=== PATIENT | female | born 1935 | race Caucasian/White ===

== ENCOUNTER 2020-09-03 17:27 | Inpatient (IN) | payer MEDICARE, OTHER, SELFPAY ==
--- NOTE | ~2020-09-03 | XR_ITS ---
EXAMINATION: XR chest 2V DATE: 09/10/2020 17:10 INDICATION: Shortness of breath, CHF exacerbation TECHNIQUE: AP and lateral views of the chest are obtained. COMPARISON: 09/08/2020 FINDINGS: There is stable cardiomegaly. Bibasilar airspace opacities persist with slight improvement on the right. Small pleural effusions are unchanged. There is no pneumothorax. Moderate osteoarthriti s is noted in the shoulders. There is a chronic T12 burst fracture. IMPRESSION: 1. Stable cardiomegaly. 2. Small pleural effusions. 3. Bibasilar airspace opacities with slight improvement on the right, consistent with atelectasis and /or pneumonia and/or pulmonary edema. Reviewed, dictated and finalized at location A. TRONIC GAMING DEVICE SUPERVISOR IMPRESSION: 1. Stable cardiomegaly. 2. Small pleural effusions. 3. Bibasilar airspace opacities with slight improvement on the right, consisten t with atelectasis and/or pneumonia and/or pulmonary edema.
--- NOTE | ~2020-09-03 | US_ITS ---
EXAMINATION: US venous doppler [facility] DATE: 09/08/2020 10:33 INDICATION: Lower limb edema. TECHNIQUE: Grayscale ultrasound images without and with compression and Doppler ultrasound images of the bilateral lower extremity veins were obtained. COMPARISON: None. FINDINGS: The visualized portions of right common femoral vein, profunda (deep) femoral vein, femoral vein, pop liteal vein, posterior tibial veins, and greater saphenous vein outflow are patent. The visualized portions of left common femoral vein, profunda femoral vein, femoral vein, popliteal v ein, posterior tibial veins, and greater saphenous vein outflow are patent. IMPRESSION: 1. No deep venous thrombosis. Reviewed, dictated and finalized at location B. ITY CONTROL SUPERVISOR
--- NOTE | ~2020-09-03 | CT_ITS ---
EXAMINATION: CT brain wo con DATE: 09/08/2020 14:40 INDICATION: Altered mental status. TECHNIQUE: Computed tomography (CT) of the head was performed without intravenous contrast. The mA wa s adjusted according to patient size. Iterative reconstruction technique was employed. The dose-lengt h product was 681.00 mGy-cm. COMPARISON: None FINDINGS: There are scattered areas of low attenuation in the cerebral white matter. There is no intr acranial hemorrhage, acute infarction, or abnormal intracranial mass lesion. The ventricles are zane l in size. There are likely changes of ocular lens replacement surgeries. There is mild mucosal thick ening in right maxillary sinus. The mastoid air cells are normal. IMPRESSION: 1. Extensive nonspecific cerebral white matter disease, which likely represents chronic small vessel ischemic disease. Reviewed, dictated and finalized at location B. NG COACH
--- NOTE | ~2020-09-03 | XR_ITS ---
EXAMINATION: XR chest 1V portable DATE: 09/08/2020 12:41 INDICATION: Shortness of breath TECHNIQUE: frontal view of the chest was obtained. COMPARISON: Chest radiograph dated 09/03/20 FINDINGS: Opacities at the bilateral lower lung zones. Blunting at the costophrenic angles consistent with smal l bilateral pleural effusions. No pneumothorax. Cardiomegaly. IMPRESSION: 1. Opacities in the bilateral lower lung zones consistent with small bilateral pleural effusions and associated basilar atelectasis, pneumonia, pulmonary edema or some combination thereof. 2. Cardiomegaly. Reviewed, dictated and finalized at location A. OPEDIC PHYSICAL THERAPIST IMPRESSION: 1. Opacities in the bilateral lower lung zones consistent with small bilateral pleural effusions and associated basilar atelectasis, pneumonia, pulmonary cherie a or some combination thereof. 2. Cardiomegaly.
--- NOTE | ~2020-09-03 | XR_ITS ---
EXAMINATION: XR chest 1V portable DATE: 09/03/2020 18:04 INDICATION: Diabetes, hypertension and atrial fibrillation presenting with weakness. TECHNIQUE: frontal view of the chest was obtained. COMPARISON: Chest radiograph dated 03/28/2018 FINDINGS: Bilateral lung volumes are decreased. There are opacities in the bilateral lower lung zones consisten t with small bilateral pleural effusions and associated basilar atelectasis and/or pneumonia. There a re perihilar groundglass opacities and increased interstitial pattern consistent with pulmonary edema . No pneumothorax. Cardiomegaly. Moderate scattered degenerative skeletal changes. IMPRESSION: 1. Bilateral lung disease with appearance favoring and congestive heart failure with hilar pulmonary edema, small bilateral pleural effusions and bibasilar atelectasis although differential would includ e pneumonia. 2. Cardiomegaly. Reviewed, dictated and finalized at location A. CARRIER IMPRESSION: 1. Bilateral lung disease with appearance favoring and congestive heart failure with hilar pulmonary edema, small bilateral pleural effusions and bibasilar at electasis although differential would include pneumonia. 2. Cardiomegaly.
[2020-09-03 17:31] VITALS: BP 150/97; PULSE 108; RESP 20; O2SAT 98
--- NOTE | 2020-09-03 17:52 | ECG_ITS ---
Measurements Intervals [place] Rate: 92 P: [place]: 0 QRS: -43 QRSD: 128 T: -27 QT: 363 QTc: 451 Interpretive Statements ATRIAL FIBRILLATION FREQUENT VENTRICULAR PREMATURE COMPLEXES LEFT AXIS DEVIATION LEFT BUNDLE BRANCH BLOCK ABNORMAL ECG Electronically Signed On 09-03-2020 19:56:27 CLAM [employer]OWER by Juan Carvalho D.O.
--- NOTE | 2020-09-03 18:07 | ED.GENADULT ---
HPI - General Adult General Chief complaint: Weakness Stated complaint: Weakness Time Seen by Provider: 09/03/20 17:33 Source: patient History of Present Illness HPI narrative: Patient is a 84 y/o female complaining of severe generalized weakness for several month, but it's worse during last few days. There is no known alleviating or exacerbating factor. She also has chronic bilateral leg swelling for years. She also has some abdominal swelling. Related Data Home Medications Medication Instructions Recorded Confirmed aspirin 81 mg tablet,delayed 81 mg PO DAILY 09/10/19 09/03/20 release alprazolam 1 mg PO DAILY PRN 09/03/20 09/03/20 ondansetron 8 mg PO Q8H PRN 09/03/20 09/03/20 Allergies Allergy/AdvReac Type Severity Reaction Status Date / Time duloxetine Allergy Severe ENTIRE Verified 09/03/20 19:51 BODY BECAME RED AND HOT W/ WEAKNESS, N/V meperidine AdvReac Unknown Confusion Verified 09/03/20 19:51 Review of Systems Constitutional: Constitutional: Denies chills, Denies fever(s), Denies headache(s) and Reports weakness Eyes: Eyes: Denies blurry vision ENT: Denies headache(s) and Denies neck pain Cardiovascular: Cardiovascular: Denies chest pain, Reports leg edema and Denies dyspnea Respiratory: Respiratory: Denies cough and Reports dyspnea Gastrointestinal: Gastrointestinal: Denies abdominal pain, Denies diarrhea, Denies nausea and Denies vomiting Genitourinary: Genitourinary: Denies hematuria and Denies dysuria Musculoskeletal: Musculoskeletal: Denies back pain and Denies neck pain Neurologic: Denies headache(s) and Reports weakness [facility] [place] Past Medical History Medical History (Updated 09/03/20 @ 22:03 by Archana Hernandez MD) Anxiety disorder, unspecified Bilateral primary osteoarthritis of knee Essential (primary) hypertension Iron deficiency anemia due to chronic blood loss Paroxysmal atrial fibrillation Type 2 diabetes mellitus without complications Family History Family History Mother Family history of lung cancer Hypertension Sibling Family history of diabetes mellitus in first degree relative Family history of malignant neoplasm of breast in first degree relative Grandparent Diabetes mellitus Acute myocardial infarction Other Carcinoma of colon Family history of malignant neoplasm of breast Social History Social History Smoking status: Never smoker Second hand tobacco smoke exposure: No Alcohol intake: never Substance use: never Gender identity (if verbalized by the patient): Female Spiritual care concerns: No Exam Const: General: no acute distress and well developed Orientation/consciousness: oriented to person, oriented to place, oriented to time and patient oriented x3 HENMT: Head: normocephalic Ears: external ears normal General nose exam: Normal external nose present Eyes: General: appearance normal, both eyes and all related structures Conjunctivae: conjunctivae normal Neck: Neck: normal visual inspection and full ROM Chest: Chest palpation & inspection: normal inspection of the chest and no tenderness Resp: Effort & Inspection: normal respiratory effort Auscultation: clear to auscultation bilaterally Cardio: Rate: regular rate Rhythm: abnormal rhythm irregularly irregular GI: GI Palp: No abdominal tenderness and Yes Soft to palpation Skin: General skin exam: normal color and turgor normal Neuro: General: oriented to person, oriented to place, oriented to time and patient oriented x3 Cognition (Neuro): normal cognition Extrem: General: normal to inspection, full ROM and pedal edema bilaterally Psych: Appearance: grossly normal Mental Status: mental status grossly normal Affect: normal affect Course Consultations Consultation #1: Discussed with Dr. Goff, who agrees to admit. Date: 09/03/20 Time: 20:04
[2020-09-03 18:59] LABS: Basophils Percent Auto 0.4 % (0.2-1.2); Eosinophils Absolute Auto 0.2 K/mm3 (0-0.3); Eosinophils Percent Auto 1.9 % (0-4.4); Hematocrit 35.8 % (37.0-47.0); Hemoglobin 11.4 g/dL (12.0-15.0); Immature Granulocyte Absolute 0.03 K/mm3 (0.00-0.031); Immature Granulocyte Percent A 0.3 % (0-0.5); Lymphocytes Absolute Auto 1.03 K/mm3 (0.9-3.2); Lymphocytes Percent Auto 10.9 % (18.3-44.2); Mean Corpuscular HGB Conc 31.8 g/dl (32-36); Mean Corpuscular Hemoglobin 26.3 pg (26-34); Mean Corpuscular Volume 82.5 fl (80-100); Mean Platelet Volume 12.3 fl (7.4-10.4); Monocytes Absolute Auto 0.7 K/mm3 (0.1-0.6); Monocytes Percent Auto 6.9 % (2.6-8.5); Neutrophils Absolute Auto 7.5 K/mm3 (1.3-6.7); Neutrophils Percent Auto 79.6 % (45.5-73.1); Platelet Count Result 219 k/mm3 (150-375); Red Blood Count 4.34 M/mm3 (4.2-5.4); Red Cell Distribution Width 19.3 % (11.5-14.5); White Blood Count 9.5 K/mm3 (4.5-10.0)
[2020-09-03 19:12] LABS: Alanine Aminotransferase 11 U/L (4-35); Albumin Level 3.7 g/dL (3.5-5.1); Alkaline Phosphatase 91 U/L (38-126); Anion Gap 7 mmol/L (8-16); Aspartate Amino Transferase 23 U/L (14-36); Bilirubin,Total 1.1 mg/dL (0.2-1.3); Blood Urea Nitrogen 21 mg/dL (7-17); Calcium 9.3 mg/dL (8.4-10.2); Carbon Dioxide 34 mmol/L (22-30); Chloride 97 mmol/L (98-107); Estimated CRCL calculation 41 ml/min; Estimated Glomerular Filt Rate 60; Glucose 144 mg/dL (65-105); Potassium 3.7 mmol/L (3.4-5.0); Sodium 138 mmol/L (137-145)
[2020-09-03 19:24] LABS: NT Pro B Type Natriuretic Pept 8690 PG/ML (5-100); Troponin I 0.016 ng/mL (0.000-0.034)
[2020-09-03 19:45] LABS: INR 1.3; Prothrombin Time 17.1 Seconds (11.1-14.7)
[2020-09-03] MEDS: FUROSEMIDE INJ 40 MG/4 ML VIAL IV PUSH (20:09)
[2020-09-03 21:00] VITALS: O2SAT 98
[2020-09-03 21:21] VITALS: BP 148/91; PULSE 86; RESP 18; TEMP 36.6; O2SAT 96
--- NOTE | 2020-09-03 21:26 | ADMGEN ---
This patient, Nelda Roman, was admitted to Medical Room 343-01. Patient/family oriented to hospital policies and general routines including ID bracelet, bed and alarms, visiting hours, pain management, procedures, bathroom and other care routines, personal items, smoking policy, room service/diet, and visiting hours. Information on how to activate the Rapid Response Team has been discussed. Patient/Family are encouraged to report perceived risks to care and to ask questions if they do not understand what they are told or what they should do.
[2020-09-03 21:30] VITALS: PULSE 92
[2020-09-03 21:48] VITALS: BP 142/98; PULSE 68; RESP 18; TEMP 36.2; O2SAT 98
[2020-09-03 21:57] LABS: Glucose Point of Care 127 (65-105)
[2020-09-03 22:03] LABS: Troponin I 0.015 ng/mL (0.000-0.034)
[2020-09-03 23:17] VITALS: BMI 30.2
[2020-09-04] VITALS (13 sets, daily range): BP systolic 100–154; BP diastolic 51–67; PULSE 68–95; RESP 16–18; TEMP 35.8–36.2; O2SAT 90–99
--- NOTE | 2020-09-04 | ECHO_ITS ---
Patient Info Name: Nelda Roman Age: 84 years : 1935 Gender: Female Ht: 63 in Wt: 170 lbs BSA: 1.88 m2 HR: 86 bpm BP: 154 / 67 mmHg Heart Rhythm: Atrial Fibrillation Technical Quality: Good Exam Date: 09/04/2020 8:23 AM Exam Location: [facility] Exam Room: 341 Patient Status: Inpatient Admit Date: 09/03/2020 Staff Ordering Physician: Awais Sanchez PA-C Irrigation Service Technician: Heaven Santamaria RDCS Attending Provider: Awais Sanchez PA-C Referring Physician: Daniel RICHMOND; Exam Type: CA echo doppler color flow Study Info Complete two-dimensional, color flow and Doppler transthoracic echocardiogram is performed. Summary 1. Left ventricular chamber dimension is mildly enlarged. 2. Left ventricular systolic function is moderately reduced, estimated at 35%. 3. Left atrial chamber dimension is moderately enlarged. 4. Right atrial chamber dimension is severely enlarged. 5. There is no aortic valve stenosis. 6. There is mild to moderate mitral valve regurgitation. 7. There is mild tricuspid valve regurgitation. 8. Severe pulmonary hypertension, estimated pulmonary arterial systolic pressure is 68 mmHg. 9. There is small pericardial effusion without tamponade physiology. Left pleural effusion noted. Left Ventricle Left ventricular chamber dimension is mildly enlarged. Left ventricular systolic function is moderately reduced, estimated at 35%. There is mildly increased left ventricular wall thickness. Left ventricular septal wall motion is abnormal with septal motion related to bundle branch block. The left ventricular diastolic function is indeterminate. Right Ventricle Right ventricular chamber dimension is normal. Right ventricular systolic function is reduced. Left Atria Left atrial chamber dimension is moderately enlarged. Right Atria Right atrial chamber dimension is severely enlarged. Aortic Valve The aortic valve is trileaflet. There is mild aortic valve sclerosis. There is no aortic valve stenosis. There is mild aortic valve regurgitation. Pulmonic Valve The pulmonic valve is normal. There is mild pulmonic regurgitation. Mitral Valve The mitral valve has thickened leaflets. There is mild to moderate mitral valve regurgitation. The mitral valve annulus is mildly calcified. Tricuspid Valve The tricuspid valve leaflets are normal. There is mild tricuspid valve regurgitation. Severe pulmonary hypertension, estimated pulmonary arterial systolic pressure is 68 mmHg. Pericardium/Pleural The pericardium appears normal. There is small pericardial effusion without tamponade physiology. Left pleural effusion noted. Inferior Vena Cava Normal inferior vena cava with no collapse upon inspiration consistent with elevated right atrial pressure, 10 mmHg. Aorta The aortic root size at the sinus of Valsalva is normal. There is mild aortic atherosclerosis. Left Ventricular Outflow Tract Name Value Normal LVOT 2D LVOT Diameter 2.0 cm LVOT Doppler LVOT Peak Gradient 3 mmHg LVOT Mean Gradient 1 mmHg LVOT VTI
[2020-09-04 01:30] LABS: Troponin I < 0.012 ng/mL (0.000-0.034)
[2020-09-04 08:54] LABS: Anion Gap 7 mmol/L (8-16); Blood Urea Nitrogen 21 mg/dL (7-17); Calcium 8.8 mg/dL (8.4-10.2); Carbon Dioxide 34 mmol/L (22-30); Chloride 97 mmol/L (98-107); Estimated CRCL calculation 46 ml/min; Estimated Glomerular Filt Rate > 60; Glucose 104 mg/dL (65-105); Magnesium 1.8 mg/dL (1.6-2.3); Potassium 3.2 mmol/L (3.4-5.0); Sodium 138 mmol/L (137-145)
[2020-09-04] MEDS: traMADol HCL (*CRX) 50 MG TABLET PO ×2 (09:42→20:40)
[2020-09-04] MEDS: PANTOPRAZOLE 40 MG TABLET PO ×2 (09:44→20:40)
[2020-09-04] MEDS: carvediloL 3.125 MG TABLET PO ×2 (09:44→20:40)
[2020-09-04] MEDS: LOSARTAN POTASSIUM 100 MG TABLET PO (09:44)
[2020-09-04] MEDS: ASPIRIN 81 MG ENTERIC TABLET PO (09:44)
[2020-09-04] MEDS: ESCITALOPRAM OXALATE 10 MG TABLET 20 MG PO (09:44)
[2020-09-04] MEDS: FUROSEMIDE INJ 40 MG/4 ML VIAL IV PUSH (09:44)
--- NOTE | 2020-09-04 10:03 | PM.IMHP ---
H&P: HPI History of Present Illness Date/Time: 09/04/20 10:03 Chief complaint: weakness Narrative: Nelda Roman is a 84 year old female with history of CAD, cardiomyopathy (EF of 35%-40% on cardiac cath on 05/2011 per EMR), HTN, GERD, depression/anxiety, past GI bleed (03/2019), and a. fib (not on a/c, rate controlled) who presented to the ED on progressive weakness over the past several weeks. Patient states her weakness has been slowly worsening to a point where she contacted her daughter as she was unable to perform her daily activities and felt miserable on 09/03 prompting her to come into the hospital for further evaluation. It is hard to discern actual timeframe of events as she very talkative and difficult to keep to the topics at hand. Given that, she states she also has had increasing shortness of breath on lesser and lesser exertion and has been noting progressively worsening swelling in her LE the past couple of weeks. She notes she used to see Dr. Scott but no longer sees her nor any other shake packer. She states she also has been nauseous the past several days stating her prescribed anti-emetic medications help very little the past several days, but is somewhat certain she takes her home losartan/HCTZ as prescribed. She does note that she drinks a lot of water at home. She also reports orthopnea, stating she sleeps in a recliner as she cannot lie flat without getting SOB or having back pain. She has no other complaints at this moment. Denies any sick contacts at home. No recent respiratory illness. Denies f/c/s, headaches, dizziness, lightheadedness, cp/palpitations, cough, vomiting, abd pain, changes in BMs, dysuria, hematuria, cloudy urine, calf pain Review of Systems Review of Systems: All systems reviewed & are unremarkable except as noted in HPI and below PMFSH Past Medical History Medical History Anxiety disorder, unspecified Bilateral primary osteoarthritis of knee Cardiomyopathy Cholelithiasis s/p cholecystectomy Essential (primary) hypertension History of GI bleed 03/2019 Iron deficiency anemia due to chronic blood loss Paroxysmal atrial fibrillation Type 2 diabetes mellitus without complications Surgical History Surgical History History of appendectomy History of back surgery History of cholecystectomy History of hysterectomy History of knee surgery Family History Family History Mother Family history of lung cancer Hypertension Sibling Family history of diabetes mellitus in first degree relative Family history of malignant neoplasm of breast in first degree relative Grandparent Diabetes mellitus Acute myocardial infarction Other Carcinoma of colon Family history of malignant neoplasm of breast Social History Social History (Updated 09/04/20 @ 10:23 by Awais Sanchez PA-C) Social History: Patient lives at home alone with daughter occasionally checking in. Wishes her Daughter to be surrogate MDM. She wishes to be DNR. Her PCP is Dr. Galeas Smoking status: Never smoker Second hand tobacco smoke exposure: No Alcohol intake: never Substance use: never Gender identity (if verbalized by the patient): Female Spiritual care concerns: No Meds Home Medications and Allergies Home Medications Medication Instructions Recorded Confirmed Type aspirin 81 mg tablet,delayed 81 mg PO DAILY 09/10/19 09/03/20 History release promethazine 25 mg tablet 25 mg PO TID PRN #40 tablet 12/31/19 09/03/20 Rx carvedilol 3.125 mg tablet 3.125 mg PO Q12H #180 tablet 03/05/20 09/03/20 Rx escitalopram oxalate 20 mg tablet 20 mg PO DAILY #90 tablet 03/05/20 09/03/20 Rx losartan 100 1 tablet PO DAILY #90 tablet 03/05/20 09/03/20 Rx mg-hydrochlorothiazide 25 mg tablet pantoprazole 40 mg tablet,delayed 40 mg PO QAM #90 tablet
[2020-09-04 12:05] LABS: Glucose Point of Care 156 (65-105)
[2020-09-04 17:03] LABS: Glucose Point of Care 113 (65-105)
[2020-09-04] MEDS: POTASSIUM CHLORIDE 20 MEQ PACKET (FOR LIQUID) 60 MEQ PO (17:06)
[2020-09-04 20:48] LABS: Glucose Point of Care 147 (65-105)
[2020-09-05] VITALS (10 sets, daily range): BP systolic 132–155; BP diastolic 61–90; PULSE 70–88; RESP 14–18; TEMP 36.1–37.1; O2SAT 92–99
[2020-09-05 06:11] LABS: Hemoglobin A1C 5.5 % (<5.7)
[2020-09-05 07:10] LABS: Blood Urea Nitrogen 22 mg/dL (7-17); Calcium 8.9 mg/dL (8.4-10.2); Carbon Dioxide > 40 mmol/L (22-30); Chloride 94 mmol/L (98-107); Estimated CRCL calculation 41 ml/min; Estimated Glomerular Filt Rate 60; Glucose 93 mg/dL (65-105); Magnesium 1.7 mg/dL (1.6-2.3); Potassium 3.4 mmol/L (3.4-5.0); Sodium 138 mmol/L (137-145)
[2020-09-05] MEDS: ASPIRIN 81 MG ENTERIC TABLET PO (08:01)
[2020-09-05] MEDS: ESCITALOPRAM OXALATE 10 MG TABLET 20 MG PO (08:01)
[2020-09-05] MEDS: LOSARTAN POTASSIUM 100 MG TABLET PO (08:01)
[2020-09-05] MEDS: carvediloL 3.125 MG TABLET PO ×2 (08:02→21:43)
[2020-09-05] MEDS: FUROSEMIDE INJ 40 MG/4 ML VIAL IV PUSH (08:02)
[2020-09-05] MEDS: PANTOPRAZOLE 40 MG TABLET PO ×2 (08:22→21:42)
[2020-09-05 08:42] LABS: Hematocrit 31.3 % (37.0-47.0); Hemoglobin 10.1 g/dL (12.0-15.0); Mean Corpuscular HGB Conc 32.3 g/dl (32-36); Mean Corpuscular Hemoglobin 26.6 pg (26-34); Mean Corpuscular Volume 82.6 fl (80-100); Mean Platelet Volume 12.9 fl (7.4-10.4); Platelet Count Result 190 k/mm3 (150-375); Red Blood Count 3.79 M/mm3 (4.2-5.4); Red Cell Distribution Width 19.2 % (11.5-14.5); White Blood Count 10.3 K/mm3 (4.5-10.0)
[2020-09-05 09:11] LABS: Glucose Point of Care 102 (65-105)
--- NOTE | 2020-09-05 10:13 | PM.IMPN ---
Progress Note: A&P Assessment and Plan (1) Acute on chronic systolic (congestive) heart failure: Code(s): I50.23 - Acute on chronic systolic (congestive) heart failure Status: Acute Assessment and Plan: With acute respiratory failure with hypoxia after admitted to the floor; was placed on 2L O2 on 09/04; now weaned to 1L O2. B/l LE edema somewhat improving. CXR 09/03 showing evidence of CHF exacerbation. Echo 09/04 shows EF of 35%, severe pulm hypertension, small pericardial effusion noted without evidence of tamponade. Similar EF cath findings in 2010. Followed Dr. Scott but stopped going to see her and does not wish to see her again. Will continue IV 40 mg lasix daily for now Wean supplemental O2 as tolerated Monitor I/Os, daily weights 2g Na diet, fluid restriction Monitor (2) Weakness: Code(s): R53.1 - Weakness Status: Acute Assessment and Plan: Progressive weakness over the past several weeks. Possibly due to worsening CHF, but also deconditioning. Pt/OT Patient appears to not be agreeable to SNF/rehab at this moment Monitor (3) Anxiety disorder, unspecified: Qualifiers: Anxiety disorder type: generalized anxiety disorder Qualified Code(s): F41.1 - Generalized anxiety disorder Code(s): F41.9 - Anxiety disorder, unspecified Status: Acute Assessment and Plan: No acute issues at this time Continue home medications (4) Essential (primary) hypertension: Code(s): I10 - Essential (primary) hypertension Status: Acute Assessment and Plan: BP 130s sys this morning Continue coreg, losartan Will do IV diuresis with Lasix and hold HCTZ for now Monitor with diuresis (5) Paroxysmal atrial fibrillation: Code(s): I48.0 - Paroxysmal atrial fibrillation Status: Acute Assessment and Plan: Rate controlled. Not on any a/c partly due to past lower GI bleed and mainly because she refuses any a/c Continue coreg at this time Monitor Tele for now (6) Type 2 diabetes mellitus without complications: Code(s): E11.9 - Type 2 diabetes mellitus without complications Status: Acute Assessment and Plan: Does not appear to be on any medications at home. A1c 5.5 Accuchecks ACHS, hypoglycemia protocol, correctional insulin, 2g Na diet for now (7) Nausea: Code(s): R11.0 - Nausea Status: Acute Assessment and Plan: Appears to be chronic in nature as she is on multiple antiemetics but notes that they do not help some of the time. This appears to have improved since yesterday. Will continue Zofran for now and will make adjustments as needed Suspect her GERD is playing a role given her vague abdominal discomfort associated with her Nausea; will continue increased PPI frequency at Q12 Will hold NSAIDS for now Consider GI consult if no improvement; she may need a EGD in the future to rule out possible gastritis/ulcers given her NSAID usage (8) Low back pain: Qualifiers: Chronicity: chronic Back pain laterality: bilateral Sciatica presence: without sciatica Qualified Code(s): M54.5 - Low back pain; G89.29 - Other chronic pain Code(s): M54.5 - Low back pain Status: Acute Assessment and Plan: No complaints for me today Will continue her home tramadol Monitor (9) Iron deficiency anemia due to chronic blood loss: Code(s): D50.0 - Iron deficiency anemia secondary to blood loss (chronic) Status: Acute Assessment and Plan: H&H appears stable compared to previous year. No evidence of acute blood loss Monitor F/u with PCP Daily H&H
[2020-09-05 11:23] LABS: Glucose Point of Care 96 (65-105)
[2020-09-06 05:28] VITALS: BP 132/88; PULSE 75; RESP 20; TEMP 36.3; O2SAT 96
[2020-09-06 05:38] LABS: Hemoglobin 10.2 g/dL (12.0-15.0); Mean Corpuscular HGB Conc 31.9 g/dl (32-36); Mean Corpuscular Hemoglobin 25.9 pg (26-34); Mean Corpuscular Volume 81.2 fl (80-100); Mean Platelet Volume 12.3 fl (7.4-10.4); Platelet Count Result 208 k/mm3 (150-375); Red Blood Count 3.94 M/mm3 (4.2-5.4); Red Cell Distribution Width 19.1 % (11.5-14.5); White Blood Count 9.1 K/mm3 (4.5-10.0)
[2020-09-06 06:28] LABS: Blood Urea Nitrogen 24 mg/dL (7-17); Calcium 9.1 mg/dL (8.4-10.2); Carbon Dioxide > 40 mmol/L (22-30); Chloride 94 mmol/L (98-107); Estimated CRCL calculation 41 ml/min; Estimated Glomerular Filt Rate 60; Glucose 86 mg/dL (65-105); Magnesium 1.6 mg/dL (1.6-2.3); Potassium 2.9 mmol/L (3.4-5.0); Sodium 139 mmol/L (137-145)
[2020-09-06 09:00] VITALS: O2SAT 91
[2020-09-06] MEDS: ASPIRIN 81 MG ENTERIC TABLET PO (09:06)
[2020-09-06] MEDS: PANTOPRAZOLE 40 MG TABLET PO ×2 (09:06→20:03)
[2020-09-06] MEDS: LOSARTAN POTASSIUM 100 MG TABLET PO (09:06)
[2020-09-06] MEDS: ESCITALOPRAM OXALATE 10 MG TABLET 20 MG PO (09:06)
[2020-09-06 09:07] VITALS: PULSE 74
[2020-09-06] MEDS: FUROSEMIDE INJ 40 MG/4 ML VIAL IV PUSH (09:07)
[2020-09-06] MEDS: carvediloL 3.125 MG TABLET PO ×2 (09:07→20:03)
[2020-09-06] MEDS: POTASSIUM CHLORIDE 20 MEQ TABLET 40 MEQ PO (09:30)
[2020-09-06] MEDS: ONDANSETRON HCL ODT 4 MG TABLET PO (12:29)
--- NOTE | 2020-09-06 12:38 | PM.IMPN ---
Progress Note: A&P Assessment and Plan (1) Acute on chronic systolic (congestive) heart failure: Code(s): I50.23 - Acute on chronic systolic (congestive) heart failure Status: Acute Assessment and Plan: With acute respiratory failure with hypoxia after admitted to the floor; was placed on 2L O2 on 09/04; now weaned to 1L O2. B/l LE edema somewhat improving. CXR 09/03 showing evidence of CHF exacerbation. Echo 09/04 shows EF of 35%, severe pulm hypertension, small pericardial effusion noted without evidence of tamponade. Similar EF cath findings in 2010. Followed Dr. Scott but stopped going to see her and does not wish to see her again. Lung exam appears to have improved since yesterday Will continue IV 40 mg lasix daily for now Wean supplemental O2 as tolerated Monitor I/Os, daily weights 2g Na diet, fluid restriction Monitor (2) Weakness: Code(s): R53.1 - Weakness Status: Acute Assessment and Plan: Progressive weakness over the past several weeks. Possibly due to worsening CHF, but also deconditioning. Pt/OT Patient not agreeable to SNF/rehab at this moment; wishes to go home Monitor (3) Anxiety disorder, unspecified: Qualifiers: Anxiety disorder type: generalized anxiety disorder Qualified Code(s): F41.1 - Generalized anxiety disorder Code(s): F41.9 - Anxiety disorder, unspecified Status: Acute Assessment and Plan: No acute issues at this time Continue home medications (4) Essential (primary) hypertension: Code(s): I10 - Essential (primary) hypertension Status: Acute Assessment and Plan: BP 130s sys this morning Continue coreg, losartan Will do IV diuresis with Lasix and hold HCTZ for now Monitor with diuresis (5) Paroxysmal atrial fibrillation: Code(s): I48.0 - Paroxysmal atrial fibrillation Status: Acute Assessment and Plan: Rate controlled. Not on any a/c partly due to past lower GI bleed and mainly because she refuses any a/c Continue coreg at this time Monitor (6) Type 2 diabetes mellitus without complications: Code(s): E11.9 - Type 2 diabetes mellitus without complications Status: Acute Assessment and Plan: Does not appear to be on any medications at home. A1c 5.5 2g Na diet for now Monitor daily serum glucose (7) Nausea: Code(s): R11.0 - Nausea Status: Acute Assessment and Plan: Appears to be chronic in nature as she is on multiple antiemetics but notes that they do not help some of the time. Slight nausea this afternoon after she had her morning meds, but has not asked for her antiemetic. Will continue Zofran for now and will make adjustments as needed Suspect her GERD is playing a role given her vague abdominal discomfort associated with her Nausea; will continue increased PPI frequency at Q12 Will hold NSAIDS for now Consider GI consult if no improvement; she may need a EGD in the future to rule out possible gastritis/ulcers given her NSAID usage (8) Low back pain: Qualifiers: Chronicity: chronic Back pain laterality: bilateral Sciatica presence: without sciatica Qualified Code(s): M54.5 - Low back pain; G89.29 - Other chronic pain Code(s): M54.5 - Low back pain Status: Acute Assessment and Plan: No complaints for me today Will continue her home tramadol Monitor (9) Iron deficiency anemia due to chronic blood loss: Code(s): D50.0 - Iron deficiency anemia secondary to blood loss (chronic) Status: Acute Assessment and Plan: H&H appears stable compared to previous year. No evidence of acute blood loss
[2020-09-06 15:37] VITALS: BP 124/68; PULSE 80; RESP 18; TEMP 36.4; O2SAT 95
[2020-09-06 15:50] LABS: Anion Gap 5 mmol/L (8-16); Blood Urea Nitrogen 23 mg/dL (7-17); Calcium 9.4 mg/dL (8.4-10.2); Carbon Dioxide 39 mmol/L (22-30); Chloride 95 mmol/L (98-107); Estimated CRCL calculation 37 ml/min; Estimated Glomerular Filt Rate 53; Glucose 122 mg/dL (65-105); Potassium 3.9 mmol/L (3.4-5.0); Sodium 139 mmol/L (137-145)
[2020-09-06 20:03] VITALS: PULSE 74
[2020-09-06 20:12] VITALS: BP 152/82; PULSE 127; RESP 18; TEMP 37.3; O2SAT 94
[2020-09-07] VITALS (10 sets, daily range): BP systolic 133–161; BP diastolic 90–108; PULSE 90–146; RESP 20; TEMP 36.3–36.6; O2SAT 96–97
[2020-09-07 06:52] LABS: Blood Urea Nitrogen 24 mg/dL (7-17); Calcium 9.6 mg/dL (8.4-10.2); Carbon Dioxide > 40 mmol/L (22-30); Chloride 94 mmol/L (98-107); Estimated CRCL calculation 46 ml/min; Estimated Glomerular Filt Rate > 60; Glucose 120 mg/dL (65-105); Magnesium 1.6 mg/dL (1.6-2.3); Potassium 3.4 mmol/L (3.4-5.0); Sodium 141 mmol/L (137-145)
[2020-09-07] MEDS: carvediloL 3.125 MG TABLET PO ×2 (07:46→22:58)
[2020-09-07] MEDS: ASPIRIN 81 MG ENTERIC TABLET PO (07:47)
[2020-09-07] MEDS: ESCITALOPRAM OXALATE 10 MG TABLET 20 MG PO (07:47)
[2020-09-07] MEDS: PANTOPRAZOLE 40 MG TABLET PO ×2 (07:47→22:57)
[2020-09-07] MEDS: FUROSEMIDE INJ 40 MG/4 ML VIAL IV PUSH ×2 (07:47→17:31)
[2020-09-07] MEDS: LOSARTAN POTASSIUM 100 MG TABLET PO (07:47)
--- NOTE | 2020-09-07 09:05 | PM.IMPN ---
Progress Note: A&P Assessment and Plan (1) Acute on chronic systolic (congestive) heart failure: Code(s): I50.23 - Acute on chronic systolic (congestive) heart failure Status: Acute Assessment and Plan: With acute respiratory failure with hypoxia after admitted to the floor; was placed on 2L O2 on 09/04; now weaned to 1L O2. B/l LE edema somewhat improving. CXR 09/03 showing evidence of CHF exacerbation. Echo 09/04 shows EF of 35%, severe pulm hypertension, small pericardial effusion noted without evidence of tamponade. Similar EF cath findings in 2010. Followed Dr. Scott but stopped going to see her and does not wish to see her again. Lung exam appears to be stable since yesterday Will continue IV 40 mg lasix daily for now. Will do another IV 40 mg lasix once this afternoon, as well Wean supplemental O2 as tolerated Monitor I/Os, daily weights 2g Na diet, fluid restriction Monitor (2) Weakness: Code(s): R53.1 - Weakness Status: Acute Assessment and Plan: Progressive weakness over the past several weeks. Possibly due to worsening CHF, but also deconditioning. Pt/OT Patient not agreeable to SNF/rehab at this moment; wishes to go home Monitor (3) Anxiety disorder, unspecified: Qualifiers: Anxiety disorder type: generalized anxiety disorder Qualified Code(s): F41.1 - Generalized anxiety disorder Code(s): F41.9 - Anxiety disorder, unspecified Status: Acute Assessment and Plan: No acute issues at this time Continue home medications (4) Essential (primary) hypertension: Code(s): I10 - Essential (primary) hypertension Status: Acute Assessment and Plan: BP 140s sys this morning Continue coreg, losartan Will do IV diuresis with Lasix and hold HCTZ for now Monitor with diuresis (5) Paroxysmal atrial fibrillation: Code(s): I48.0 - Paroxysmal atrial fibrillation Status: Acute Assessment and Plan: Tachycardic overnight and this morning with 120s-130s. Gave orders to give coreg early and place on telemetry; appears rate has improved since then and now in 80s at time of visit. Not on any a/c partly due to past lower GI bleed and mainly because she adamantly refuses any a/c. Continue coreg at this time; will consider increasing dose if continued tachycardia She will likely need op referral to sales and events coordinator for further management given that she is refusing to see HCG Monitor (6) Type 2 diabetes mellitus without complications: Code(s): E11.9 - Type 2 diabetes mellitus without complications Status: Acute Assessment and Plan: Does not appear to be on any medications at home. A1c 5.5 2g Na diet for now Monitor daily serum glucose (7) Nausea: Code(s): R11.0 - Nausea Status: Acute Assessment and Plan: Appears to be chronic in nature as she is on multiple antiemetics but notes that they do not help some of the time. Improved nausea overnight; no complaints today Will continue Zofran for now and will make adjustments as needed Suspect her GERD is playing a role given her vague abdominal discomfort associated with her Nausea; will continue increased PPI frequency at Q12 Will hold NSAIDS for now Consider GI consult if no improvement; she may need a EGD in the future to rule out possible gastritis/ulcers given her NSAID usage (8) Low back pain: Qualifiers: Chronicity: chronic Back pain laterality: bilateral Sciatica presence: without sciatica Qualified Code(s): M54.5 - Low back pain; G89.29 - Other chronic pain Code(s): M54.5 - Low back pain Status: Acute Assessment and Plan: No complaints for me today
[2020-09-07] MEDS: POTASSIUM CHLORIDE 20 MEQ TABLET 40 MEQ PO (10:36)
[2020-09-07] MEDS: MAGNESIUM SULF 1 GM/D5W 100 ML 1 GM/100 ML BAG IVPB (10:37)
--- NOTE | 2020-09-07 11:01 | PCOTNOTE ---
Attempted to see patient this am, however patient refused. Pt stated, I don't feel like it right now. Pt kept eyes closed with head turned away. Encouraged patient to participate, however patient still declined.
[2020-09-07] MEDS: traMADol HCL (*CRX) 50 MG TABLET PO (22:58)
[2020-09-08] VITALS (10 sets, daily range): BP systolic 126–138; BP diastolic 75–96; PULSE 74–126; O2SAT 97
[2020-09-08 06:14] LABS: Blood Urea Nitrogen 21 mg/dL (7-17); Carbon Dioxide > 40 mmol/L (22-30); Chloride 95 mmol/L (98-107); Estimated CRCL calculation 52 ml/min; Estimated Glomerular Filt Rate > 60; Glucose 86 mg/dL (65-105); Magnesium 1.7 mg/dL (1.6-2.3); Potassium 3.1 mmol/L (3.4-5.0); Sodium 139 mmol/L (137-145)
[2020-09-08] MEDS: POTASSIUM CHLORIDE 20 MEQ TABLET 40 MEQ PO (09:21)
[2020-09-08] MEDS: PANTOPRAZOLE 40 MG TABLET PO ×2 (09:22→20:19)
[2020-09-08] MEDS: ESCITALOPRAM OXALATE 10 MG TABLET 20 MG PO (09:22)
[2020-09-08] MEDS: carvediloL 3.125 MG TABLET PO (09:22)
[2020-09-08] MEDS: ASPIRIN 81 MG ENTERIC TABLET PO (09:22)
[2020-09-08] MEDS: LOSARTAN POTASSIUM 100 MG TABLET PO (09:22)
[2020-09-08] MEDS: FUROSEMIDE INJ 40 MG/4 ML VIAL IV PUSH (09:41)
[2020-09-08] MEDS: LORazepam INJ (*CRX) 2 MG/ML VIAL 0.5 MG IM (11:52)
--- NOTE | 2020-09-08 11:56 | PC.NURSE ---
Pt being verbally and physically aggressive towards staff. Awais esteban.
[2020-09-08 12:12] LABS: Basophils Absolute Auto 0.1 K/mm3 (0.0-0.1); Basophils Percent Auto 0.7 % (0.2-1.2); Eosinophils Absolute Auto 0.2 K/mm3 (0-0.3); Eosinophils Percent Auto 1.2 % (0-4.4); Hematocrit 37.5 % (37.0-47.0); Hemoglobin 11.9 g/dL (12.0-15.0); Immature Granulocyte Absolute 0.05 K/mm3 (0.00-0.031); Immature Granulocyte Percent A 0.4 % (0-0.5); Lymphocytes Absolute Auto 1.71 K/mm3 (0.9-3.2); Lymphocytes Percent Auto 13.3 % (18.3-44.2); Mean Corpuscular HGB Conc 31.7 g/dl (32-36); Mean Corpuscular Hemoglobin 26.4 pg (26-34); Mean Corpuscular Volume 83.3 fl (80-100); Mean Platelet Volume 11.9 fl (7.4-10.4); Monocytes Absolute Auto 1.2 K/mm3 (0.1-0.6); Monocytes Percent Auto 8.9 % (2.6-8.5); Neutrophils Absolute Auto 9.7 K/mm3 (1.3-6.7); Neutrophils Percent Auto 75.5 % (45.5-73.1); Platelet Count Result 287 k/mm3 (150-375); Red Cell Distribution Width 20.1 % (11.5-14.5); White Blood Count 12.9 K/mm3 (4.5-10.0)
--- NOTE | 2020-09-08 13:16 | PCOTNOTE ---
Attempted therapy session with patient, but nursing reported patient was combative today and to hold off on therapy for the day as she had just been given meds to calm her down.
--- NOTE | 2020-09-08 14:24 | PM.IMPN ---
Progress Note: A&P Assessment and Plan (1) Acute on chronic systolic (congestive) heart failure: Code(s): I50.23 - Acute on chronic systolic (congestive) heart failure Status: Acute Assessment and Plan: With acute respiratory failure with hypoxia after admitted to the floor; was placed on 2L O2 on 09/04; now weaned to RA. B/l LE edema somewhat improving yesterday, unable to assess today as patient refused. CXR 09/03 showing evidence of CHF exacerbation; repeat CXR 09/08 shows similar, if not improved findings. Pneumonia on differential, although felt to be less likely as she is afebrile and is now on RA. Echo 09/04 shows EF of 35%, severe pulm hypertension, small pericardial effusion noted without evidence of tamponade. Similar EF cath findings in 2010. Followed Dr. Scott but stopped going to see her and does not wish to see her again. Will stop IV lasix and switch to home HCTZ tomorrow Monitor I/Os, daily weights Home O2 eval prior to discharge 2g Na diet, fluid restriction Monitor (2) Acute encephalopathy: Code(s): G93.40 - Encephalopathy, unspecified Status: Acute Assessment and Plan: Patient has had intermittent confusion during her hospital stay, however, today was more combative with nursing staff. She is now calmer, resting at time of my visit. Per CC who spoke with daughter, Carmela, patient is occasionally confused at home as well, although patient lives by herself so it is hard to tell how often she gets confused. Head CT was unremarkable for acute intracranial findings. CXR questionable for pneumonia, although at this time I feel respiratory issues are more related to CHF exacerbation. UA has been ordered. Patient could very well have mild dementia that has been exacerbated by hospitalization cause acute delirium. Await UA to be drawn Monitor closely (3) Weakness: Code(s): R53.1 - Weakness Status: Acute Assessment and Plan: Progressive weakness over the past several weeks. Possibly due to worsening CHF, but also deconditioning. Pt/OT Patient not agreeable to SNF/rehab at this moment; wishes to go home. CC following Monitor (4) Anxiety disorder, unspecified: Qualifiers: Anxiety disorder type: generalized anxiety disorder Qualified Code(s): F41.1 - Generalized anxiety disorder Code(s): F41.9 - Anxiety disorder, unspecified Status: Acute Assessment and Plan: No acute issues at this time Continue home medications (5) Essential (primary) hypertension: Code(s): I10 - Essential (primary) hypertension Status: Acute Assessment and Plan: BP 120s sys this morning Continue coreg; increasing to 6.25 mg Q12 given occasional tachycardia. Continue losartan Stop IV diuresis and switch to home PO HCTZ Monitor with diuresis (6) Paroxysmal atrial fibrillation: Code(s): I48.0 - Paroxysmal atrial fibrillation Status: Acute Assessment and Plan: Sporadically tachycardic particularly when patient is active. Not on any a/c partly due to past lower GI bleed and mainly because she adamantly refuses any a/c. Continue coreg at this time; will increase to 6.25 mg tonight given occasional tachycardia She will likely need op referral to accounting officer for further management given that she is refusing to see HCG Monitor (7) Type 2 diabetes mellitus without complications: Code(s): E11.9 - Type 2 diabetes mellitus without complications Status: Acute Assessment and Plan: Does not appear to be on any medications at home. A1c 5.5 2g Na diet for now Monitor daily serum glucose (8) Nausea: Code(s): R11.0 - Nausea Status: Acute
[2020-09-08] MEDS: POTASSIUM CITRATE 5 MEQ TAB CR 10 MEQ PO (14:59)
[2020-09-08] MEDS: hydroCHLOROthiazide 25 MG TABLET PO (14:59)
--- NOTE | 2020-09-08 15:16 | PCRCNOTE ---
ATTEMPTED HOME O2 EVAL, PT REFUSED AND COMBATIVE. RN WAS UNABLE TO GET PT TO COOPERATE. PT ON ROOM AIR, REFUSING TO WEAR O2 AND REFUSING PULSE OX SPOT CHECK. RN TO NOTIFY PHYSICIAN.
[2020-09-08] MEDS: carvediloL 6.25 MG TABLET PO (20:19)
[2020-09-09] VITALS (9 sets, daily range): BP systolic 133; BP diastolic 79; PULSE 70–135; RESP 16; TEMP 36.6; O2SAT 97
[2020-09-09 07:14] LABS: Basophils Absolute Auto 0.1 K/mm3 (0.0-0.1); Basophils Percent Auto 0.9 % (0.2-1.2); Eosinophils Absolute Auto 0.1 K/mm3 (0-0.3); Hematocrit 35.6 % (37.0-47.0); Hemoglobin 11.4 g/dL (12.0-15.0); Immature Granulocyte Absolute 0.04 K/mm3 (0.00-0.031); Immature Granulocyte Percent A 0.4 % (0-0.5); Immature Platelet Fraction Pct 7.6 % (0.9-11.2); Lymphocytes Absolute Auto 1.83 K/mm3 (0.9-3.2); Mean Corpuscular Hemoglobin 25.9 pg (26-34); Mean Corpuscular Volume 80.7 fl (80-100); Mean Platelet Volume 12.5 fl (7.4-10.4); Neutrophils Absolute Auto 7.1 K/mm3 (1.3-6.7); Neutrophils Percent Auto 69.7 % (45.5-73.1); Platelet Count Result 200 k/mm3 (150-375); Red Blood Count 4.41 M/mm3 (4.2-5.4); Red Cell Distribution Width 20.1 % (11.5-14.5); White Blood Count 10.2 K/mm3 (4.5-10.0)
[2020-09-09 07:25] LABS: Anion Gap 7 mmol/L (8-16); Blood Urea Nitrogen 24 mg/dL (7-17); Calcium 9.5 mg/dL (8.4-10.2); Carbon Dioxide 38 mmol/L (22-30); Chloride 96 mmol/L (98-107); Estimated CRCL calculation 52 ml/min; Estimated Glomerular Filt Rate > 60; Glucose 106 mg/dL (65-105); Magnesium 1.8 mg/dL (1.6-2.3); Potassium 3.4 mmol/L (3.4-5.0); Sodium 141 mmol/L (137-145)
--- NOTE | 2020-09-09 09:04 | PCOTNOTE ---
Patient irritable and refusing to participate in any ADLs or UB exercises with encouragement. Will attempt again if appropriate to see for OT.
--- NOTE | 2020-09-09 10:29 | PCPTNOTE ---
The PT treatment was unable to be completed today due to patient refusal. Will continue per Plan of Care frequency and duration.
[2020-09-09] MEDS: carvediloL 6.25 MG TABLET PO ×2 (10:32→20:03)
[2020-09-09] MEDS: ALPRAZolam (*CRX) 0.5 MG TABLET 1 MG PO (10:32)
[2020-09-09] MEDS: ESCITALOPRAM OXALATE 10 MG TABLET 20 MG PO (10:32)
[2020-09-09] MEDS: hydroCHLOROthiazide 25 MG TABLET PO (10:32)
[2020-09-09] MEDS: PANTOPRAZOLE 40 MG TABLET PO ×2 (10:33→20:03)
[2020-09-09] MEDS: LOSARTAN POTASSIUM 100 MG TABLET PO (10:33)
[2020-09-09] MEDS: ASPIRIN 81 MG ENTERIC TABLET PO (10:33)
[2020-09-09] MEDS: POTASSIUM CITRATE 5 MEQ TAB CR 10 MEQ PO (10:33)
--- NOTE | 2020-09-09 14:08 | PC.NURSE ---
Encouraging patient to use incentive spirometer today, patient is refusing. Education for need given.
--- NOTE | 2020-09-09 15:45 | PCRCNOTE ---
HOME O2 EVAL NOT COMPLETED. PT RESTING COMFORTABLY ON ROOM AIR AT THIS TIME. CURRENTLY RN SUGGESTED I DO NOT WAKE FOR EVAL, DUE TO SIGNIFICANT AGITATION.
--- NOTE | 2020-09-09 16:16 | PM.IMPN ---
Progress Note: A&P Assessment and Plan (1) Acute on chronic systolic (congestive) heart failure: Code(s): I50.23 - Acute on chronic systolic (congestive) heart failure Status: Acute Assessment and Plan: With acute respiratory failure with hypoxia after admitted to the floor; was placed on 2L O2 on 09/04; now weaned to RA. BLE edema remains 1-2+. Regino pan ordered. CXR 09/03 showing evidence of CHF exacerbation; repeat CXR 09/08 shows similar, if not improved findings. Pneumonia on differential, although felt to be less likely as she is afebrile and is now on RA. Echo 09/04 shows EF of 35%, severe pulm hypertension, small pericardial effusion noted without evidence of tamponade. Similar EF cath findings in 2010. Followed Dr. Scott but stopped going to see her and does not wish to see her again. stop IV lasix yesterday, tried home HCTZ yesterday and today but it did not provide enough diruesis, changing to oral lasix tomorrow morning. Monitor I/Os, daily weights Home O2 eval prior to discharge 2g Na diet, fluid restriction Monitor (2) Acute encephalopathy: Code(s): G93.40 - Encephalopathy, unspecified Status: Acute Assessment and Plan: Patient has had intermittent confusion during her hospital stay at beginning, then was more combative with nursing staff. She is now calmer, resting at time of my visit. Per CC who spoke with daughter, Carmela, patient is occasionally confused at home as well, although patient lives by herself so it is hard to tell how often she gets confused. Head CT was unremarkable for acute intracranial findings. CXR questionable for pneumonia, although likely respiratory issues are more related to CHF exacerbation. UA has been ordered. may improve as CHF improves and possible UTI treated. UA to be collected, urine culture ordered, then IV Rocephin to treat until CX results. Monitor closely (3) Weakness: Code(s): R53.1 - Weakness Status: Acute Assessment and Plan: Progressive weakness over the past several weeks. Possibly due to worsening CHF, but also deconditioning. Pt/OT Patient not agreeable to SNF/rehab at this moment; wishes to go home. Care Coordination following may improve as CHF improves and possible UTI treated. Monitor (4) Anxiety disorder, unspecified: Qualifiers: Anxiety disorder type: generalized anxiety disorder Qualified Code(s): F41.1 - Generalized anxiety disorder Code(s): F41.9 - Anxiety disorder, unspecified Status: Acute Assessment and Plan: No acute issues at this time Continue home medications (5) Essential (primary) hypertension: Code(s): I10 - Essential (primary) hypertension Status: Acute Assessment and Plan: BP 130s sys today. Continue coreg; increased to 6.25 mg Q12 given occasional tachycardia. Continue losartan Stop IV diuresis and switch to home PO HCTZ Monitor with further diuresis tomorrow. (6) Paroxysmal atrial fibrillation: Code(s): I48.0 - Paroxysmal atrial fibrillation Status: Acute Assessment and Plan: Sporadically tachycardic particularly when patient is active. Not on any anticoagulation partly due to past lower GI bleed, her significant fall risk due to confusion/dementia/encepholopathy/erratic behavior (per family report), and mainly because she adamantly refuses any anticoagulation. She is having intermittent episodes of Afib with HR 130s, then quickly and spontaneously resolves to NSR HR 70 - 80s. Continue coreg at this time; increased to 6.25 mg yesterday given occasional tachycardia She will likely need Outpatient referral to elevator service mechanic for further management. had continuous cardiac telemetry monitoring at admission. Monitor __
[2020-09-09 18:52] LABS: SARS-CoV-2 RNA PCR Negative
[2020-09-10] VITALS (10 sets, daily range): BP systolic 143–148; BP diastolic 80–93; PULSE 72–150; RESP 18; TEMP 36.6; O2SAT 94–95
[2020-09-10 05:55] LABS: Ammonia < 9 umol/L (9-30)
[2020-09-10 05:56] LABS: Hematocrit 37.2 % (37.0-47.0); Hemoglobin 11.9 g/dL (12.0-15.0); Immature Platelet Fraction Pct 8.8 % (0.9-11.2); Mean Corpuscular Hemoglobin 26.3 pg (26-34); Mean Corpuscular Volume 82.1 fl (80-100); Mean Platelet Volume 12.6 fl (7.4-10.4); Platelet Count Result 238 k/mm3 (150-375); Red Blood Count 4.53 M/mm3 (4.2-5.4); Red Cell Distribution Width 20.1 % (11.5-14.5); White Blood Count 9.4 K/mm3 (4.5-10.0)
[2020-09-10 06:05] LABS: NT Pro B Type Natriuretic Pept 7030 PG/ML (5-100)
[2020-09-10 06:29] LABS: Alanine Aminotransferase 16 U/L (4-35); Albumin Level 3.4 g/dL (3.5-5.1); Alkaline Phosphatase 78 U/L (38-126); Anion Gap 5 mmol/L (8-16); Aspartate Amino Transferase 30 U/L (14-36); Bilirubin,Total 1.3 mg/dL (0.2-1.3); Blood Urea Nitrogen 22 mg/dL (7-17); Calcium 9.4 mg/dL (8.4-10.2); Carbon Dioxide 38 mmol/L (22-30); Chloride 97 mmol/L (98-107); Estimated CRCL calculation 46 ml/min; Estimated Glomerular Filt Rate > 60; Glucose 102 mg/dL (65-105); Potassium 3.3 mmol/L (3.4-5.0); Sodium 140 mmol/L (137-145)
[2020-09-10] MEDS: POTASSIUM CHLORIDE 20 MEQ TABLET.ER PO ×3 (07:53→16:00)
[2020-09-10] MEDS: ASPIRIN 81 MG ENTERIC TABLET PO (07:53)
[2020-09-10] MEDS: carvediloL 6.25 MG TABLET PO ×2 (07:54→20:03)
[2020-09-10] MEDS: POTASSIUM CITRATE 5 MEQ TAB CR 10 MEQ PO (07:56)
[2020-09-10] MEDS: ESCITALOPRAM OXALATE 10 MG TABLET 20 MG PO (07:56)
[2020-09-10] MEDS: LOSARTAN POTASSIUM 100 MG TABLET PO (07:56)
[2020-09-10] MEDS: FUROSEMIDE 40 MG TABLET PO (07:56)
[2020-09-10] MEDS: PANTOPRAZOLE 40 MG TABLET PO ×2 (07:56→20:03)
[2020-09-10 10:15] LABS: Add Urine Microscopic? YES; Appearance Urine Clear (Clear); Bilirubin Urine Negative (Negative); Blood Urine Negative (Negative); Color Urine Yellow (Yellow); Glucose Urine UA Negative (Negative); Ketones Urine Negative (Negative); Leukocyte Esterase Ur 1+ LEU/UL (Negative); Mucus Urine Rare /lpf; Nitrate Urine Negative (Negative); Protein Urine Negative (Negative); RBC Urine 0-2 /hpf (0-2); Specific Grav Ur 1.011 (1.001-1.035); Squamous Epithelial Cell Urine Rare /hpf (Few)
--- NOTE | 2020-09-10 10:18 | WPDCDIQUERY2 ---
CDI Query Clarification Request -Acute encephalopathy has been documented Please further specify type of encephalopathy: Metabolic Toxic Hypoxic Hepatic Hypertension Other Unable to determine <Ling Howard RN - Last Filed: 09/10/20 10:20> Clarified Diagnosis (1) Acute on chronic systolic (congestive) heart failure: Code(s): I50.23 - Acute on chronic systolic (congestive) heart failure <Ling Howard RN - Last Filed: 09/10/20 10:20> Status: Acute <Ling Howard RN - Last Filed: 09/10/20 10:20> (2) Acute encephalopathy: Code(s): G93.40 - Encephalopathy, unspecified <Ling Howard RN - Last Filed: 09/10/20 10:20> Status: Acute <Ling Howard RN - Last Filed: 09/10/20 10:20> Assessment and Plan: Unable to Determine Type of Encephalopathy, as her Acute encephalopathy is most likely Multi-Factorial in nature/cause. Possible causes include: Metabolic = Dementia Toxic = possible UTI, Metabolic = CHF exacerbation (leg/abd edema at ED admission & BNP 8690), Thrombosis related to chronic non-anticoagulated Atrial Fibrillation history (03/25/1980 & 05/03/2011 EKG showed Afib.history but patient refusing anticoagulation beyond 81mg ASA). recent EEG - shows evidence of Metabolic Encephalopathy <Amaris Pinto NP - Last Filed: 09/10/20 18:54> (3) Weakness: Code(s): R53.1 - Weakness <Ling Howard RN - Last Filed: 09/10/20 10:20> Status: Acute <Ling Howard RN - Last Filed: 09/10/20 10:20> (4) Anxiety disorder, unspecified: Qualifiers: Anxiety disorder type: generalized anxiety disorder Qualified Code(s): F41.1 - Generalized anxiety disorder <Ling Howard RN - Last Filed: 09/10/20 10:20> Code(s): F41.9 - Anxiety disorder, unspecified <Ling Howard RN - Last Filed: 09/10/20 10:20> Status: Acute <Ling Howard RN - Last Filed: 09/10/20 10:20> (5) Essential (primary) hypertension: Code(s): I10 - Essential (primary) hypertension <GingerRissa Howard RN - Last Filed: 09/10/20 10:20> Status: Acute <GingerRissa Howard RN - Last Filed: 09/10/20 10:20> (6) Paroxysmal atrial fibrillation: Code(s): I48.0 - Paroxysmal atrial fibrillation <GingerRissa Howard RN - Last Filed: 09/10/20 10:20> Status: Acute <GingerRissa Howard RN - Last Filed: 09/10/20 10:20> (7) Type 2 diabetes mellitus without complications: Code(s): E11.9 - Type 2 diabetes mellitus without complications <GingerRissa Howard RN - Last Filed: 09/10/20 10:20> Status: Acute <Ling Howard RN - Last Filed: 09/10/20 10:20> (8) Nausea: Code(s): R11.0 - Nausea <GingerRissa Howard RN - Last Filed: 09/10/20 10:20> Status: Acute <GingerRissa Howard RN - Last Filed: 09/10/20 10:20> (9) Low back pain: Qualifiers: Back pain laterality: bilateral Chronicity: chronic Sciatica presence: without sciatica Qualified Code(s): M54.5 - Low back pain; G89.29 - Other chronic pain <Ling Howard RN - Last Filed: 09/10/20 10:20> Code(s): M54.5 - Low back pain <GingerRissa Howard RN - Last Filed: 09/10/20 10:20> Status: Acute <Ling Howard RN - Last Filed: 09/10/20 10:20> (10) Iron deficiency anemia due to chronic blood loss: Code(s): D50.0 - Iron deficiency anemia secondary to blood loss (chronic) <Ling Howard RN - Last Filed: 09/10/20 10:20> Status: Acute <Ling Howard RN - Last Filed: 09/10/20 10:20> (11) UTI (urinary tract infection): Code(s): N39.0 - Urinary tract infection, site not specified <Ling Howard RN - Last Filed: 09/10/20 10:20> Status: Acute <Ling Howard RN - Last Filed: 09/10/20 10:20>
--- NOTE | 2020-09-10 10:35 | PCOTNOTE ---
Attempted OT session with patient, but patient refused all exercises ADLs and transfers, stating she just wanted to go home.
--- NOTE | 2020-09-10 13:41 | PM.IMPN ---
Progress Note: A&P Assessment and Plan (1) Acute on chronic systolic (congestive) heart failure: Code(s): I50.23 - Acute on chronic systolic (congestive) heart failure Status: Acute Assessment and Plan: With acute respiratory failure with hypoxia after admitted to the floor; was placed on 2L O2 on 09/04; now weaned to RA. BLE edema remains 1-2+. encouraged IS Regino hose to be applied. CXR 09/03 showing evidence of CHF exacerbation; repeat CXR 09/08 shows similar, if not improved findings. Pneumonia on differential, although felt to be less likely as she is afebrile and is now on RA. Echo 09/04 shows EF of 35%, severe pulm hypertension, small pericardial effusion noted without evidence of tamponade. Similar EF cath findings in 2010. Followed Dr[address] Scott but stopped going to see her and does not wish to see her again. stop IV lasix yesterday, tried home HCTZ yesterday and today but it did not provide enough diruesis, changing to oral lasix tomorrow morning. Gave extra lasix dose today Monitor I/Os, daily weights Home O2 eval prior to discharge 2g Na diet, fluid restriction Monitor (2) Acute encephalopathy: Code(s): G93.40 - Encephalopathy, unspecified Status: Acute Assessment and Plan: Patient has had intermittent confusion during her hospital stay at beginning, then was more combative with nursing staff. She is now calmer, resting at time of my visit. Per CC who spoke with daughter, Carmela, patient is occasionally confused at home as well, although patient lives by herself so it is hard to tell how often she gets confused. Head CT was unremarkable for acute intracranial findings. CXR questionable for pneumonia, although likely respiratory issues are more related to CHF exacerbation. UA has been ordered. may improve as CHF improves and possible UTI treated. UA to be collected, urine culture ordered, then IV Rocephin to treat until CX results. Monitor closely (3) Weakness: Code(s): R53.1 - Weakness Status: Acute Assessment and Plan: Progressive weakness over the past several weeks. Possibly due to worsening CHF, but also deconditioning. Pt/OT Patient not agreeable to SNF/rehab at this moment; wishes to go home. Care Coordination following may improve as CHF improves and possible UTI treated. Monitor (4) Anxiety disorder, unspecified: Qualifiers: Anxiety disorder type: generalized anxiety disorder Qualified Code(s): F41.1 - Generalized anxiety disorder Code(s): F41.9 - Anxiety disorder, unspecified Status: Acute Assessment and Plan: No acute issues at this time Continue home medications (5) Essential (primary) hypertension: Code(s): I10 - Essential (primary) hypertension Status: Acute Assessment and Plan: BP 130s sys today. Continue coreg; increased to 6.25 mg Q12 given occasional tachycardia. Continue losartan Stop IV diuresis and switch to home PO HCTZ Monitor with further diuresis tomorrow. (6) Paroxysmal atrial fibrillation: Code(s): I48.0 - Paroxysmal atrial fibrillation Status: Acute Assessment and Plan: Sporadically tachycardic particularly when patient is active. Not on any anticoagulation partly due to past lower GI bleed, her significant fall risk due to confusion/dementia/encepholopathy/erratic behavior (per family report), and mainly because she adamantly refuses any anticoagulation. She is having intermittent episodes of Afib with HR 130s, then quickly and spontaneously resolves to NSR HR 70 - 80s. Continue coreg at this time; increased to 6.25 mg yesterday given occasional tachycardia She will likely need Outpatient referral to felt hat inspector and packer for further management. had continuous cardia
[2020-09-10] MEDS: FUROSEMIDE 20 MG TABLET PO (16:00)
[2020-09-10] MEDS: ALPRAZolam (*CRX) 0.5 MG TABLET PO (20:23)
[2020-09-11] VITALS: PULSE 81
[2020-09-11 04:00] VITALS: PULSE 81
[2020-09-11 06:22] LABS: Anion Gap 5 mmol/L (8-16); Blood Urea Nitrogen 19 mg/dL (7-17); Calcium 8.9 mg/dL (8.4-10.2); Carbon Dioxide 35 mmol/L (22-30); Chloride 99 mmol/L (98-107); Estimated CRCL calculation 46 ml/min; Estimated Glomerular Filt Rate > 60; Glucose 107 mg/dL (65-105); Sodium 139 mmol/L (137-145)
[2020-09-11 06:28] LABS: NT Pro B Type Natriuretic Pept 6580 PG/ML (5-100)
[2020-09-11 08:00] VITALS: BP 115/54; PULSE 105; PULSE 73; RESP 18; O2SAT 95
--- NOTE | 2020-09-11 08:27 | PM.DS ---
DS: Admitting Diagnosis Admitting Diagnosis Admitting Diagnosis: weakness DS: Discharge Diagnosis Discharge Diagnosis (1) Acute on chronic systolic (congestive) heart failure: Code(s): I50.23 - Acute on chronic systolic (congestive) heart failure Status: Acute Assessment and Plan: With acute respiratory failure with hypoxia after admitted to the floor; was placed on 2L O2 on 09/04; now weaned to RA. BLE edema resolved. encouraged IS Regino hose applied. CXR 09/03 showing evidence of CHF exacerbation; CXR 09/10 showed Bibasilar airspace opacities with slight improvement on the right. continues to be afebrile and on RA. Echo 09/04 shows EF of 35%, severe pulm hypertension, small pericardial effusion noted without evidence of tamponade. Similar EF cath findings in 2010. Followed Dr[address] Scott but stopped going to see her and does not wish to see her again. stop IV lasix yesterday, tried home HCTZ yesterday and today but it did not provide enough diruesis, changing to oral lasix tomorrow morning. discharged on lasix Monitor I/Os, daily weights patient resistant any changes in her lifestyle Monitor (2) Acute encephalopathy: Code(s): G93.40 - Encephalopathy, unspecified Status: Acute Assessment and Plan: Unable to Determine Type of Encephalopathy, as her Acute encephalopathy is most likely Multi-Factorial in nature/cause. Possible causes include: Metabolic = Dementia Toxic = possible UTI, Metabolic = CHF exacerbation (leg/abd edema at ED admission & BNP 8690), Thrombosis related to chronic non-anticoagulated Atrial Fibrillation history (03/25/1980 & 05/03/2011 EKG showed Afib.history but patient refusing anticoagulation beyond 81mg ASA). Patient has had intermittent confusion during her hospital stay at beginning, then was more combative with nursing staff. She is now calmer, resting at time of my visit. Per CC who spoke with daughter, Carmela, patient is occasionally confused at home as well, although patient lives by herself so it is hard to tell how often she gets confused. Head CT was unremarkable for acute intracranial findings. CXR questionable for pneumonia, although likely respiratory issues are more related to CHF exacerbation. improved as CHF improved and possible UTI treated. UA to be collected, urine culture pending, then IV Rocephin to treat until CX results, received at least 2 doses. Monitor closely (3) Weakness: Code(s): R53.1 - Weakness Status: Acute Assessment and Plan: most likely due to her poor EF, advancing age, dementia, and immobility with muscle loss/strength loss. Progressive weakness over the past several weeks. Possibly due to worsening CHF, but also deconditioning. Pt/OT Patient not agreeable to SNF/rehab at this moment; wishes to go home. Care Coordination following improved (4) Anxiety disorder, unspecified: Qualifiers: Anxiety disorder type: generalized anxiety disorder Qualified Code(s): F41.1 - Generalized anxiety disorder Code(s): F41.9 - Anxiety disorder, unspecified Status: Acute Assessment and Plan: No acute issues at this time continued home meds (5) Essential (primary) hypertension: Code(s): I10 - Essential (primary) hypertension Status: Acute Assessment and Plan: BP 130s sys today. Continue coreg; increased to 6.25 mg Q12 given occasional tachycardia. Continue losartan Stop IV diuresis, tried HCTZ diuresis, but urine output dropped significantly, went back to oral lasix diuresis, patient did well. Monitor with further diuresis tomorrow. (6) Paroxysmal atrial fibrillation: Code(s): I48.0 - Paroxysmal atrial fibrillation Status: Acute Assessment and Plan: Sporadically tachycardic particularly when patient is active. Not on any anticoagulation partly due to past lower GI bleed, her significant fall risk due to confusion/dementia/encepholopathy/erratic behavior (per family re
[2020-09-11] MEDS: ASPIRIN 81 MG ENTERIC TABLET PO (08:32)
[2020-09-11] MEDS: ESCITALOPRAM OXALATE 10 MG TABLET 20 MG PO (08:32)
[2020-09-11] MEDS: LOSARTAN POTASSIUM 100 MG TABLET PO (08:32)
[2020-09-11] MEDS: PANTOPRAZOLE 40 MG TABLET PO (08:32)
[2020-09-11] MEDS: POTASSIUM CHLORIDE 10 MEQ TABLET 40 MEQ PO (08:33)
[2020-09-11 08:36] VITALS: PULSE 73
[2020-09-11] MEDS: carvediloL 6.25 MG TABLET PO (08:36)
[2020-09-11] MEDS: FUROSEMIDE 20 MG TABLET PO (08:36)
--- NOTE | 2020-09-11 09:23 | PC.NURSE ---
Discharge instructions thoroughly explained to daughter Carmela. Verbalizes understanding. A second discharge packet was printed for her to have for reference.
--- NOTE | 2020-09-16 14:58 | PC.NURSE ---
Blood cx is negative.
== END 2020-09-11 10:10 | disposition home or self-care (01) | DRG 291 ==
LOC: ANHED 18:16 → ANH3MED 20:37
PROVIDERS: Family Medicine; Physician Assistant; Admitting Provider Internal Medicine; Emergency Provider Emergency Medicine; Visit Provider Nurse Practitioner
DX: I11.0 Hypertensive heart disease with heart failure (principal); J96.01 Acute respiratory failure with hypoxia; G93.41 Metabolic encephalopathy; N39.0 Urinary tract infection, site not specified; I50.23 Acute on chronic systolic (congestive) heart failure; Z20.828 Contact with and (suspected) exposure to other viral communicable diseases; E11.9 Type 2 diabetes mellitus without complications; I48.0 Paroxysmal atrial fibrillation; K21.9 Gastro-esophageal reflux disease without esophagitis; M54.5 Low back pain; D50.0 Iron deficiency anemia secondary to blood loss (chronic); G89.29 Other chronic pain; M17.0 Bilateral primary osteoarthritis of knee; I25.10 Atherosclerotic heart disease of native coronary artery without angina pectoris; F41.8 Other specified anxiety disorders; I42.9 Cardiomyopathy, unspecified; Z90.49 Acquired absence of other specified parts of digestive tract; Z90.710 Acquired absence of both cervix and uterus; Z66 Do not resuscitate
CPT/HCPCS: 36415; 70450; 71045; 71046; 80048; 80053; 81001; 82140; 83036; 83735; 83880; 84443; 84484; 85025; 85027; 85055; 85610; 85730; 87040; 87086; 87088; 87635; 93005; 93306; 93970; 96374; 96376; 97110; 97116; 97161; 97165; 97530; 97535; 99285; A9270; C9803; G0378; J0696; J1940; J2060; J3475; J3480; U0003

== ENCOUNTER 2020-09-12 11:13 | Outpatient (CLI) | payer MEDICARE, OTHER, SELFPAY ==
[2020-09-12 11:50] LABS: Basophils Absolute Auto 0.1 K/mm3 (0.0-0.1); Basophils Percent Auto 0.6 % (0.2-1.2); Eosinophils Absolute Auto 0.2 K/mm3 (0-0.3); Eosinophils Percent Auto 1.4 % (0-4.4); Hematocrit 37.8 % (37.0-47.0); Hemoglobin 12.1 g/dL (12.0-15.0); Immature Granulocyte Absolute 0.05 K/mm3 (0.00-0.031); Immature Granulocyte Percent A 0.4 % (0-0.5); Immature Platelet Fraction Pct 10.3 % (0.9-11.2); Lymphocytes Absolute Auto 1.74 K/mm3 (0.9-3.2); Lymphocytes Percent Auto 14.7 % (18.3-44.2); Mean Corpuscular Hemoglobin 26.4 pg (26-34); Mean Corpuscular Volume 82.4 fl (80-100); Mean Platelet Volume 13.2 fl (7.4-10.4); Monocytes Absolute Auto 0.9 K/mm3 (0.1-0.6); Monocytes Percent Auto 7.9 % (2.6-8.5); Neutrophils Absolute Auto 8.9 K/mm3 (1.3-6.7); Platelet Count Result 263 k/mm3 (150-375); Red Blood Count 4.59 M/mm3 (4.2-5.4); Red Cell Distribution Width 20.8 % (11.5-14.5); White Blood Count 11.8 K/mm3 (4.5-10.0)
[2020-09-12 11:58] LABS: Alanine Aminotransferase 15 U/L (4-35); Albumin Level 3.7 g/dL (3.5-5.1); Alkaline Phosphatase 83 U/L (38-126); Anion Gap 11 mmol/L (8-16); Aspartate Amino Transferase 25 U/L (14-36); Bilirubin,Total 1.4 mg/dL (0.2-1.3); Blood Urea Nitrogen 14 mg/dL (7-17); Calcium 9.4 mg/dL (8.4-10.2); Carbon Dioxide 29 mmol/L (22-30); Chloride 99 mmol/L (98-107); Estimated Glomerular Filt Rate > 60; Glucose 121 mg/dL (65-105); Potassium 3.5 mmol/L (3.4-5.0); Sodium 139 mmol/L (137-145)
[2020-09-12 12:07] LABS: NT Pro B Type Natriuretic Pept 7150 PG/ML (5-100)
== END 2020-09-12 11:14 | disposition home or self-care (01) ==
LOC: ANHLAB 11:17
PROVIDERS: Visit Provider Nurse Practitioner
DX: G93.40 Encephalopathy, unspecified (principal); I50.23 Acute on chronic systolic (congestive) heart failure; N39.0 Urinary tract infection, site not specified; R53.1 Weakness; R60.0 Localized edema
CPT/HCPCS: 36415; 80053; 83880; 85025; 85055

== ENCOUNTER → 2020-10-06 11:41 | Outpatient (CLI) | payer MEDICARE, OTHER, SELFPAY ==
--- NOTE | ~2020-10-06 | CT_ITS ---
EXAMINATION: CT abdomen pelvis wo con DATE: 10/06/2020 12:02 INDICATION: Chronic epigastric pain and nausea. Right flank pain. TECHNIQUE: Computed tomography (CT) of the abdomen and pelvis was performed without intravenous contr ast. The dose-length product was 382.12 mGy-cm. Automated exposure control and iterative reconstructi on technique were employed. COMPARISON: CT dated 03/02/2019 FINDINGS: There are bilateral pleural effusions, right greater than left. There is a small pericardia l effusion. There is rounded atelectasis in the left lower lobe. The left pleural effusion appears lo culated with pleural thickening. There is lingular consolidation. Cardiomegaly. There is atherosclero sis. There is atherosclerosis. There are cholecystectomy clips. The liver, spleen, pancreas, adrenal glands and kidneys are unremark able. There is a mildly enlarged 12 mm retrocrural lymph node. There is a broad-based ventral hernia containing nonobstructed bowel. Colonic diverticulosis without evidence for diverticulitis. No renal stones or hydronephrosis. There is a chronic T12 burst fracture. There is mild superior endplate comp ression deformity of L2. There is moderate lumbar spondylosis with scoliosis. IMPRESSION: 1. Bilateral pleural effusions, right greater than left. Left pleural effusion appears loculated with adjacent pleural thickening. 2: Rounded atelectasis left lower lobe. Lingular consolidation may represent pneumonia or atelectasis . 3: Small pericardial effusion. 4: Cardiomegaly. Reviewed, dictated and finalized at location A. [facility] SPECIALIST IMPRESSION: 1. Bilateral pleural effusions, right greater than left. Left pleural effusion appears loculated with adjacent pleural thickening. 2: Rounded atelectasis left lower lobe. Lingular consolidation may represent pn eumonia or atelectasis. 3: Small pericardial effusion. 4: Cardiomegaly.
== END ==
DX: R10.13 Epigastric pain (principal); G89.29 Other chronic pain; J90 Pleural effusion, not elsewhere classified; I51.7 Cardiomegaly; R91.8 Other nonspecific abnormal finding of lung field; I31.3 Pericardial effusion (noninflammatory)
CPT/HCPCS: 74176

== ENCOUNTER 2021-03-25 15:32 | Inpatient (IN) | payer MEDICARE, OTHER, SELFPAY ==
[2021-03-25] VITALS (26 sets, daily range): BP systolic 140–168; BP diastolic 65–106; PULSE 71–119; RESP 14–28; TEMP 36.5–36.8; O2SAT 95–100; BMI 26.2
--- NOTE | ~2021-03-25 | CT_ITS ---
EXAMINATION: CT brain wo con INDICATION: Head injury COMPARISON: 09/08/2020 TECHNIQUE: Standard unenhanced head CT. The dose-length product (DLP) was 605.33 mGy-cm. The mA was a djusted according to patient size. Iterative reconstruction technique was employed. FINDINGS: Motion artifacts slightly limits the examination. There is no acute intraparenchymal hemorr carley. No evidence of mass lesion. No evidence of acute infarction. There is moderate periventricular and subcortical hypodensity probably related to small vessel ischemic disease. There is moderate prom inence of the sulci and ventricles related to cerebral atrophy. Intracranial calcified cerebral ather osclerosis is noted. There are no extra-axial collections. There is no mass effect or midline shift. Changes in the globes are likely from ocular lens surgery. There is mild mucosal thickening of the pa ranasal sinuses. IMPRESSION: 1. No acute intracranial abnormality. 2. Age related findings. Reviewed, dictated and finalized at location A.
--- NOTE | ~2021-03-25 | XR_ITS ---
XR chest 2V 03/25/2021 16:21 Indication: Status post fall. Weakness. Procedure: 2 view chest Comparison: Comparison to multiple prior studies sequentially, with oldest reviewed study dated 03/28. Findings: Cardiomegaly. Bibasilar airspace disease. Small pleural effusions. No pneumothorax. There i s osteoarthritis of the shoulders. Impression: 1: Bibasilar airspace disease which may represent pneumonia, edema and/or atelectasis. 2: Small pleural effusions. Reviewed, dictated and finalized at location B. Impression: 1: Bibasilar airspace disease which may represent pneumonia, edema and/or atele ctasis. 2: Small pleural effusions.
--- NOTE | ~2021-03-25 | CT_ITS ---
EXAMINATION: CT cervical spine wo con DATE: 03/25/2021 16:14 INDICATION: Head injury TECHNIQUE: Computed tomography (CT) of the cervical spine was performed without intravenous contrast. The dose-length product (DLP) was 132.97 mGy-cm. Automated exposure control and iterative reconstruc tion technique were employed. COMPARISON: None FINDINGS: There are 2 mm of anterolisthesis of C3 on C4 and C4 on C5. No fracture is identified. The vertebral body heights are maintained. There is mild loss of intervertebral disc space height at C4-5 and C5-6. The odontoid is intact. There is severe multilevel facet and mild to moderate multilevel u ncovertebral joint osteoarthritis. There is levocurvature of the cervical spine. A partially imaged r ight pleural effusion is noted. IMPRESSION: 1. Mild to moderate cervical spondylosis. 2. Right pleural effusion. Reviewed, dictated and finalized at location A.
--- NOTE | 2021-03-25 15:39 | ECG_ITS ---
Measurements Intervals [place] Rate: 111 P: [place]: 0 QRS: 13 QRSD: 110 T: 238 QT: 356 QTc: 484 Interpretive Statements ATRIAL FIBRILLATION WITH RAPID VENTRICULAR RESPONSE VENTRICULAR PREMATURE COMPLEXES LOW QRS VOLTAGE IN PRECORDIAL LEADS CANNOT RULE OUT SEPTAL INFARCT, AGE INDETERMINATE BORDERLINE T WAVE ABNORMALITY- DIFFUSE LEADS BASELINE ARTIFACT- I, II, III, AVR, AVL, AVF, V1-V2 ABNORMAL ECG Electronically Signed On 03-25-2021 16:10:18 CDT by Juan Carvalho D.O.
[2021-03-25 16:09] LABS: Basophils Absolute Auto 0.1 K/mm3 (0.0-0.1); Basophils Percent Auto 0.5 % (0.2-1.2); Eosinophils Absolute Auto 0.2 K/mm3 (0-0.3); Eosinophils Percent Auto 1.7 % (0-4.4); Hematocrit 25.3 % (37.0-47.0); Hemoglobin 7.3 g/dL (12.0-15.0); Immature Granulocyte Absolute 0.05 K/mm3 (0.00-0.031); Immature Granulocyte Percent A 0.5 % (0-0.5); Lymphocytes Absolute Auto 0.81 K/mm3 (0.9-3.2); Lymphocytes Percent Auto 7.3 % (18.3-44.2); Mean Corpuscular HGB Conc 28.9 g/dl (32-36); Mean Corpuscular Hemoglobin 22.2 pg (26-34); Mean Corpuscular Volume 76.9 fl (80-100); Monocytes Absolute Auto 1.1 K/mm3 (0.1-0.6); Monocytes Percent Auto 9.6 % (2.6-8.5); Neutrophils Absolute Auto 8.9 K/mm3 (1.3-6.7); Neutrophils Percent Auto 80.4 % (45.5-73.1); Nucleated Red Blood Cells Perc 0.3 % (0.0-0.2); Platelet Count Result 226 k/mm3 (150-375); Red Blood Count 3.29 M/mm3 (4.2-5.4); Red Cell Distribution Width 19.2 % (11.5-14.5); White Blood Count 11.1 K/mm3 (4.5-10.0)
[2021-03-25] MEDS: SODIUM CHLORIDE 0.9% IV 1,000 ML 150 ML IV CONT (16:20)
[2021-03-25 16:23] LABS: Hypochromasia 1+ (NORMAL); Ovalocytes 1+ (NORMAL); Platelet Estimate Adequate (Adequate)
[2021-03-25 16:26] LABS: Add Urine Microscopic? YES; Appearance Urine Clear (Clear); Bacteria Urine Trace /hpf; Bilirubin Urine Negative (Negative); Blood Urine Negative (Negative); Color Urine Yellow (Yellow); Glucose Urine UA Negative (Negative); Hyaline Casts Urine 30-49 /lpf; Ketones Urine Negative (Negative); Leukocyte Esterase Ur Negative LEU/UL (Negative); Mucus Urine Rare /lpf; Nitrate Urine Negative (Negative); Protein Urine Negative (Negative); RBC Urine 0-2 /hpf (0-2); Specific Grav Ur 1.013 (1.001-1.035); Squamous Epithelial Cell Urine Rare /hpf (Few); WBC Urine 0-3 /hpf
[2021-03-25 16:30] LABS: Alanine Aminotransferase 41 U/L (4-35); Albumin Level 3.7 g/dL (3.5-5.1); Alkaline Phosphatase 70 U/L (38-126); Anion Gap 11 mmol/L (8-16); Aspartate Amino Transferase 73 U/L (14-36); Bilirubin,Total 1.5 mg/dL (0.2-1.3); Blood Urea Nitrogen 33 mg/dL (7-17); Calcium 9.5 mg/dL (8.4-10.2); Carbon Dioxide 28 mmol/L (22-30); Chloride 104 mmol/L (98-107); Estimated CRCL calculation 22 ml/min; Estimated Glomerular Filt Rate 36; Glucose 108 mg/dL (65-105); Sodium 143 mmol/L (137-145)
[2021-03-25 16:31] LABS: Creatine Kinase 104 U/L (30-135)
--- NOTE | 2021-03-25 17:00 | PC.NURSE ---
Assumed care of pt. at this time. Report from JOSE Person
--- NOTE | 2021-03-25 17:08 | ED.FALL ---
HPI - Fall General Chief Complaint: Fall Stated Complaint: FALL Time Seen by Provider: 03/25/21 16:03 Source: patient and EMS Mode of arrival: EMS Limitations: no limitations History of Present Illness HPI Narrative: 85-year-old with a history of atrial fibrillation, anxiety disorder was brought in from home with complaints of fall. Patient was found on the floor at her home. Patient states that she tripped on her bed and fell was extremely weak to get up. She denied any headache, neck pain. Denies any shortness of breath or chest pain. She states that she lives by herself and the family does not care for her. No history of any abdominal pain, blood in the stool or black-colored stool. complaint: fall Onset (ago): day(s) (1) Fall from: standing Fall witnessed: no Place fall occurred: home Loss of consciousness: none Prolonged down time: no Symptoms prior to fall: none Context: tripped/slipped Location of injury: head Severity: moderate Associated symptoms (after fall): denies Related Data Home Medications Medication Instructions Recorded Confirmed aspirin 81 mg tablet,delayed 81 mg PO DAILY 09/10/19 09/03/20 release Allergies Allergy/AdvReac Type Severity Reaction Status Date / Time duloxetine Allergy Severe ENTIRE Verified 09/03/20 19:51 BODY BECAME RED AND HOT W/ WEAKNESS, N/V meperidine AdvReac Unknown Confusion Verified 09/03/20 19:51 Review of Systems Review of Systems: All systems reviewed & are unremarkable except as noted in HPI and below Constitutional: Constitutional: Reports no additional constitutional complaints Eyes: Eyes: Reports no additional eye complaints ENT: Reports system reviewed and no additional complaints, except as documented Cardiovascular: Cardiovascular: Reports no additional cardiovascular complaints Respiratory: Respiratory: Reports no additional respiratory complaints Gastrointestinal: Gastrointestinal: Reports no additional gastrointestinal complaints Musculoskeletal: Musculoskeletal: Reports no additional musculoskeletal complaints Integumentary/Breasts: Skin/Breast: Reports system reviewed and no additional complaints, except as docu PMFSH Past Medical History Medical History Anxiety disorder, unspecified Bilateral primary osteoarthritis of knee Cardiomyopathy Cholelithiasis s/p cholecystectomy Essential (primary) hypertension History of GI bleed 03/2019 Iron deficiency anemia due to chronic blood loss Paroxysmal atrial fibrillation Type 2 diabetes mellitus without complications Surgical History Surgical History History of appendectomy History of back surgery History of cholecystectomy History of hysterectomy History of knee surgery Family History Family History Mother Family history of lung cancer Hypertension Sibling Family history of diabetes mellitus in first degree relative Family history of malignant neoplasm of breast in first degree relative Grandparent Diabetes mellitus Acute myocardial infarction Other Carcinoma of colon Family history of malignant neoplasm of breast Social History Social History (Updated 09/04/20 @ 10:23 by Awais Sanchez PA-C) Social History: Patient lives at home alone with daughter occasionally checking in. Wishes her Daughter to be surrogate MDM. She wishes to be DNR. Her PCP is Dr. Galeas Smoking status: Never smoker Second hand tobacco smoke exposure: No Alcohol intake: never Substance use: never Gender identity (if verbalized by the patient): Female Spiritual care concerns: No Exam Narrative: Exam Narrative: GENERAL: Well-appearing, well-nourished, and in no acute distress. HEAD: Normocephalic, atraumatic. EYES: PERRLA and EOMI.. NECK: Supple. CHEST: Clear to auscultation. No respirator
--- NOTE | 2021-03-25 18:50 | ADMGEN ---
This patient, Nelda Roman, was admitted to 2 Medical Room 259-01. Patient/family oriented to hospital policies and general routines including ID bracelet, bed and alarms, visiting hours, pain management, procedures, bathroom and other care routines, personal items, smoking policy, room service/diet, and visiting hours. Information on how to activate the Rapid Response Team has been discussed. Patient/Family are encouraged to report perceived risks to care and to ask questions if they do not understand what they are told or what they should do.
[2021-03-25] MEDS: SODIUM CHLORIDE 0.9% IV 1,000 ML 125 ML IV CONT (20:19)
--- NOTE | 2021-03-25 21:27 | PC.NURSE ---
This patient, Nelda Roman, was admitted to 2 Medical Room 259-01. Patient/family oriented to hospital policies and general routines including ID bracelet, bed and alarms, visiting hours, pain management, procedures, bathroom and other care routines, personal items, smoking policy, room service/diet, and visiting hours. Information on how to activate the Rapid Response Team has been discussed. Patient/Family are encouraged to report perceived risks to care and to ask questions if they do not understand what they are told or what they should do. Have attempted to call daughter and call has not been returned, pt is poor historian.
--- NOTE | 2021-03-25 22:04 | PM.IMHP ---
H&P: HPI History of Present Illness Date/Time: 03/25/21 22:04 this is a 85-year-old female patient who has a history of atrial fibrillation, congestive heart failure, anxiety disorder, and anemia. The patient lives home alone. She was brought to the emergency room because she tripped over her bed and fell due to extreme weakness. She was unable to get up. She denied any headache. She denied any shortness of breath. She states that she lives home alone and does not get any help. The patient is just grunting and moaning when I ask her question she is not answering my questions at this time. Patient's head CT was read as no acute intracranial abnormality. Age-related findings. Cervical spine was read as mild to moderate cervical spondylosis. Right pleural effusion. May represent pneumonia, edema and/or atelectasis. Small pleural effusion. The patient was given a aspirin in the emergency room. Her H&H is 7.3 And 25.3 compared to her levels 6 months ago. H&H was 12.1 and 37.8. Creatinine is 1.4. Glucose 108. Creatinine kinase is 104. The patient was found have multiple bruises on her arms and legs. The patient is being admitted to inpatient services on the date of service of 03/25/2021. Chief Complaint: Multiple falls Review of Systems Review of Systems: All systems reviewed & are unremarkable except as noted in HPI and below Constitutional: Constitutional: Reports as per HPI and Reports no additional constitutional complaints Eyes: Eyes: Reports as per HPI and Reports no additional eye complaints ENT: Reports system reviewed and no additional complaints, except as documented and Reports Normal hearing present Cardiovascular: Cardiovascular: Reports no additional cardiovascular complaints Respiratory: Respiratory: Reports no additional respiratory complaints and Reports no additional respiratory complaints Gastrointestinal: Gastrointestinal: Reports as per HPI and Reports no additional gastrointestinal complaints Musculoskeletal: Musculoskeletal: Reports no additional musculoskeletal complaints Integumentary/Breasts: Skin/Breast: Reports system reviewed and no additional complaints, except as docu and Reports as per HPI Neurologic: Reports system reviewed and no additional complaints, except as documented, Reports as per HPI and Reports Normal hearing present Psychiatric: Psychiatric: Reports no additional psychiatric complaints and Reports as per HPI Endocrine: Endocrine: Reports no additional endocrine complaints Hematologic/Lymphatic: Hematologic/Lymphatic: Reports no additional hematologic/lymphatic complaints Allergic/Immunologic: Allergic/Immunologic: Reports no additional allergic/immunologic complaints [facility] Past Medical History Medical History (Updated 03/25/21 @ 22:23 by Lora Humphrey NP) Anxiety disorder, unspecified Bilateral primary osteoarthritis of knee Cardiomyopathy Cholelithiasis s/p cholecystectomy Congestive heart failure Essential (primary) hypertension History of GI bleed 03/2019 Iron deficiency anemia due to chronic blood loss Paroxysmal atrial fibrillation Type 2 diabetes mellitus without complications Surgical History Surgical History History of appendectomy History of back surgery History of cholecystectomy History of hysterectomy History of knee surgery Family History Family History Mother Family history of lung cancer Hypertension Sibling Family history of diabetes mellitus in first degree relative Family history of malignant neoplasm of breast in first degree relative Grandparent Diabetes mellitus Acute myocardial infarction Other Carcinoma of colon Family history of malignant neoplasm of breast Social History Social History (Updated 03/25/21 @ 22:14 by Lora Humphrey NP) Social History: Patient lives at home alone with daughter occasionally check
[2021-03-25 22:21] LABS: Hemoglobin A1C 5.7 % (<5.7)
[2021-03-26] VITALS (13 sets, daily range): BP systolic 137–154; BP diastolic 55–82; PULSE 67–95; RESP 16–20; TEMP 36.2–36.7; O2SAT 94–100; BMI 26.2
[2021-03-26] MEDS: SODIUM CHLORIDE 0.9% IV 1,000 ML 100 ML IV CONT ×2 (05:29→15:08)
[2021-03-26 05:45] LABS: Basophils Absolute Auto 0.1 K/mm3 (0.0-0.1); Basophils Percent Auto 0.6 % (0.2-1.2); Eosinophils Absolute Auto 0.3 K/mm3 (0-0.3); Eosinophils Percent Auto 3.2 % (0-4.4); Hematocrit 25.2 % (37.0-47.0); Hemoglobin 7.4 g/dL (12.0-15.0); Immature Granulocyte Absolute 0.06 K/mm3 (0.00-0.031); Immature Granulocyte Percent A 0.6 % (0-0.5); Immature Platelet Fraction Pct 13.9 % (0.9-11.2); Lymphocytes Absolute Auto 1.28 K/mm3 (0.9-3.2); Mean Corpuscular HGB Conc 29.4 g/dl (32-36); Mean Corpuscular Hemoglobin 22.4 pg (26-34); Mean Corpuscular Volume 76.4 fl (80-100); Monocytes Absolute Auto 0.9 K/mm3 (0.1-0.6); Monocytes Percent Auto 9.3 % (2.6-8.5); Neutrophils Absolute Auto 7.2 K/mm3 (1.3-6.7); Neutrophils Percent Auto 73.3 % (45.5-73.1); Nucleated Red Blood Cells Perc 0.2 % (0.0-0.2); Platelet Count Result 184 k/mm3 (150-375); Red Cell Distribution Width 19.4 % (11.5-14.5); White Blood Count 9.9 K/mm3 (4.5-10.0)
[2021-03-26 05:55] LABS: Anion Gap 9 mmol/L (8-16); Blood Urea Nitrogen 27 mg/dL (7-17); Carbon Dioxide 25 mmol/L (22-30); Chloride 110 mmol/L (98-107); Creatine Kinase 50 U/L (30-135); Estimated CRCL calculation 26 ml/min; Estimated Glomerular Filt Rate 43; Glucose 84 mg/dL (65-105); Potassium 3.9 mmol/L (3.4-5.0); Sodium 144 mmol/L (137-145)
[2021-03-26] MEDS: MICONAZOLE NITRATE 2% CREAM 30 GM TUBE 1 APPLIC TOPICAL ×2 (07:50→20:14)
[2021-03-26] MEDS: PANTOPRAZOLE SODIUM IV 40 MG VIAL IV PUSH ×2 (07:50→20:14)
[2021-03-26] MEDS: FUROSEMIDE INJ 40 MG/4 ML VIAL 20 MG IV PUSH (07:50)
[2021-03-26 08:13] LABS: Alanine Aminotransferase 37 U/L (4-35); Albumin Level 3.2 g/dL (3.5-5.1); Alkaline Phosphatase 65 U/L (38-126); Aspartate Amino Transferase 50 U/L (14-36); Bilirubin,Total 0.9 mg/dL (0.2-1.3)
[2021-03-26 08:26] LABS: NT Pro B Type Natriuretic Pept 13300 pg/mL (5-100)
[2021-03-26 08:52] LABS: Glucose Point of Care 110 mg/dl (65-105)
[2021-03-26 12:08] LABS: Glucose Point of Care 109 mg/dl (65-105)
[2021-03-26] MEDS: TOLNAFTATE 1% POWDER 45 GM BTL 1 APPLIC TOPICAL ×2 (12:08→20:14)
--- NOTE | 2021-03-26 14:25 | WPDGICN ---
Assessment and Plan Assessment and plan (1) Anemia: Qualifiers: Anemia type: iron deficiency Iron deficiency anemia type: unspecified iron deficiency Qualified Code(s): D50.9 - Iron deficiency anemia, unspecified Code(s): D64.9 - Anemia, unspecified Status: Acute Assessment and Plan: this is a microcytic anemia and therefore probably due to chronic blood loss. I would check iron levels. She will be scheduled for EGD and colonoscopy to be done tomorrow I discussed the procedures and prepped with her including the possibilities of bleeding or perforation do the procedures well as the possibility of cardiopulmonary complications (2) Paroxysmal atrial fibrillation: Code(s): I48.0 - Paroxysmal atrial fibrillation Status: Acute Assessment and Plan: she is on aspirin which I will hold (3) Multiple falls: Code(s): R29.6 - Repeated falls Status: Acute Assessment and Plan: these falls may be due at least in part to the fact that she is so anemic GI Consult Note Consult date/time: 03/26/21 14:25 HPI: Nelda Roman is a 85 year old female Who was admitted primarily because she had fallen. She has history of atrial fibrillation for which she is on aspirin. In the emergency room she was found to be anemic, with a hemoglobin of 7.4. She states that she had a colonoscopy a few years ago that was unremarkable. She denies seeing blood in her stools or having black tarry stools. She denies nausea vomiting severe heartburn dysphagia loss of appetite or weight loss. There is no history of liver disease or jaundice. There is a family history of colon cancer Review of Systems Review of Systems: All systems reviewed & are unremarkable except as noted in HPI and below PMFSH Past Medical History Medical History Anxiety disorder, unspecified Bilateral primary osteoarthritis of knee Cardiomyopathy Cholelithiasis s/p cholecystectomy Congestive heart failure Essential (primary) hypertension History of GI bleed 03/2019 Iron deficiency anemia due to chronic blood loss Paroxysmal atrial fibrillation Type 2 diabetes mellitus without complications Surgical History Surgical History History of appendectomy History of back surgery History of cholecystectomy History of hysterectomy History of knee surgery Family History Family History Mother Family history of lung cancer Hypertension Sibling Family history of diabetes mellitus in first degree relative Family history of malignant neoplasm of breast in first degree relative Grandparent Diabetes mellitus Acute myocardial infarction Other Carcinoma of colon Family history of malignant neoplasm of breast Social History Social History Social History: Patient lives at home alone with daughter occasionally checking in. Wishes her Daughter to be surrogate MDM. She wishes to be DNR. Smoking status: Never smoker Second hand tobacco smoke exposure: No Alcohol intake: never Substance use: never Gender identity (if verbalized by the patient): Female Spiritual care concerns: No Meds Home Medications and Allergies Home Medications Medication Instructions Recorded Confirmed Type pantoprazole 40 mg tablet,delayed 40 mg PO QAM #90 tablet 03/05/20 03/25/21 Rx release carvedilol [Coreg] 6.25 mg PO Q12HR 90 Days #180 09/11/20 03/25/21 Rx tablet furosemide 20 mg PO DAILY 30 Days #30 tablet 09/11/20 03/25/21 Rx losartan 100 mg PO DAILY 30 Days #30 tablet 09/11/20 03/25/21 Rx magnesium oxide 400 mg PO BID #60 tablet 09/11/20 03/25/21 Rx escitalopram oxalate 20 mg tablet 20 mg PO DAILY #90 tablet 09/15/20 03/25/21 Rx alprazolam 1 mg PO QPM PRN 03/25/21 03/25/21 History potassium
[2021-03-26] MEDS: BISACODYL 5 MG TABLET EC 10 MG PO (14:34)
[2021-03-26] MEDS: polyethylene glycoL 3350 238 GM BOTTLE PO (14:34)
--- NOTE | 2021-03-26 16:20 | P.PNIM_ITS ---
Progress Note: A&P Assessment and Plan (1) Multiple falls: Code(s): R29.6 - Repeated falls Status: Acute Assessment and Plan: * The patient has bruises on her arms and legs. * I did a post acute care nurse practitioner consult for possible placement. * The patient had fallen in laid on the floor. * Will continue with IV fluids * creatinine today is 1.20 * Gently hydrate. * PT and OT for weakness. * Gatorade for hydration (2) JOANN (acute kidney injury): Code(s): N17.9 - Acute kidney failure, unspecified Status: Acute Assessment and Plan: * Continue to hydrate. * But gently hydrate if she has an EF of 35% (3) Anemia: Qualifiers: Anemia type: iron deficiency Iron deficiency anemia type: unspecified iron deficiency Qualified Code(s): D50.9 - Iron deficiency anemia, unspecified Code(s): D64.9 - Anemia, unspecified Status: Acute Assessment and Plan: * To check H&H every 6 hours. * The patient looks like she has been on naproxen and aspirin so will hold those. * Current H/H is 7.4/25.2 * GI consulted thank you for recommendations * EGD and Colonoscopy tomorrow (4) Acute encephalopathy: Code(s): G93.40 - Encephalopathy, unspecified Status: Acute Assessment and Plan: * May be related to dehydration, medication, or anemia. * CT of the brain was negative. * This problem is resolved patinet seems to be A&O x 3 she does know some places . (5) Weakness: Code(s): R53.1 - Weakness Status: Acute Assessment and Plan: * PT and OT evaluation. * Patient is negative for UTI this time. * Patient most likely needs to be placed in a long-term facility. * drainage design coordinator has been consulted. (6) Anxiety disorder, unspecified: Qualifiers: Anxiety disorder type: generalized anxiety disorder Qualified Code(s): F41.1 - Generalized anxiety disorder Code(s): F41.9 - Anxiety disorder, unspecified Status: Acute Assessment and Plan: * Continue with home medications. (7) Congestive heart failure: Code(s): I50.9 - Heart failure, unspecified Status: Chronic Assessment and Plan: * Last echo 09/04/2020 1. Left ventricular chamber dimension is mildly enlarged. 2. Left ventricular systolic function is moderately reduced, estimated at 35%. 3. Left atrial chamber dimension is moderately enlarged. 4. Right atrial chamber dimension is severely enlarged. 5. There is no aortic valve stenosis. 6. There is mild to moderate mitral valve regurgitation. 7. There is mild tricuspid valve regurgitation. 8. Severe pulmonary hypertension, estimated pulmonary arterial systolic pressure is 68 mmHg. 9. There is small pericardial effusion without tamponade physiology. Left pleural effusion noted. Resume medications when able. Hold Lasix and losartan at this time. May continue Coreg. I am still waiting for her medications to be reconciled. Subjective Date/time seen: 03/26/21 15:50 Interval history: this is a 85-year-old female patient who has a history of atrial fibrillation, congestive heart failure, anxiety disorder, and anemia. The patient lives home alone. She was brought to the emergency room because she tripped over her bed and fell due to extreme weakness. When I went into assess her she is really full of jokes. She told me that she was ok till I walked in then laughed. She den
--- NOTE | 2021-03-26 16:20 | PM.IMPN ---
Progress Note: A&P Assessment and Plan (1) Multiple falls: Code(s): R29.6 - Repeated falls Status: Acute Assessment and Plan: The patient has bruises on her arms and legs. I did a in home caregiver consult for possible placement. The patient had fallen in laid on the floor. Will continue with IV fluids creatinine today is 1.20 Gently hydrate. PT and OT for weakness. Gatorade for hydration (2) JOANN (acute kidney injury): Code(s): N17.9 - Acute kidney failure, unspecified Status: Acute Assessment and Plan: Continue to hydrate. But gently hydrate if she has an EF of 35% (3) Anemia: Qualifiers: Anemia type: iron deficiency Iron deficiency anemia type: unspecified iron deficiency Qualified Code(s): D50.9 - Iron deficiency anemia, unspecified Code(s): D64.9 - Anemia, unspecified Status: Acute Assessment and Plan: To check H&H every 6 hours. The patient looks like she has been on naproxen and aspirin so will hold those. Current H/H is 7.4/25.2 GI consulted thank you for recommendations EGD and Colonoscopy tomorrow (4) Acute encephalopathy: Code(s): G93.40 - Encephalopathy, unspecified Status: Acute Assessment and Plan: May be related to dehydration, medication, or anemia. CT of the brain was negative. This problem is resolved patinet seems to be A&O x 3 she does know some places . (5) Weakness: Code(s): R53.1 - Weakness Status: Acute Assessment and Plan: PT and OT evaluation. Patient is negative for UTI this time. Patient most likely needs to be placed in a long-term facility. planning coordinator has been consulted. (6) Anxiety disorder, unspecified: Qualifiers: Anxiety disorder type: generalized anxiety disorder Qualified Code(s): F41.1 - Generalized anxiety disorder Code(s): F41.9 - Anxiety disorder, unspecified Status: Acute Assessment and Plan: Continue with home medications. (7) Congestive heart failure: Code(s): I50.9 - Heart failure, unspecified Status: Chronic Assessment and Plan: Last echo 09/04/2020 1. Left ventricular chamber dimension is mildly enlarged. 2. Left ventricular systolic function is moderately reduced, estimated at 35%. 3. Left atrial chamber dimension is moderately enlarged. 4. Right atrial chamber dimension is severely enlarged. 5. There is no aortic valve stenosis. 6. There is mild to moderate mitral valve regurgitation. 7. There is mild tricuspid valve regurgitation. 8. Severe pulmonary hypertension, estimated pulmonary arterial systolic pressure is 68 mmHg. 9. There is small pericardial effusion without tamponade physiology. Left pleural effusion noted. Resume medications when able. Hold Lasix and losartan at this time. May continue Coreg. I am still waiting for her medications to be reconciled. Subjective Date/time seen: 03/26/21 15:50 Interval history: this is a 85-year-old female patient who has a history of atrial fibrillation, congestive heart failure, anxiety disorder, and anemia. The patient lives home alone. She was brought to the emergency room because she tripped over her bed and fell due to extreme weakness. When I went into assess her she is really full of jokes. She told me that she was ok till I walked in then laughed. She denies having any problems at current time. She is going to have a colonoscopy and EGD tomorrow to find out if she is bleeding. She is also a hospice patient, and is able to have these procedures while being a hospice patient. Her labs were ok today will repeat tomorrow. Exam Const: General: cooperative, comfortable, no acute distress, well developed, alert, awake, Physically active, ill appearing and tired appearing Nutritional Appearance: thin Orientation/consciousness: oriented to per
[2021-03-26 17:25] LABS: Glucose Point of Care 153 mg/dl (65-105)
--- NOTE | 2021-03-26 19:58 | PC.NURSE ---
Pt started the cnc machinist 2nd shift by saying she would not drink anymore bowel prep. I explained the reason behind the bowel prep and the scopes that would be occurring in the morning and the limitations of the procedure if the pt was not fully clear. I explained the iv meds prescribed and the use of prn zofran to help with heartburn and nausea. I also explained that if the pt is not in compliance with the prep than the doctor would have to be notified. Pt stated she would try to drink more bowel prep. I will continue to monitor and encourage the pt.
[2021-03-26 20:13] LABS: Immunochemical Fecal Occult Bl Positive (N)
[2021-03-26 20:14] LABS: IFOB Positive Control Positive
[2021-03-27] VITALS (18 sets, daily range): BP systolic 115–143; BP diastolic 49–82; PULSE 66–93; RESP 14–27; TEMP 36.1–36.9; O2SAT 92–100
[2021-03-27] MEDS: ONDANSETRON INJ 4 MG/2 ML VIAL IV PUSH (00:25)
[2021-03-27 00:37] LABS: Glucose Point of Care 140 mg/dl (65-105)
[2021-03-27] MEDS: SODIUM CHLORIDE 0.9% IV 1,000 ML 100 ML IV CONT ×2 (01:45→20:11)
--- NOTE | 2021-03-27 05:18 | PC.NURSE ---
Pt getting more confused throughout hourly shift. Pt forgot how she got to the hospital and confused as to how long she has been here. Pt started calling unknown people around 0430 and stating the phone didn't work because there was no answer. She has been upset about the bowel prep and refused the last bottle of gatorade/miralax combo. Pt BMs look clear. Pt has not sleep all hourly shift.
[2021-03-27 06:00] LABS: Basophils Percent Auto 0.5 % (0.2-1.2); Eosinophils Absolute Auto 0.4 K/mm3 (0-0.3); Eosinophils Percent Auto 5.4 % (0-4.4); Hematocrit 24.6 % (37.0-47.0); Immature Granulocyte Absolute 0.09 K/mm3 (0.00-0.031); Immature Granulocyte Percent A 1.1 % (0-0.5); Immature Platelet Fraction Pct 12.1 % (0.9-11.2); Lymphocytes Absolute Auto 1.14 K/mm3 (0.9-3.2); Lymphocytes Percent Auto 14.1 % (18.3-44.2); Mean Corpuscular HGB Conc 28.5 g/dl (32-36); Mean Corpuscular Hemoglobin 22.1 pg (26-34); Mean Corpuscular Volume 77.6 fl (80-100); Monocytes Absolute Auto 0.9 K/mm3 (0.1-0.6); Neutrophils Absolute Auto 5.5 K/mm3 (1.3-6.7); Neutrophils Percent Auto 67.9 % (45.5-73.1); Nucleated Red Blood Cells Perc 0.4 % (0.0-0.2); Platelet Count Result 160 k/mm3 (150-375); Red Blood Count 3.17 M/mm3 (4.2-5.4); Red Cell Distribution Width 19.6 % (11.5-14.5); White Blood Count 8.1 K/mm3 (4.5-10.0)
[2021-03-27 07:04] LABS: Alanine Aminotransferase 32 U/L (4-35); Alkaline Phosphatase 66 U/L (38-126); Anion Gap 8 mmol/L (8-16); Aspartate Amino Transferase 31 U/L (14-36); Bilirubin,Total 0.6 mg/dL (0.2-1.3); Blood Urea Nitrogen 20 mg/dL (7-17); Calcium 8.6 mg/dL (8.4-10.2); Carbon Dioxide 25 mmol/L (22-30); Chloride 109 mmol/L (98-107); Estimated CRCL calculation 34 ml/min; Estimated Glomerular Filt Rate 60; Glucose 104 mg/dL (65-105); Sodium 142 mmol/L (137-145)
[2021-03-27 07:14] LABS: Platelet Estimate Adequate (Adequate)
[2021-03-27 07:15] LABS: Anisocytosis 2+ (NORMAL); Hypochromasia 3+ (NORMAL)
[2021-03-27 07:16] LABS: Ovalocytes 1+ (NORMAL)
--- NOTE | 2021-03-27 08:23 | P.PNIM_ITS ---
Progress Note: A&P Assessment and Plan (1) Anemia: Qualifiers: Anemia type: iron deficiency Iron deficiency anemia type: unspecified iron deficiency Qualified Code(s): D50.9 - Iron deficiency anemia, unspecified Code(s): D64.9 - Anemia, unspecified Status: Acute Assessment and Plan: * To check H&H every 6 hours. * The patient looks like she has been on naproxen and aspirin so will hold those. * Current H/H is 04/25.6 * GI consulted thank you for recommendations * EGD and Colonoscopy today * One unit of PRBC transfused today (03/27/21) * Recheck H/H after transfusion * Getting anemia labs * Trend labs * Labs in the am * Consider adding iron or B12 if low. * Occult blood was positive (2) Multiple falls: Code(s): R29.6 - Repeated falls Status: Acute Assessment and Plan: * The patient has bruises on her arms and legs. * I did a home health aide caregiver consult for possible placement. * The patient had fallen in laid on the floor. * Will continue with IV fluids * creatinine today is 0.9 * Gently hydrate. * PT and OT for weakness. * Gatorade for hydration (3) JOANN (acute kidney injury): Code(s): N17.9 - Acute kidney failure, unspecified Status: Acute Assessment and Plan: * Continue to hydrate. * But gently hydrate if she has an EF of 35% * Creatinine is down to baseline at 0.90. * Trend labs * labs in the am (4) Acute encephalopathy: Code(s): G93.40 - Encephalopathy, unspecified Status: Acute Assessment and Plan: * May be related to dehydration, medication, or anemia. * CT of the brain was negative. * This problem is resolved patient seems to be A&O x 3 she does know some places . (5) Weakness: Code(s): R53.1 - Weakness Status: Acute Assessment and Plan: * PT and OT evaluation. * Patient is negative for UTI this time. * Patient most likely needs to be placed in a long-term facility. * substance addiction coordinator has been consulted. (6) Anxiety disorder, unspecified: Qualifiers: Anxiety disorder type: generalized anxiety disorder Qualified Code(s): F41.1 - Generalized anxiety disorder Code(s): F41.9 - Anxiety disorder, unspecified Status: Acute Assessment and Plan: * Continue home medications alrazolam 1mg PO bedtime PRN, escitalopram 20mg PO daaily (7) Congestive heart failure: Qualifiers: Heart failure chronicity: chronic Heart failure type: combined systolic and diastolic Qualified Code(s): I50.42 - Chronic combined systolic (congestive) and diastolic (congestive) heart failure Code(s): I50.9 - Heart failure, unspecified Status: Chronic Assessment and Plan: * Last echo 09/04/2020 * EF moderately reduced at 35%, atrium enlarged * 2+ pitting edema BLE * Lasix resumed 20mg IV daily * Hold coreg 6.25mg PO Q12, losartan 100mg PO daily (8) Hypokalemia: Code(s): E87.6 - Hypokalemia Status: Acute Assessment and Plan: * Potassium today 3.0 * Replaced with 40mg IV, recheck one hour after infusion * Trend potassium * Labs in the am (9) Chronic respiratory failure with hypoxia: Code(s): J96.11 - Chronic respiratory failure with hypoxia Status: Acute Assessment and Plan: * Patient on home O2
--- NOTE | 2021-03-27 08:23 | PM.IMPN ---
Progress Note: A&P Assessment and Plan (1) Anemia: Qualifiers: Anemia type: iron deficiency Iron deficiency anemia type: unspecified iron deficiency Qualified Code(s): D50.9 - Iron deficiency anemia, unspecified Code(s): D64.9 - Anemia, unspecified Status: Acute Assessment and Plan: To check H&H every 6 hours. The patient looks like she has been on naproxen and aspirin so will hold those. Current H/H is 04/25.6 GI consulted thank you for recommendations EGD and Colonoscopy today One unit of PRBC transfused today (03/27/21) Recheck H/H after transfusion Getting anemia labs Trend labs Labs in the am Consider adding iron or B12 if low. Occult blood was positive (2) Multiple falls: Code(s): R29.6 - Repeated falls Status: Acute Assessment and Plan: The patient has bruises on her arms and legs. I did a patient care specialist consult for possible placement. The patient had fallen in laid on the floor. Will continue with IV fluids creatinine today is 0.9 Gently hydrate. PT and OT for weakness. Gatorade for hydration (3) JOANN (acute kidney injury): Code(s): N17.9 - Acute kidney failure, unspecified Status: Acute Assessment and Plan: Continue to hydrate. But gently hydrate if she has an EF of 35% Creatinine is down to baseline at 0.90. Trend labs labs in the am (4) Acute encephalopathy: Code(s): G93.40 - Encephalopathy, unspecified Status: Acute Assessment and Plan: May be related to dehydration, medication, or anemia. CT of the brain was negative. This problem is resolved patient seems to be A&O x 3 she does know some places . (5) Weakness: Code(s): R53.1 - Weakness Status: Acute Assessment and Plan: PT and OT evaluation. Patient is negative for UTI this time. Patient most likely needs to be placed in a long-term facility. grievance and appeals coordinator has been consulted. (6) Anxiety disorder, unspecified: Qualifiers: Anxiety disorder type: generalized anxiety disorder Qualified Code(s): F41.1 - Generalized anxiety disorder Code(s): F41.9 - Anxiety disorder, unspecified Status: Acute Assessment and Plan: Continue home medications alrazolam 1mg PO bedtime PRN, escitalopram 20mg PO daaily (7) Congestive heart failure: Qualifiers: Heart failure chronicity: chronic Heart failure type: combined systolic and diastolic Qualified Code(s): I50.42 - Chronic combined systolic (congestive) and diastolic (congestive) heart failure Code(s): I50.9 - Heart failure, unspecified Status: Chronic Assessment and Plan: Last echo 09/04/2020 EF moderately reduced at 35%, atrium enlarged 2+ pitting edema BLE Lasix resumed 20mg IV daily Hold coreg 6.25mg PO Q12, losartan 100mg PO daily (8) Hypokalemia: Code(s): E87.6 - Hypokalemia Status: Acute Assessment and Plan: Potassium today 3.0 Replaced with 40mg IV, recheck one hour after infusion Trend potassium Labs in the am (9) Chronic respiratory failure with hypoxia: Code(s): J96.11 - Chronic respiratory failure with hypoxia Status: Acute Assessment and Plan: Patient on home O2 at 2L Saturation 92-100% at this time on 2LNC Trend saturations Wean O2 to keep SPO2 >92% Time Spent With Patient Time with patient: Greater than 35 minutes Subjective Date/time seen: 03/27/21 08:00 Interval history: this is a 85-year-old female patient who has a history of atrial fibrillation, congestive heart failure, anxiety disorder, and anemia who presented to the ED for evaluation after a fall. The patient lives home alone. Today patietn seems to be more lethargic and stated that she is just really tired. She denies pain, chest pain, shortness of breath, abdominal pain,
--- NOTE | 2021-03-27 08:29 | WPDANESEPPF ---
Anes - Initial Pre Proc Eval Procedure: Operation Date: 03/27/21 11:00 Proposed Procedures p Esophagogastroduodenoscopy & Colonoscopy - Kip Baum MD Date/Time: 03/27/21 08:29 Surgeon: Carla John MD Pre Op Diagnosis: Mutiple falls, JOANN, Anemia Patient Data Age: 85 Gender: F Height: 1.6 m Weight: 67.1 kg Last Vital Signs Temp 36.6 C 03/27/21 06:59 Pulse 78 03/27/21 06:59 Resp 14 03/27/21 06:59 BP 121/58 L 03/27/21 06:59 Pulse Ox 100 03/27/21 06:59 Allergies Allergy/AdvReac Type Severity Reaction Status Date / Time duloxetine Allergy Severe ENTIRE Verified 03/27/21 09:46 BODY BECAME RED AND HOT W/ WEAKNESS, N/V meperidine AdvReac Unknown Confusion Verified 03/27/21 09:46 Home Medications Medication Instructions Recorded Confirmed Type pantoprazole 40 mg tablet,delayed 40 mg PO QAM #90 tablet 03/05/20 03/27/21 Rx release carvedilol [Coreg] 6.25 mg PO Q12HR 90 Days #180 09/11/20 03/27/21 Rx tablet furosemide 20 mg PO DAILY 30 Days #30 tablet 09/11/20 03/27/21 Rx losartan 100 mg PO DAILY 30 Days #30 tablet 09/11/20 03/27/21 Rx magnesium oxide 400 mg PO BID #60 tablet 09/11/20 03/27/21 Rx escitalopram oxalate 20 mg tablet 20 mg PO DAILY #90 tablet 09/15/20 03/27/21 Rx alprazolam 1 mg PO QPM PRN 03/25/21 03/27/21 History potassium chloride [K-Tab] 20 meq PO BID 03/25/21 03/27/21 History Laboratory Tests 03/26/21 03/26/21 03/26/21 08:49 12:01 17:22 WBC RBC Hgb Hct MCV MCH MCHC RDW Plt Count MPV Immature Gran % (Auto) Neut % (Auto) Lymph % (Auto) [place] % (Auto) Eos % (Auto) Baso % (Auto) Lymph # (Auto) [place] # (Auto) Eos # (Auto) Baso # (Auto) Abs Immat Gran (auto) Absolute Neuts (auto) Absolute Nucleated RBC Nucleated RBC % Platelet Estimate % Immature Plt Fraction Hypochromasia Anisocytosis Ovalocytes Sodium Potassium Chloride Carbon Dioxide Anion Gap BUN Creatinine Estim Creat Clear Calc Estimated GFR Glucose POC Capillary Glucose 110 mg/dl H mg/dl 109 mg/dl H mg/dl 153 mg/dl H mg/dl (65-105) (65-105) (65-105) Calcium Total Bilirubin AST ALT Alkaline Phosphatase Total Protein Albumin Stl Occult Blood (IFOB) 03/26/21 03/27/21 03/27/21 17:58 00:23 05:41 WBC 8.1 K/mm3 K/mm3 (4.5-10.0) RBC 3.17 M/mm3 L M/mm3 (4.2-5.4) Hgb 7.0 g/dL L g/dL (12.0-15.0) Hct 24.6 % L % (37.0-47.0) MCV 77.6 fl L fl (80-100) MCH 22.1 pg L pg (26-34) MCHC 28.5 g/dl L g/dl (32-36) RDW 19.6 % H % (11.5-14.5) Plt Count 160 k/mm3 k/mm3 (150-375) MPV TNP Immature Gran % (Auto) 1.1 % H % (0-0.5) Neut % (Auto) 67.9 % % (45.5-73.1) Lymph % (Auto) 14.1 % L % (18.3-44.2) [place] % (Auto) 11.0 % H % (2.6-8.5) Eos % (Auto) 5.4 % H % (0-4.4) Baso % (Auto) 0.5 % % (0.2-1.2) Lymph # (Auto) 1.14 K/mm3 K/mm3 (0.9-3.2) [place] # (Auto) 0.9 K/mm3 H K/mm3 (0.1-0.6) Eos # (Auto) 0.4 K/mm3 H K/mm3 (0-0.3) Baso # (Auto) 0.0 K/mm3 K/mm3 (0.0-0.1) Abs Immat Gran (auto) 0.09 K/mm3 H K/mm3 (0.00-0.031) Absolute Neuts (auto) 5.5 K/mm3 K/mm3 (1.3-6.7) Absolute Nucleated RBC 0.0 K/mm3 K/mm3 (0.0-0.012) Nucleated RBC % 0.4 % H % (0.
[2021-03-27] MEDS: PANTOPRAZOLE SODIUM IV 40 MG VIAL IV PUSH ×2 (08:44→20:13)
[2021-03-27] MEDS: TOLNAFTATE 1% POWDER 45 GM BTL 1 APPLIC TOPICAL ×2 (08:45→20:14)
[2021-03-27] MEDS: MICONAZOLE NITRATE 2% CREAM 30 GM TUBE 1 APPLIC TOPICAL ×2 (08:45→20:14)
[2021-03-27 08:57] LABS: Glucose Point of Care 111 mg/dl (65-105)
[2021-03-27 09:00] LABS: Lactate Dehydrogenase 462 U/L (313-618)
[2021-03-27 09:08] LABS: Transferrin 302 mg/dL (206-381)
--- NOTE | 2021-03-27 09:33 | PC.NURSE ---
Patient taken by stretcher to the GI lab.
[2021-03-27 09:47] LABS: Glucose Point of Care 112 mg/dl (65-105)
[2021-03-27] MEDS: LACTATED RINGERS 1,000 ML 150 ML IV CONT (09:59)
[2021-03-27 10:06] LABS: Folic Acid 7.2 ng/mL (2.76->20)
--- NOTE | 2021-03-27 10:42 | PCOTNOTE ---
Attempted to see Patient at this time. Patient is out of the room. Per RN, Patient is out having a colonoscopy and EGD.
--- NOTE | 2021-03-27 10:42 | PCPTNOTE ---
Attempted to see patient for PT, unable to see patient due to patient out of room for testing.
[2021-03-27 11:15] LABS: Iron 19 ug/dL (37-170)
[2021-03-27 11:25] LABS: Percent Iron Saturation 6 % (20-50)
[2021-03-27 11:44] LABS: Glucose Point of Care 110 mg/dl (65-105)
[2021-03-27] MEDS: SODIUM CHLORIDE 0.9% IV 250 ML 30 ML IV CONT (12:33)
[2021-03-27] MEDS: FUROSEMIDE INJ 40 MG/4 ML VIAL 20 MG IV PUSH (12:33)
--- NOTE | 2021-03-27 12:54 | PCPTNOTE ---
Attempted to see pt for PT session. RN reports pt just returned from colonoscopy/EGD and is getting ready to receive a blood transfusion. RN requests therapy hold on this date. Will return tomorrow to see if pt is appropriate to participate.
[2021-03-27 12:58] LABS: Free T4 Free Thyroxine Reflex 1.64 ng/dL (0.78-2.19)
--- NOTE | 2021-03-27 12:58 | PCOTNOTE ---
Attempted therapy session; Checked with nursing regarding patient completing occupational therapy this afternoon; per nursing no therapy this afternoon following testing and preparing to have blood transfusion. follow up at later date as appropriate for therapy session.
[2021-03-27 14:35] LABS: Total Triiodothyronine (T3) 0.93 NG/ML (0.97-1.69)
[2021-03-27 16:48] LABS: Glucose Point of Care 128 mg/dl (65-105)
[2021-03-27 18:37] LABS: Hematocrit 30.9 % (37.0-47.0)
[2021-03-27 18:46] LABS: Potassium 3.2 mmol/L (3.4-5.0)
[2021-03-27 21:37] LABS: Glucose Point of Care 117 mg/dl (65-105)
[2021-03-28] VITALS (12 sets, daily range): BP systolic 128–149; BP diastolic 54–81; PULSE 73–126; RESP 12–20; TEMP 36.2–36.7; O2SAT 94–97
--- NOTE | 2021-03-28 02:48 | PC.NURSE ---
Went to give pt xanax due to pt complaining all worked up. Says she always takes it at night or she can't sleep. Pt finally decided she wanted me to try and get it ordered. Then when attempted to give to pt. She then refused to take it at this time.
--- NOTE | 2021-03-28 04:35 | PC.NURSE ---
Attempted to call pt daughter. Pt is highly aggravated. Calling 911 saying we were holding her hostage. Left message for daughter to call back. Have not received any call back as of yet. Pt insistent that she wants to go home. Explained that she wasn't discharged and that we could not get her any ride at this time. Pt highly focused thought she was already discharged.
[2021-03-28] MEDS: SODIUM CHLORIDE 0.9% IV 1,000 ML 100 ML IV CONT (05:52)
[2021-03-28 05:58] LABS: Basophils Percent Auto 0.5 % (0.2-1.2); Eosinophils Absolute Auto 0.4 K/mm3 (0-0.3); Eosinophils Percent Auto 4.7 % (0-4.4); Hematocrit 29.1 % (37.0-47.0); Hemoglobin 8.6 g/dL (12.0-15.0); Immature Granulocyte Absolute 0.05 K/mm3 (0.00-0.031); Immature Granulocyte Percent A 0.6 % (0-0.5); Immature Platelet Fraction Pct 11.7 % (0.9-11.2); Lymphocytes Absolute Auto 1.03 K/mm3 (0.9-3.2); Mean Corpuscular HGB Conc 29.6 g/dl (32-36); Mean Corpuscular Hemoglobin 23.9 pg (26-34); Mean Corpuscular Volume 80.8 fl (80-100); Monocytes Absolute Auto 0.9 K/mm3 (0.1-0.6); Neutrophils Absolute Auto 5.5 K/mm3 (1.3-6.7); Neutrophils Percent Auto 70.2 % (45.5-73.1); Platelet Count Result 175 k/mm3 (150-375); Red Cell Distribution Width 20.4 % (11.5-14.5); White Blood Count 7.9 K/mm3 (4.5-10.0)
[2021-03-28 06:10] LABS: Alanine Aminotransferase 28 U/L (4-35); Albumin Level 3.1 g/dL (3.5-5.1); Alkaline Phosphatase 66 U/L (38-126); Anion Gap 4 mmol/L (8-16); Aspartate Amino Transferase 25 U/L (14-36); Bilirubin,Total 0.8 mg/dL (0.2-1.3); Blood Urea Nitrogen 13 mg/dL (7-17); Calcium 8.8 mg/dL (8.4-10.2); Carbon Dioxide 31 mmol/L (22-30); Chloride 107 mmol/L (98-107); Estimated CRCL calculation 38 ml/min; Estimated Glomerular Filt Rate > 60; Glucose 107 mg/dL (65-105); Magnesium 1.7 mg/dL (1.6-2.3); Potassium 3.1 mmol/L (3.4-5.0); Sodium 142 mmol/L (137-145)
[2021-03-28 06:49] LABS: Helmet Cells 1+ (NORMAL); Hypochromasia 3+ (NORMAL); Platelet Estimate Adequate (Adequate); Polychromasia 1+ (NORMAL)
[2021-03-28 06:50] LABS: Acanthocytes 1+ (NORMAL)
--- NOTE | 2021-03-28 07:18 | P.PNIM_ITS ---
Progress Note: A&P Assessment and Plan (1) Anemia: Qualifiers: Anemia type: iron deficiency Iron deficiency anemia type: unspecified iron deficiency Qualified Code(s): D50.9 - Iron deficiency anemia, unspecified Code(s): D64.9 - Anemia, unspecified Status: Acute Assessment and Plan: * The patient looks like she has been on naproxen and aspirin so will hold those. * Current H/H is 8.6/29.1 * GI consulted thank you for recommendations * EGD had no findings of bleed or perforation * Colonoscopy found diverticulosis with no bleeding. * One unit of PRBC transfused today (03/27/21) * Recheck H/H after transfusion * anemia labs: B12 997, Iron 19, Ferritin 13.70, TIBC 327, Transferrin 302, Folate 7.2 * ferrous sulfate 324mg Daily added * Trend labs * Labs in the am * Occult blood was positive (2) Multiple falls: Code(s): R29.6 - Repeated falls Status: Acute Assessment and Plan: * The patient has bruises on her arms and legs. * specialist wound care consult for possible placement * Patient is going home with Hospice. * Carmela her daughter shops for her * [facility] is following * The patient had fallen in laid on the floor. * IV fluids will DC as the patient is able to eat and drink * creatinine today is 0.8 * Encourage PO intake * PT and OT for weakness. * Gatorade for hydration (3) JOANN (acute kidney injury): Code(s): N17.9 - Acute kidney failure, unspecified Status: Acute Assessment and Plan: * Encourage PO intake * EF of 35% * Creatinine is down to baseline at 0.80. * Trend labs * labs in the am (4) Acute encephalopathy: Code(s): G93.40 - Encephalopathy, unspecified Status: Acute Assessment and Plan: * Resolved * May be related to dehydration, medication, or anemia. * CT of the brain was negative. * This problem is resolved patient seems to be A&O x 3 she does know some places . (5) Weakness: Code(s): R53.1 - Weakness Status: Acute Assessment and Plan: * PT and OT evaluation. * Patient is negative for UTI this time. * Patient going home back on hospice * hse coordinator has been consulted. (6) Anxiety disorder, unspecified: Qualifiers: Anxiety disorder type: generalized anxiety disorder Qualified Code(s): F41.1 - Generalized anxiety disorder Code(s): F41.9 - Anxiety disorder, unspecified Status: Acute Assessment and Plan: * Continue home medications alrazolam 1mg PO bedtime PRN, escitalopram 20mg PO daaily (7) Congestive heart failure: Qualifiers: Heart failure chronicity: chronic Heart failure type: combined systolic and diastolic Qualified Code(s): I50.42 - Chronic combined systolic (congestive) and diastolic (congestive) heart failure Code(s): I50.9 - Heart failure, unspecified Status: Chronic Assessment and Plan: * Last echo 09/04/2020 * EF moderately reduced at 35%, atrium enlarged * 2+ pitting edema BLE * Lasix resumed 20mg PO daily * Will give her a one time dose of 20mg IV as well * Restart coreg 6.25mg PO Q12, losartan 100mg PO daily * BNP 25003 (8) Hypokalemia: Code(s): E87.6 - Hypokalemia Status: Acute Assessment and Plan: * Potassium today 3.1 * Replaced with 40mg PO * Trend potassium * Labs in the am
--- NOTE | 2021-03-28 07:18 | PM.IMPN ---
Progress Note: A&P Assessment and Plan (1) Anemia: Qualifiers: Anemia type: iron deficiency Iron deficiency anemia type: unspecified iron deficiency Qualified Code(s): D50.9 - Iron deficiency anemia, unspecified Code(s): D64.9 - Anemia, unspecified Status: Acute Assessment and Plan: The patient looks like she has been on naproxen and aspirin so will hold those. Current H/H is 8.6/29.1 GI consulted thank you for recommendations EGD had no findings of bleed or perforation Colonoscopy found diverticulosis with no bleeding. One unit of PRBC transfused today (03/27/21) Recheck H/H after transfusion anemia labs: B12 997, Iron 19, Ferritin 13.70, TIBC 327, Transferrin 302, Folate 7.2 ferrous sulfate 324mg Daily added Trend labs Labs in the am Occult blood was positive (2) Multiple falls: Code(s): R29.6 - Repeated falls Status: Acute Assessment and Plan: The patient has bruises on her arms and legs. acute care surgeon consult for possible placement Patient is going home with Hospice. Carmela her daughter shops for her [facility] is following The patient had fallen in laid on the floor. IV fluids will DC as the patient is able to eat and drink creatinine today is 0.8 Encourage PO intake PT and OT for weakness. Gatorade for hydration (3) JOANN (acute kidney injury): Code(s): N17.9 - Acute kidney failure, unspecified Status: Acute Assessment and Plan: Encourage PO intake EF of 35% Creatinine is down to baseline at 0.80. Trend labs labs in the am (4) Acute encephalopathy: Code(s): G93.40 - Encephalopathy, unspecified Status: Acute Assessment and Plan: Resolved May be related to dehydration, medication, or anemia. CT of the brain was negative. This problem is resolved patient seems to be A&O x 3 she does know some places . (5) Weakness: Code(s): R53.1 - Weakness Status: Acute Assessment and Plan: PT and OT evaluation. Patient is negative for UTI this time. Patient going home back on hospice merchandising coordinator has been consulted. (6) Anxiety disorder, unspecified: Qualifiers: Anxiety disorder type: generalized anxiety disorder Qualified Code(s): F41.1 - Generalized anxiety disorder Code(s): F41.9 - Anxiety disorder, unspecified Status: Acute Assessment and Plan: Continue home medications alrazolam 1mg PO bedtime PRN, escitalopram 20mg PO daaily (7) Congestive heart failure: Qualifiers: Heart failure chronicity: chronic Heart failure type: combined systolic and diastolic Qualified Code(s): I50.42 - Chronic combined systolic (congestive) and diastolic (congestive) heart failure Code(s): I50.9 - Heart failure, unspecified Status: Chronic Assessment and Plan: Last echo 09/04/2020 EF moderately reduced at 35%, atrium enlarged 2+ pitting edema BLE Lasix resumed 20mg PO daily Will give her a one time dose of 20mg IV as well Restart coreg 6.25mg PO Q12, losartan 100mg PO daily BNP 31722 (8) Hypokalemia: Code(s): E87.6 - Hypokalemia Status: Acute Assessment and Plan: Potassium today 3.1 Replaced with 40mg PO Trend potassium Labs in the am (9) Chronic respiratory failure with hypoxia: Code(s): J96.11 - Chronic respiratory failure with hypoxia Status: Acute Assessment and Plan: Patient on home O2 at 2L Saturation 92-100% at this time on 2LNC Trend saturations Wean O2 to keep SPO2 >92% (10) Tachycardia: Code(s): R00.0 - Tachycardia, unspecified Status: Acute Assessment and Plan: Heart rate got up to 140-150s today Carvedilol 6.25 PO Q12hr start today Probably from no Beta Fantasma for a few days due to NPO Status Was able to bring it down with vagal maneuve
[2021-03-28 08:13] LABS: Glucose Point of Care 102 mg/dl (65-105)
[2021-03-28] MEDS: POTASSIUM CHLORIDE 20 MEQ TABLET.ER 40 MEQ PO (08:38)
[2021-03-28] MEDS: carvediloL 6.25 MG TABLET PO ×2 (08:38→19:50)
[2021-03-28] MEDS: FUROSEMIDE 20 MG TABLET PO (08:38)
[2021-03-28] MEDS: LOSARTAN POTASSIUM 100 MG TABLET PO (08:38)
[2021-03-28] MEDS: FERROUS SULFATE 324 MG TABLET PO (08:38)
[2021-03-28] MEDS: MICONAZOLE NITRATE 2% CREAM 30 GM TUBE 1 APPLIC TOPICAL ×2 (08:39→19:51)
[2021-03-28] MEDS: TOLNAFTATE 1% POWDER 45 GM BTL 1 APPLIC TOPICAL ×2 (08:39→19:51)
[2021-03-28] MEDS: PANTOPRAZOLE SODIUM IV 40 MG VIAL IV PUSH ×2 (08:40→19:51)
[2021-03-28] MEDS: FUROSEMIDE INJ 40 MG/4 ML VIAL 20 MG IV PUSH (11:15)
[2021-03-28] MEDS: METOPROLOL TARTRATE INJ 5 MG/5 ML VIAL (11:17)
[2021-03-28 11:52] LABS: NT Pro B Type Natriuretic Pept 12000 pg/mL (5-100)
[2021-03-28 11:55] LABS: Troponin I < 0.012 ng/mL (0.000-0.034)
[2021-03-28 12:39] LABS: Glucose Point of Care 109 mg/dl (65-105)
[2021-03-28 17:08] LABS: Glucose Point of Care 123 mg/dl (65-105)
[2021-03-28] MEDS: ALPRAZolam (*CRX) 0.5 MG TABLET 1 MG PO (19:50)
[2021-03-28 20:17] LABS: Glucose Point of Care 130 mg/dl (65-105)
[2021-03-28 20:22] LABS: Myoglobin, Urine <27 mcg/L (<28)
[2021-03-29] VITALS (11 sets, daily range): BP systolic 106–149; BP diastolic 43–62; PULSE 69–88; RESP 16–24; TEMP 36.3–36.6; O2SAT 95–97
[2021-03-29 05:43] LABS: Basophils Percent Auto 0.5 % (0.2-1.2); Eosinophils Absolute Auto 0.4 K/mm3 (0-0.3); Eosinophils Percent Auto 5.5 % (0-4.4); Hematocrit 26.4 % (37.0-47.0); Hemoglobin 7.9 g/dL (12.0-15.0); Immature Granulocyte Absolute 0.03 K/mm3 (0.00-0.031); Immature Granulocyte Percent A 0.5 % (0-0.5); Immature Platelet Fraction Pct 10.7 % (0.9-11.2); Lymphocytes Percent Auto 15.8 % (18.3-44.2); Mean Corpuscular HGB Conc 29.9 g/dl (32-36); Mean Corpuscular Hemoglobin 23.6 pg (26-34); Mean Corpuscular Volume 78.8 fl (80-100); Monocytes Absolute Auto 0.7 K/mm3 (0.1-0.6); Monocytes Percent Auto 11.6 % (2.6-8.5); Neutrophils Absolute Auto 4.2 K/mm3 (1.3-6.7); Neutrophils Percent Auto 66.1 % (45.5-73.1); Platelet Count Result 152 k/mm3 (150-375); Red Blood Count 3.35 M/mm3 (4.2-5.4); Red Cell Distribution Width 21.3 % (11.5-14.5); White Blood Count 6.3 K/mm3 (4.5-10.0)
[2021-03-29 05:59] LABS: Alanine Aminotransferase 20 U/L (4-35); Albumin Level 2.6 g/dL (3.5-5.1); Alkaline Phosphatase 54 U/L (38-126); Anion Gap 3 mmol/L (8-16); Aspartate Amino Transferase 19 U/L (14-36); Bilirubin,Total 0.7 mg/dL (0.2-1.3); Blood Urea Nitrogen 13 mg/dL (7-17); Calcium 8.7 mg/dL (8.4-10.2); Carbon Dioxide 34 mmol/L (22-30); Chloride 105 mmol/L (98-107); Estimated CRCL calculation 38 ml/min; Estimated Glomerular Filt Rate > 60; Glucose 91 mg/dL (65-105); Magnesium 1.5 mg/dL (1.6-2.3); Potassium 2.9 mmol/L (3.4-5.0); Sodium 142 mmol/L (137-145)
[2021-03-29 06:18] LABS: Hypochromasia 3+ (NORMAL); Tear Drop Cells 2+ (NORMAL)
[2021-03-29 06:19] LABS: Helmet Cells 2+ (NORMAL); Platelet Estimate Adequate (Adequate); Stomatocytes 1+ (NORMAL)
[2021-03-29 07:54] LABS: Glucose Point of Care 87 mg/dl (65-105)
[2021-03-29] MEDS: MICONAZOLE NITRATE 2% CREAM 30 GM TUBE 1 APPLIC TOPICAL ×2 (08:28→20:47)
[2021-03-29] MEDS: FUROSEMIDE 20 MG TABLET PO (08:28)
[2021-03-29] MEDS: POTASSIUM CHLORIDE 20 MEQ TABLET.ER 40 MEQ PO (08:28)
[2021-03-29] MEDS: carvediloL 6.25 MG TABLET PO ×2 (08:28→20:52)
[2021-03-29] MEDS: FERROUS SULFATE 324 MG TABLET PO (08:28)
[2021-03-29] MEDS: TOLNAFTATE 1% POWDER 45 GM BTL 1 APPLIC TOPICAL ×2 (08:28→20:47)
[2021-03-29] MEDS: LOSARTAN POTASSIUM 100 MG TABLET PO (08:28)
[2021-03-29] MEDS: PANTOPRAZOLE SODIUM IV 40 MG VIAL IV PUSH ×2 (08:50→20:52)
[2021-03-29] MEDS: MAGNESIUM SULFATE 3GM/D5W100ML 3 GM/100 ML BAG IVPB (09:18)
[2021-03-29 12:11] LABS: Glucose Point of Care 157 mg/dl (65-105)
[2021-03-29 12:47] LABS: Glucose Point of Care 148 mg/dl (65-105)
--- NOTE | 2021-03-29 15:17 | P.PNIM_ITS ---
Progress Note: A&P Assessment and Plan (1) Anemia: Qualifiers: Anemia type: iron deficiency Iron deficiency anemia type: unspecified iron deficiency Qualified Code(s): D50.9 - Iron deficiency anemia, unspecified Code(s): D64.9 - Anemia, unspecified Status: Acute Assessment and Plan: She was transfuse 1 unit PRBC on 03/27/2021. H&H remaining stable following. iron panel consistent with iron deficiency anemia. B12 and folate within normal limits. * Gastroenterology following. Stool occult blood test positive. EGD with no acute findings. colonoscopy with diverticulosis without evidence of bleeding. * Aspirin and naproxen currently on hold * will administer IV Venofer. hold p.o. iron * monitor H&H closely and transfuse as needed with hemoglobin goal >7.0 (2) Multiple falls: Code(s): R29.6 - Repeated falls Status: Acute Assessment and Plan: She is established with [facility] hospice but presented due to frequent falls at home, suspect related to overall weakness from physical deconditioning. no evidence of injury on head CT and cervical spine CT * Fall precautions * Appreciate PT/OT * Plan is to return back home with hospice. Care coordination following. (3) JOANN (acute kidney injury): Code(s): N17.9 - Acute kidney failure, unspecified Status: Acute Assessment and Plan: Resolved. Creatinine 1.4 at presentation. suspect prerenal etiology secondary to dehydration given improvement with IV fluids. Creatinine is back to baseline at 0.8 today. * Monitor renal function closely. * Encourage oral fluid intake (4) Congestive heart failure: Qualifiers: Heart failure type: combined systolic and diastolic Heart failure chronicity: chronic Qualified Code(s): I50.42 - Chronic combined systolic (congestive) and diastolic (congestive) heart failure Code(s): I50.9 - Heart failure, unspecified Status: Chronic Assessment and Plan: Echo reviewed with evidence of small pleural effusions and cardiomegaly, possibly pulmonary edema. BNP [id number]. she appears overall euvolemic at this time. * Continue PO Lasix, carvedilol, losartan * Monitor intake and output, daily weights * Heart healthy diet (5) Electrolyte abnormality: Code(s): E87.8 - Other disorders of electrolyte and fluid balance, not elsewhere cl assified Status: Acute Assessment and Plan: Potassium is low at 2.9 and magnesium is 1.5. Not entirely clear on etiology, may be related to poor PO intake. * Administer IV magnesium sulfate * IV and PO Kcl for total of 80 mEq * Monitor electrolytes * Monitor on telemetry (6) Chronic respiratory failure with hypoxia: Code(s): J96.11 - Chronic respiratory failure with hypoxia Status: Acute Assessment and Plan: On 2 L supplemental O2 at all times. maintaining adequate oxygenation on her typical 2 L * continue supplemental O2 with goal saturation 90% or above. (7) Tachycardia: Code(s): R00.0 - Tachycardia, unspecified Status: Acute Assessment and Plan: she had an episode of tachycardia yesterday up to 150s. this was likely due to beta-cecil withdrawal as she had been NPO for few days and did not receive any beta-blockade medication. She had improvement with IV metoprolol. Rate reviewed today and has been stable in the 70s. * continue carvedilol b.i.d. * monitor on telemetry Subjective Date/time seen: 03/29/21 15:17 Interval hist
--- NOTE | 2021-03-29 15:17 | PM.IMPN ---
Progress Note: A&P Assessment and Plan (1) Anemia: Qualifiers: Anemia type: iron deficiency Iron deficiency anemia type: unspecified iron deficiency Qualified Code(s): D50.9 - Iron deficiency anemia, unspecified Code(s): D64.9 - Anemia, unspecified Status: Acute Assessment and Plan: She was transfuse 1 unit PRBC on 03/27/2021. H&H remaining stable following. iron panel consistent with iron deficiency anemia. B12 and folate within normal limits. Gastroenterology following. Stool occult blood test positive. EGD with no acute findings. colonoscopy with diverticulosis without evidence of bleeding. Aspirin and naproxen currently on hold will administer IV Venofer. hold p.o. iron monitor H&H closely and transfuse as needed with hemoglobin goal >7.0 (2) Multiple falls: Code(s): R29.6 - Repeated falls Status: Acute Assessment and Plan: She is established with [facility] hospice but presented due to frequent falls at home, suspect related to overall weakness from physical deconditioning. no evidence of injury on head CT and cervical spine CT Fall precautions Appreciate PT/OT Plan is to return back home with hospice. Care coordination following. (3) JOANN (acute kidney injury): Code(s): N17.9 - Acute kidney failure, unspecified Status: Acute Assessment and Plan: Resolved. Creatinine 1.4 at presentation. suspect prerenal etiology secondary to dehydration given improvement with IV fluids. Creatinine is back to baseline at 0.8 today. Monitor renal function closely. Encourage oral fluid intake (4) Congestive heart failure: Qualifiers: Heart failure type: combined systolic and diastolic Heart failure chronicity: chronic Qualified Code(s): I50.42 - Chronic combined systolic (congestive) and diastolic (congestive) heart failure Code(s): I50.9 - Heart failure, unspecified Status: Chronic Assessment and Plan: Echo reviewed with evidence of small pleural effusions and cardiomegaly, possibly pulmonary edema. BNP [id number]. she appears overall euvolemic at this time. Continue PO Lasix, carvedilol, losartan Monitor intake and output, daily weights Heart healthy diet (5) Electrolyte abnormality: Code(s): E87.8 - Other disorders of electrolyte and fluid balance, not elsewhere classified Status: Acute Assessment and Plan: Potassium is low at 2.9 and magnesium is 1.5. Not entirely clear on etiology, may be related to poor PO intake. Administer IV magnesium sulfate IV and PO Kcl for total of 80 mEq Monitor electrolytes Monitor on telemetry (6) Chronic respiratory failure with hypoxia: Code(s): J96.11 - Chronic respiratory failure with hypoxia Status: Acute Assessment and Plan: On 2 L supplemental O2 at all times. maintaining adequate oxygenation on her typical 2 L continue supplemental O2 with goal saturation 90% or above. (7) Tachycardia: Code(s): R00.0 - Tachycardia, unspecified Status: Acute Assessment and Plan: she had an episode of tachycardia yesterday up to 150s. this was likely due to beta-cecil withdrawal as she had been NPO for few days and did not receive any beta-blockade medication. She had improvement with IV metoprolol. Rate reviewed today and has been stable in the 70s. continue carvedilol b.i.d. monitor on telemetry Subjective Date/time seen: 03/29/21 15:17 Interval history: Date of service: 03/29/2021 Nelda Roman is an 85-year-old female with history of cardiomyopathy, chronic respiratory failure, CHF, hypertension, atrial fibrillation, and diabetes who is current with hospice who is seen in follow-up for frequent falls. She is feeling fairly well today. She is able to answer my questions appropriately and follow commands. She feels nauseous but has not vomited. She is eating well. She feels weak and tir
[2021-03-29] MEDS: IRON SUCROSE COMPLEX 100 MG in SODIUM CHLORIDE 0.9% IV 50 ML 220 MG IVPB (17:28)
[2021-03-29 20:52] LABS: Glucose Point of Care 111 mg/dl (65-105)
[2021-03-29] MEDS: ALPRAZolam (*CRX) 0.5 MG TABLET 1 MG PO (20:53)
[2021-03-30] VITALS (8 sets, daily range): BP systolic 107–148; BP diastolic 46–87; PULSE 72–104; RESP 18; TEMP 36.1–36.3; O2SAT 86–97
[2021-03-30 05:52] LABS: Hematocrit 27.6 % (37.0-47.0); Hemoglobin 8.2 g/dL (12.0-15.0); Mean Corpuscular HGB Conc 29.7 g/dl (32-36); Mean Corpuscular Hemoglobin 23.6 pg (26-34); Mean Corpuscular Volume 79.5 fl (80-100); Platelet Count Result 147 k/mm3 (150-375); Red Blood Count 3.47 M/mm3 (4.2-5.4); Red Cell Distribution Width 22.2 % (11.5-14.5); White Blood Count 6.7 K/mm3 (4.5-10.0)
[2021-03-30 06:06] LABS: Anion Gap 5 mmol/L (8-16); Blood Urea Nitrogen 13 mg/dL (7-17); Calcium 8.8 mg/dL (8.4-10.2); Carbon Dioxide 34 mmol/L (22-30); Chloride 104 mmol/L (98-107); Estimated CRCL calculation 31 ml/min; Estimated Glomerular Filt Rate 53; Glucose 95 mg/dL (65-105); Potassium 3.4 mmol/L (3.4-5.0); Sodium 143 mmol/L (137-145)
[2021-03-30] MEDS: POTASSIUM CHLORIDE 20 MEQ TABLET.ER 40 MEQ PO (09:01)
[2021-03-30] MEDS: FUROSEMIDE 20 MG TABLET PO (09:01)
[2021-03-30] MEDS: carvediloL 6.25 MG TABLET PO (09:01)
[2021-03-30] MEDS: IRON SUCROSE COMPLEX 100 MG in SODIUM CHLORIDE 0.9% IV 50 ML 220 MG IVPB (09:01)
[2021-03-30] MEDS: PANTOPRAZOLE SODIUM IV 40 MG VIAL IV PUSH (09:02)
[2021-03-30] MEDS: LOSARTAN POTASSIUM 100 MG TABLET PO (09:02)
[2021-03-30] MEDS: TOLNAFTATE 1% POWDER 45 GM BTL 1 APPLIC TOPICAL (09:02)
[2021-03-30] MEDS: MICONAZOLE NITRATE 2% CREAM 30 GM TUBE 1 APPLIC TOPICAL (09:02)
--- NOTE | 2021-03-30 09:59 | PCPTNOTE ---
Attempted to see patient at 9:55 AM for PT treatment, however patient refused. Patient had blanket up over face and head laying in bed. When asked to participate with physical therapy, Patient states, I don't want any. Everyone just needs to leave me alone. Patient kept blanket over her face the entire time while talking to patient. Will attempt to see patient later per POC as appropriate. Dasha Madsen, INSERTER PROMOTIONAL ITEM
--- NOTE | 2021-03-30 13:03 | PM.DS ---
DS: Admitting Diagnosis Admitting Diagnosis Admitting Diagnosis: Falls DS: Discharge Diagnosis Discharge Diagnosis (1) Anemia: Qualifiers: Anemia type: iron deficiency Iron deficiency anemia type: unspecified iron deficiency Qualified Code(s): D50.9 - Iron deficiency anemia, unspecified Code(s): D64.9 - Anemia, unspecified Status: Acute Assessment and Plan: She was transfused 1 unit pRBC on 03/27/2021. H&H remained stable following. Iron panel was consistent with iron deficiency anemia. B12 and folate within normal limits. She was seen in consultation by Gastroenterology. Stool occult blood test positive. She had an EGD with no acute findings and colonoscopy which showed diverticulosis without evidence of bleeding. she received IV iron infusions and will continue with PO iron supplementation. Repeat H&H in 1 week to ensure remaining stable. (2) Multiple falls: Code(s): R29.6 - Repeated falls Status: Acute Assessment and Plan: She is established with [facility] hospice but presented due to frequent falls at home, suspect related to overall weakness from physical deconditioning. No evidence of injury on head CT and cervical spine CT. She was evaluated by PT / OT. She declined prison placement and ultimately decided to return back home with hospice care. (3) JOANN (acute kidney injury): Code(s): N17.9 - Acute kidney failure, unspecified Status: Acute Assessment and Plan: Resolved. Creatinine 1.4 at presentation. suspect prerenal etiology given prompt improvement with IV fluids. Creatinine returned to baseline (4) Congestive heart failure: Qualifiers: Heart failure chronicity: chronic Heart failure type: combined systolic and diastolic Qualified Code(s): I50.42 - Chronic combined systolic (congestive) and diastolic (congestive) heart failure Code(s): I50.9 - Heart failure, unspecified Status: Chronic Assessment and Plan: Echo reviewed with evidence of small pleural effusions and cardiomegaly, possibly pulmonary edema. BNP was [id number]. IV fluids were discontinued promptly and she was diuresed with IV Lasix and then transitioned to her usual PO Lasix. She was euvolemic on my initial encounter. Continue carvedilol and losartan. CHF education provided. Continue heart healthy diet. (5) Electrolyte abnormality: Code(s): E87.8 - Other disorders of electrolyte and fluid balance, not elsewhere classified Status: Acute Assessment and Plan: Potassium and magnesium were low, likely due to poor PO intake. She received IV potassium and magnesium supplementation and levels normalized. Monitored on telemetry with no arrhythmias. She will continue with oral supplements at home (6) Chronic respiratory failure with hypoxia: Code(s): J96.11 - Chronic respiratory failure with hypoxia Status: Acute Assessment and Plan: On 2 L supplemental O2 at all times. She maintained adequate oxygenation on her typical 2 L. (7) Tachycardia: Code(s): R00.0 - Tachycardia, unspecified Status: Acute Assessment and Plan: she had an episode of tachycardia on 03/28 with heart rate up to 150s. This was likely due to beta-cecil withdrawal as she had been NPO and did not receive any beta-blockade medication. She had improvement with IV metoprolol. She was monitored on telemetry and rate remained stable on her carvedilol 6.25 bid. (8) Atrial fibrillation with rapid ventricular response: Code(s): I48.91 - Unspecified atrial fibrillation Status: Acute Assessment and Plan: EKG on presentation showed atrial fibrillation with heart rate up to 110. On 03/28 she had an episode with heart rate up to 150s. This was likely due to beta-cecil withdrawal as she had been NPO and did not receive any beta-blockade medication. She had improvement with IV metoprolol. She was monitored on t
--- NOTE | 2021-03-30 13:21 | PC.NURSE ---
When ambulating to bathroom patient had an episode of tachycardia - Afib with rate up to 160 noted. Upon returning to bed, HR returned to low 100s. Patient denied symptoms. Notified Kimberly MOLINA
--- NOTE | 2021-03-30 14:39 | PCPTNOTE ---
Attempted to see patient for second attempt at 14:35 for PT treatment, however patient continues to refuse. Patient states that she is going home soon and she is exhausted and just wants to relax. Patient did not complete PT treatment this date. Dasha Madsen, TECHNICAL SALES REPRESENTATIVES
--- NOTE | 2021-03-30 17:30 | PC.NURSE ---
Patient to return home via ambulance. [facility] to continue to follow at home as before.
== END 2021-03-30 17:30 | disposition hospice, home (50) | DRG 683 ==
LOC: ANHED 17:19 → ANH2MED 18:06
PROVIDERS: Emergency Medicine; Internal Medicine Gastroenterology; Nurse Practitioner; Admitting Provider Family Medicine; Emergency Provider Family Medicine; Visit Provider Physician Assistant
PROC: 0DJ08ZZ Inspection of Upper Intestinal Tract, Via Natural or Artificial Opening Endoscopic (ICD-10-PCS; CPT 43235; principal; 2021-03-27 11:00)
DX: N17.9 Acute kidney failure, unspecified (principal); G93.40 Encephalopathy, unspecified; I50.42 Chronic combined systolic (congestive) and diastolic (congestive) heart failure; J96.11 Chronic respiratory failure with hypoxia; I42.9 Cardiomyopathy, unspecified; I48.0 Paroxysmal atrial fibrillation; I11.0 Hypertensive heart disease with heart failure; E11.9 Type 2 diabetes mellitus without complications; F41.9 Anxiety disorder, unspecified; D50.0 Iron deficiency anemia secondary to blood loss (chronic); E87.6 Hypokalemia
CPT/HCPCS: 36415; 36430; 51702; 70450; 71046; 72125; 80048; 80053; 80076; 81001; 82274; 82550; 82607; 82728; 82746; 82948; 83036; 83540; 83550; 83615; 83735; 83874; 83880; 84132; 84439; 84443; 84466; 84480; 84484; 85014; 85018; 85025; 85027; 85055; 86850; 86900; 86901; 86920; 87081; 93005; 96360; 97110; 97161; 97165; 97530; 97535; 99285; A9270; C9113; J1756; J1940; J2405; J2704; J3475; J3480; J7030; J7050; J7120; P9016

== ENCOUNTER 2024-09-02 19:44 | Inpatient (IN) | payer MEDICARE, SELFPAY ==
[2024-09-02] VITALS (7 sets, daily range): BP systolic 120–150; BP diastolic 81–107; PULSE 91–140; RESP 17–31; TEMP 36.8–37.1; O2SAT 98–100; BMI 11.7
--- NOTE | ~2024-09-02 | XR_ITS ---
EXAM: XR hip LT 2V w AP pelvis DATE: 09/02/2024 20:15 HISTORY: pain s/p fall . COMPARISON: CT abdomen pelvis 10/06/2020. FINDINGS: Decreased mineralization. Transverse left femoral neck fracture, with 3 cm superior displa cement. No lytic or blastic lesion. Degenerative changes in the spine and bilateral hips. No erosion or periosteal change. Mild scattered vascular calcifications. IMPRESSION: Transcervical left femoral neck fracture with superior displacement. Reviewed, dictated and finalized at location K. CAL ADMINISTRATIVE SPECIALIST IMPRESSION: Transcervical left femoral neck fracture with superior displacement .
--- NOTE | ~2024-09-02 | CT_ITS ---
EXAMINATION: CT cervical spine wo con DATE: 09/02/2024 20:36 INDICATION: trauma TECHNIQUE: Computed tomography (CT) of the cervical spine was performed without intravenous contrast. Automated exposure control and iterative reconstruction technique were employed. The dose-length pro duct was 85.79 mGy-cm. COMPARISON: 03/25/2021. FINDINGS: Vertebral Body Alignment: Stable minimal anterolistheses at C3-4, C4-5, and C7-T1. Craniocervical and atlantoaxial alignment: Moderate degenerative change. Alignment intact. Osseous structures/fracture: No evidence of a lytic or blastic process in the visualized spine. No e vidence of acute fracture. Right facet fusion at C3-4. Cervical soft tissues: The paraspinal soft tissues planes are maintained. Degenerative changes: Degenerative changes, without severe neural foraminal or central canal narrowin g. IMPRESSION: No acute fracture or traumatic malalignment in the cervical spine. Reviewed, dictated and finalized at location K. OSIVE OPERATOR SUPERVISOR
--- NOTE | ~2024-09-02 | CT_ITS ---
EXAMINATION: CT brain wo con DATE: 09/02/2024 20:36 INDICATION: trauma . TECHNIQUE: Computed tomography (CT) of the head was performed without intravenous contrast. The mA wa s adjusted according to patient size. Iterative reconstruction technique was employed. The dose-lengt h product was 1437.67 mGy-cm. COMPARISON: 03/25/2021. FINDINGS: No acute intracranial hemorrhage or extra-axial fluid collection. No hydrocephalus, mass, or herniation. No acute ischemic infarct. Unremarkable dural venous sinus attenuation. No acute osseous abnormality. The aerated spaces are clear. Moderate atrophy and chronic white matter change. Atherosclerotic intracranial calcification. Bilater al lens replacements. Bilateral basal ganglia calcifications. IMPRESSION: No acute intracranial process. Reviewed, dictated and finalized at location K. GER CUSTOMER
--- NOTE | ~2024-09-02 | XR_ITS ---
EXAMINATION: XR chest 1V Exam Date/Time: 09/02/2024 20:00 YARD DRIVER HISTORY: cough Comparison: 03/25/2021. RESULT: Lines, tubes, and devices: Cholecystectomy clips. Lungs and pleura: Senescent changes. Subsegmental patchy opacities in the bilateral lower lungs. Mod erate bilateral costophrenic angle blunting. Cardiomediastinal silhouette: Stable. Other: No acute osseous or upper abdominal finding. IMPRESSION: Subsegmental bibasilar atelectasis/consolidation. Moderate bilateral pleural effusions. Reviewed, dictated and finalized at location K. DRIVER IMPRESSION: Subsegmental bibasilar atelectasis/consolidation. Moderate bilateral pleural ef fusions.
--- NOTE | ~2024-09-02 | XR_ITS ---
EXAM: XR knee LT 3V DATE: 09/02/2024 20:15 HISTORY: pain s/p fall . COMPARISON: None available. FINDINGS: Severely decreased mineralization. Significant quantum mottle in the oblique and lateral v iews. No fracture or dislocation. No lytic or blastic lesion. Severe tricompartmental osteoarthritis. No erosion or periosteal change. Soft tissue swelling about the knee. IMPRESSION: No acute osseous finding in the left knee. Reviewed, dictated and finalized at location K. ER WORKER HELPER
[2024-09-02 21:04] LABS: Basophils Percent Auto 0.3 % (0.2-1.2); Hematocrit 33.2 % (37.0-47.0); Hemoglobin 11.1 g/dL (12.0-15.0); Immature Granulocyte Absolute 0.08 K/mm3 (0.00-0.031); Immature Granulocyte Percent A 0.5 % (0-0.5); Immature Platelet Fraction Pct 11.2 % (0.9-11.2); Lymphocytes Absolute Auto 0.32 K/mm3 (0.9-3.2); Lymphocytes Percent Auto 2.2 % (18.3-44.2); Mean Corpuscular HGB Conc 33.4 g/dl (32-36); Mean Corpuscular Hemoglobin 31.6 pg (26-34); Mean Corpuscular Volume 94.6 fl (80-100); Mean Platelet Volume 13.3 fl (7.4-10.4); Monocytes Absolute Auto 0.6 K/mm3 (0.1-0.6); Monocytes Percent Auto 3.9 % (2.6-8.5); Neutrophils Absolute Auto 13.8 K/mm3 (1.3-6.7); Neutrophils Percent Auto 93.1 % (45.5-73.1); Platelet Count Result 152 k/mm3 (150-375); Red Blood Count 3.51 M/mm3 (4.2-5.4); Red Cell Distribution Width 14.6 % (11.5-14.5); White Blood Count 14.8 K/mm3 (4.5-10.0)
--- NOTE | 2024-09-02 21:07 | PC.NURSE ---
mail service coordinator at [facility] called and provided update
--- NOTE | 2024-09-02 21:08 | ED_ITS ---
HPI - General Adult General Chief complaint: Fall Stated complaint: hip fx Time Seen by Provider: 09/02/24 19:48 History of Present Illness HPI narrative: Patient is a 88-year-old female who presents emergency department with chief complaint of fall. Patient is currently undergoing hospice care for congestive heart failure and does ambulate at home. The patient had 2 ground level falls recently and today had a ground level fall was unable to ambulate afterwards. Patient reports pain in her left hip area the patient reports that she was unable to walk afterwards Related Data Home Medications Medication Instructions Recorded Confirmed alprazolam 0.5 mg tablet 1 mg PO Q4H PRN Anxiety 03/25/21 09/02/24 acetaminophen 325 mg tablet 650 mg PO Q6H PRN Pain 09/02/24 09/02/24 bisacodyl 5 mg tablet,delayed 5 mg PO DAILY 09/02/24 09/02/24 release (Dulcolax (bisacodyl)) furosemide 20 mg tablet 40 mg PO DAILY 09/02/24 09/02/24 hydrocodone 5 mg-acetaminophen 325 1 tablet PO Q4H PRN Pain 09/02/24 09/02/24 mg tablet hyoscyamine sulfate 0.125 mg 0.125 mg PO Q4H PRN excess 09/02/24 09/02/24 tablet (Levsin) secretions meclizine 25 mg tablet (Dramamine 25 mg PO DAILY PRN Dizziness 09/02/24 09/02/24 (meclizine)) melatonin 3 mg tablet 6 mg PO HS PRN Insomnia 09/02/24 09/02/24 morphine 20 mg/5 mL (4 mg/mL) oral 5 mg PO Q4H PRN pain/dyspnea 09/02/24 09/02/24 solution ondansetron HCl 4 mg tablet 4 mg PO Q4H PRN nausea/vomiting 09/02/24 09/02/24 polyethylene glycol 3350 17 gram 17 g PO DAILY 09/02/24 09/02/24 oral powder packet (Miralax) sennosides 8.6 mg-docusate sodium 1 tab-cap PO DAILY PRN Constipation 09/02/24 09/02/24 50 mg tablet (Senna-S) Allergies Allergy/AdvReac Type Severity Reaction Status Date / Time duloxetine Allergy Severe ENTIRE Verified 09/02/24 19:57 BODY BECAME RED AND HOT W/ WEAKNESS, N/V acetaminophen Allergy Unknown Verified 09/02/24 19:57 hydrocodone Allergy Unknown Verified 09/02/24 19:57 meperidine AdvReac Unknown Confusion Verified 09/02/24 19:57 Review of Systems Review of Systems: A 10 system review of systems was completed on the patient and is negative except for what is stated in the HPI. Nursing and ancillary documentation was reviewed. [facility] Past Medical History Medical History Anxiety disorder, unspecified Bilateral primary osteoarthritis of knee Cardiomyopathy Cholelithiasis s/p cholecystectomy Chronic respiratory failure with hypoxia Congestive heart failure Essential (primary) hypertension History of GI bleed 03/2019 Iron deficiency anemia due to chronic blood loss Paroxysmal atrial fibrillation Tachycardia Type 2 diabetes mellitus without complications Surgical History Surgical History History of appendectomy History of back surgery History of cholecystectomy History of hysterectomy History of knee surgery Family History Family History Mother Family history of lung cancer Hypertension Sibling Family history of diabetes mellitus in first degree relative Family history of malignant neoplasm of breast in first degree relative Grandparent Diabetes mellitus Acute myocardial infarction Other Carcinoma of colon Family history of malignant neoplasm of breast Social History Social History Social History: Patient lives at home alone with daughter occasionally checking in. Wishes her Daughter to be surrogate MDM. She wishes to be DNR. Smoking status: Never smoker Second hand tobacco smoke exposure: No Alcohol intake: never Substance use: never Do You Feel Safe in your Home?: Yes Lack of Transportation: No Lack of Food: Never True Current Housing: I Have Housing Concerned About Future Housing: No Difficulty Paying Gas/Electric Bills: No Difficulty Paying for Meds: No Currently Unemployed: No Education: High School Diploma/GED Difficulty w/ Childcare or Family Care: No Gender identity (if verbalized by the patient): Female Spiritual care concerns: No Exam Narrative: GENERAL: Well-appearing, well-nourished, and in no acute distress. HEAD: Normocephalic, atraumatic. EYES: PERRLA and EOMI. ENT: Nares clear, no rhinorrhea or epistaxis. Mucous membranes moist. NECK: Supple. CHEST: Clear to auscultation. No respiratory distress. HEART: Regular rate and rhythm. No murmur heard. Normal peripheral pulses. ABDOMEN: Soft, nontender, nondistended, normal active bowel sounds. EXTREMITIES: Normal range of motion in all extremities except for left lower extremity which is shortened and externally rotated. No edema. SKIN: Warm, dry, no rash. NEURO: No focal deficits. Alert and oriented x3. PSYCH: Normal mood and affect. Course Vital Signs Vital signs: Vital Signs Temperature 37.1 C 09/02/24 19:44 Pulse Rate 116 H 09/02/24 19:44 Respiratory Rate 18 09/02/24 19:44 Blood Pressure 144/90 H 09/02/24 19:44 Pulse Oximetry 99 09/02/24 19:44 Oxygen Delivery Room Air 09/02/24 19:44 Temperature 36.8 C 09/02/24 23:13 Pulse Rate 91 09/02/24 23:17 Respiratory Rate 18 09/02/24 23:17 Blood Pressure 150/97 H 09/02/24 23:13 Pulse Oximetry 98 09/02/24 23:17 Oxygen Delivery Nasal Cannula 09/02/24 23:17 Oxygen Flow Rate 3 09/02/24 23:17 Medical Decision Making MDM Narrative Medical decision making narrative: Differential diagnosis includes hip fracture, contusion, Shortly film x-rays of the left hip showed a Transcervical left femoral neck fracture with superior displacement. CT head CT C-spine showed no acute abnormality knee x-ray showed no evidence of fracture chest x-ray did show pleural effusions Vital Signs Vital Signs: Vital Signs Temperature 37.1 C 09/02/24 19:44 Pulse Rate 116 H 09/02/24 19:44 Respiratory Rate 18 09/02/24 19:44 Blood Pressure 144/90 H 09/02/24 19:44 Pulse Oximetry 99 09/02/24 19:44 Oxygen Delivery Room Air 09/02/24 19:44 Temperature 36.8 C 09/02/24 23:13 Pulse Rate 91 09/02/24 23:17 Respiratory Rate 18 09/02/24 23:17 Blood Pressure 150/97 H 09/02/24 23:13 Pulse Oximetry 98 09/02/24 23:17 Oxygen Delivery Nasal Cannula 09/02/24 23:17 Oxygen Flow Rate 3 09/02/24 23:17 Lab Data 09/02/24 20:56 09/02/24 20:56 Labs: Lab Results 09/02/24 09/02/24 Range/Units 20:56 21:27 WBC 14.8 H (4.5-10.0) K/mm3 RBC 3.51 L (4.2-5.4) M/mm3 Hgb 11.1 L (12.0-15.0) g/dL Hct 33.2 L (37.0-47.0) % MCV 94.6 (80-100) fl MCH 31.6 (26-34) pg MCHC 33.4 (32-36) g/dl RDW 14.6 H (11.5-14.5) % Plt Count 152 (150-375) k/mm3 MPV 13.3 H (7.4-10.4) fl Immature Gran % (Auto) 0.5 (0-0.5) % Neut % (Auto) 93.1 H (45.5-73.1) % Lymph % (Auto) 2.2 L (18.3-44.2) % [place] % (Auto) 3.9 (2.6-8.5) % Eos % (Auto) 0.0 (0-4.4) % Baso % (Auto) 0.3 (0.2-1.2) % Lymph # (Auto) 0.32 L (0.9-3.2) K/mm3 [place] # (Auto) 0.6 (0.1-0.6) K/mm3 Eos # (Auto) 0.0 (0-0.3) K/mm3 Baso # (Auto) 0.0 (0.0-0.1) K/mm3 Abs Immat Gran (auto) 0.08 H (0.00-0.031) K/mm3 Absolute Neuts (auto) 13.8 H (1.3-6.7) K/mm3 Absolute Nucleated RBC 0.000 (0.0-0.012) K/mm3 Nucleated RBC % 0.0 (0.0-0.2) % Platelet Estimate Adequate (Adequate) Large Platelets Present % Immature Plt Fraction 11.2 (0.9-11.2) % Anisocytosis 1+ Schistocytes None seen PT 15.8 H (11.1-14.7) Seconds INR 1.2 APTT 28.8 (22.3-36.8) Seconds Sodium 139 (137-145) mmol/L Potassium 3.2 L (3.4-5.0) mmol/L Chloride 91 L (98-107) mmol/L Carbon Dioxide > 40 H (22-30) mmol/L Anion Gap (4-12) mmol/L BUN 40 H D (7-17) mg/dL Creatinine 1.30 H (0.7-1.0) mg/dL Estim Creat Clear Calc 21 ml/min Estimated GFR 39 L (59 - ) Glucose 170 H (65-110) mg/dL Calcium 9.4 (8.4-10.2) mg/dL Total Bilirubin 1.4 H (0.2-1.3) mg/dL AST 35 (14-36) U/L ALT 21 (6-35) U/L Alkaline Phosphatase 81 (38-126) U/L Total Protein 7.0 (6.3-8.2) g/dL Albumin 3.8 (3.5-5.1) g/dL Urine Color Yellow (Yellow) Urine Appearance Cloudy H (Clear) Urine pH 6.0 (5.0-9.0) Ur Specific Magazine 1.012 (1.001-1.035) Urine Protein 1+ H (Negative) mg/dL Urine Glucose (UA) Negative (Negative) mg/dL Urine Ketones Negative (Negative) mg/dL Ur Blood (Man) Non-hemolyzed trace H (Negative) Urine Nitrate Negative (Negative) Urine Bilirubin Negative (Negative) Urine Urobilinogen 1.0 (<2.0) mg/dL Leukocyte Esterase Rfl 3+ H (Negative) ROSA/UL Urine RBC 3-5 H (0-2) /hpf Urine WBC >100 H (0-3) /hpf Ur Squamous Epith Cells Occasional (Few) /hpf Urine Bacteria 4+ H /hpf Urine Casts 3-5 Discharge Plan Discharge Clinical Impression: Closed fracture of left hip Patient Disposition: Still a Patient Condition: Stable
[2024-09-02 21:18] LABS: Alanine Aminotransferase 21 U/L (6-35); Albumin Level 3.8 g/dL (3.5-5.1); Alkaline Phosphatase 81 U/L (38-126); Aspartate Amino Transferase 35 U/L (14-36); Bilirubin,Total 1.4 mg/dL (0.2-1.3); Blood Urea Nitrogen 40 mg/dL (7-17); Calcium 9.4 mg/dL (8.4-10.2); Carbon Dioxide > 40 mmol/L (22-30); Chloride 91 mmol/L (98-107); Estimated CRCL calculation 21 ml/min; Estimated Glomerular Filt Rate 39; Glucose 170 mg/dL (65-110); Potassium 3.2 mmol/L (3.4-5.0); Sodium 139 mmol/L (137-145)
[2024-09-02 21:21] LABS: INR 1.2; Partial Thromboplastin Time 28.8 Seconds (22.3-36.8); Prothrombin Time 15.8 Seconds (11.1-14.7)
[2024-09-02 21:34] LABS: Platelet Estimate Adequate (Adequate)
[2024-09-02 21:35] LABS: Anisocytosis 1+; Large Platelets Present; Schistocytes None Seen
[2024-09-02 21:37] LABS: Add Urine Microscopic? YES; Appearance Urine Cloudy (Clear); Bacteria Urine 4+ /hpf; Bilirubin Urine Negative (Negative); Blood Urine Non-Hemolyzed Trace (Negative); Color Urine Yellow (Yellow); Glucose Urine UA Negative (Negative); Ketones Urine Negative (Negative); Leukocyte Esterase Ur 3+ LEU/UL (Negative); Nitrate Urine Negative (Negative); Protein Urine 1+ mg/dL (Negative); Specific Grav Ur 1.012 (1.001-1.035); Squamous Epithelial Cell Urine Occasional /hpf (Few); WBC Urine >100 /hpf (0-3)
[2024-09-02] MEDS: MORPHINE SULFATE (*CRX) 4 MG/ML INJ 2 MG IV PUSH (22:28)
--- NOTE | 2024-09-02 23:14 | ADMGEN ---
This patient, Nelda Roman, was admitted to 2 Medical Room 260-. Patient/family oriented to hospital policies and general routines including ID bracelet, bed and alarms, visiting hours, pain management, procedures, bathroom and other care routines, personal items, smoking policy, room service/diet, and visiting hours. Information on how to activate the Rapid Response Team has been discussed. Patient/Family are encouraged to report perceived risks to care and to ask questions if they do not understand what they are told or what they should do.
[2024-09-02] MEDS: ONDANSETRON INJ 4 MG/2 ML VIAL IV PUSH (23:31)
[2024-09-02] MEDS: MORPHINE SULFATE (*CRX) 2 MG/ML INJ IV PUSH (23:31)
[2024-09-03] VITALS (13 sets, daily range): BP systolic 123–155; BP diastolic 59–90; PULSE 71–132; RESP 14–18; TEMP 36.8–36.9; O2SAT 99–100; BMI 11.7
--- NOTE | 2024-09-03 00:08 | PM.IMHP ---
H&P: HPI History of Present Illness Date/Time: 09/03/24 00:08 Chief Complaint: 1. Fall 2. Difficulty ambulating 3. Hip pain Narrative: Nelda Roman is an 88 yo F with a mHx significant for CHF She is currently in hospice and was brought to the ED after sustaining a fall with prolonged immobility; when a wellness check found her on the floor, she on standing was noted to have developed an unstable gait with hip pain. She at baseline seems to be anxious with cognitive impairment and is unable to give information about the circumstances surrounding her presentation. she does not smoke/chew tobacco, drink alcohol or consume recreational drugs. Work-up findings: XR left hip showed a Transcervical left femoral neck fracture with superior displacement. CT head CT C-spine showed no acute abnormality knee x-ray showed no evidence of fracture chest x-ray did show pleural effusions UA: >100 WBC; 3+ LE; -ve nitrite INR 1.2 WBC 14 Hb 11 PLT 152 BUN 40 Cr 1.3 GFR 21 Nelda Roman will be admitted, evaluated and managed for a Review of Systems Review of Systems: ROS unobtainable: Yes unobtainable due to mental status PMFSH Past Medical History Medical History Anxiety disorder, unspecified Bilateral primary osteoarthritis of knee Cardiomyopathy Cholelithiasis s/p cholecystectomy Chronic respiratory failure with hypoxia Congestive heart failure Essential (primary) hypertension History of GI bleed 03/2019 Iron deficiency anemia due to chronic blood loss Paroxysmal atrial fibrillation Tachycardia Type 2 diabetes mellitus without complications Surgical History Surgical History History of appendectomy History of back surgery History of cholecystectomy History of hysterectomy History of knee surgery Family History Family History Mother Family history of lung cancer Hypertension Sibling Family history of diabetes mellitus in first degree relative Family history of malignant neoplasm of breast in first degree relative Grandparent Diabetes mellitus Acute myocardial infarction Other Carcinoma of colon Family history of malignant neoplasm of breast Social History Social History Social History: Patient lives at home alone with daughter occasionally checking in. Wishes her Daughter to be surrogate MDM. She wishes to be DNR. Smoking status: Never smoker Second hand tobacco smoke exposure: No Alcohol intake: never Substance use: never Do You Feel Safe in your Home?: Yes Lack of Transportation: No Lack of Food: Never True Current Housing: I Have Housing Concerned About Future Housing: No Difficulty Paying Gas/Electric Bills: No Difficulty Paying for Meds: No Currently Unemployed: No Education: High School Diploma/GED Difficulty w/ Childcare or Family Care: No Gender identity (if verbalized by the patient): Female Spiritual care concerns: No Meds Home Medications and Allergies Home Medications Medication Instructions Recorded Confirmed Type pantoprazole 40 mg tablet,delayed 40 mg PO QAM #90 tabs 03/05/20 09/02/24 Rx release carvedilol 6.25 mg tablet (Coreg) 6.25 mg PO Q12HR 90 days #180 tabs 09/11/20 09/02/24 Rx escitalopram oxalate 20 mg tablet 20 mg PO DAILY #90 tabs 09/15/20 09/02/24 Rx (Lexapro) alprazolam 0.5 mg tablet 1 mg PO Q4H PRN Anxiety 03/25/21 09/02/24 History acetaminophen 325 mg tablet 650 mg PO Q6H PRN Pain 09/02/24 09/02/24 History bisacodyl 5 mg tablet,delayed 5 mg PO DAILY 09/02/24 09/02/24 History release (Dulcolax (bisacodyl)) furosemide 20 mg tablet 40 mg PO DAILY 09/02/24 09/02/24 History hydrocodone 5 mg-acetaminophen 325 1 tablet PO Q4H PRN Pain 09/02/24 09/02/24 History mg tablet hyoscyamine sulfate 0.125 mg 0.125 mg PO Q4H PRN excess 09/02/24 09/02/24 History tablet (Levsin) secretions meclizine 25 mg tablet (Dramamine 25 mg PO DAILY PRN Dizziness 09/02/24 09/02/24 History (meclizine)) melatonin 3 mg tablet 6 mg PO HS PRN Insomnia 09/02/24 09/02/24 History morphine 20 mg/5 mL (4 mg/mL) oral 5 mg PO Q4H PRN pain/dyspnea 09/02/24 09/02/24 History solution ondansetron HCl 4 mg tablet 4 mg PO Q4H PRN nausea/vomiting 09/02/24 09/02/24 History polyethylene glycol 3350 17 gram 17 g PO DAILY 09/02/24 09/02/24 History oral powder packet (Miralax) sennosides 8.6 mg-docusate sodium 1 tab-cap PO DAILY PRN Constipation 09/02/24 09/02/24 History 50 mg tablet (Senna-S) Allergies Allergy/AdvReac Type Severity Reaction Status Date / Time duloxetine Allergy Severe ENTIRE Verified 09/02/24 19:57 BODY BECAME RED AND HOT W/ WEAKNESS, N/V acetaminophen Allergy Unknown Verified 09/02/24 19:57 hydrocodone Allergy Unknown Verified 09/02/24 19:57 meperidine AdvReac Unknown Confusion Verified 09/02/24 19:57 Vital Signs Vital Signs - 24 hr 09/02/24 19:44 09/02/24 21:23 09/02/24 21:24 Temperature 98.7 F Pulse Rate 116 H 122 H 130 H Respiratory Rate 18 17 31 H Blood Pressure 144/90 H 120/107 H 130/99 H Pulse Oximetry 99 100 99 Oxygen Delivery Room Air Oxygen Flow Rate 09/02/24 22:31 09/02/24 22:36 09/02/24 23:13 Temperature 98.3 F Pulse Rate 140 H 91 Respiratory Rate 18 18 Blood Pressure 136/81 150/97 H Pulse Oximetry 100 100 98 Oxygen Delivery Nasal Cannula Oxygen Flow Rate 3 09/02/24 23:17 Temperature Pulse Rate 91 Respiratory Rate 18 Blood Pressure Pulse Oximetry 98 Oxygen Delivery Nasal Cannula Oxygen Flow Rate 3 Exam Const: General: in distress and uncomfortable HENMT: Mouth: Yes moist mucous membranes and Yes dry mucous membranes Eyes: General: appearance normal, both eyes and all related structures Sclera: sclerae normal Pupils: Equal, round and reactive pupils present Neck: Neck: supple Resp: Effort & Inspection: normal respiratory effort Auscultation: diminished lung sounds GI: GI Palp: Yes Soft to palpation : General: Yes bladder normal to palpation Skin: General skin exam: normal color Neuro: Other: could not assess bob to confused state H&P: Results Labs Labs: Short CBC 09/02/24 Range/Units 20:56 WBC 14.8 H (4.5-10.0) K/mm3 Hgb 11.1 L (12.0-15.0) g/dL Hct 33.2 L (37.0-47.0) % Plt Count 152 (150-375) k/mm3 BMP 09/02/24 20:56 Sodium 139 Potassium 3.2 L Chloride 91 L Carbon Dioxide > 40 H BUN 40 H D Creatinine 1.30 H Glucose 170 H Calcium 9.4 Liver Function 09/02/24 Range/Units 20:56 Total Bilirubin 1.4 H (0.2-1.3) mg/dL AST 35 (14-36) U/L ALT 21 (6-35) U/L Alkaline Phosphatase 81 (38-126) U/L Albumin 3.8 (3.5-5.1) g/dL Urine 09/02/24 Range/Units 21:27 Urine Color Yellow (Yellow) Urine Appearance Cloudy H (Clear) Urine pH 6.0 (5.0-9.0) Ur Specific [place] 1.012 (1.001-1.035) Urine Protein 1+ H (Negative) mg/dL Urine Glucose (UA) Negative (Negative) mg/dL Assessment and Plan Assessment and plan (1) Closed fracture of left hip: Code(s): S72.002A - Fracture of unspecified part of neck of left femur, initial encounter for closed fracture Status: Acute (2) Atrial fibrillation with rapid ventricular response: Code(s): I48.91 - Unspecified atrial fibrillation Status: Acute Plan Acute and principal conditions 1. Fall 2. Left hip fracture 3. A-fib with RVR 4. UTI 5. Physical deconditioning a. Carvedilol b. Will consider Heparin gtt in light of possible surgical repair if orthopedics evaluates c. Ceftriaxone, Urine culture d. PT eval and Rx Chronic and stable conditions 1. Hospice for CHF 2. Vertigo 3. HTN. 4. IMANI 5. Anxiety. Miscelleneous care. VTE prophylaxis. SCDs; HERNANDEZ Nutrition. NPO Hospitalist [facility] Advance Care Plan I have confirmed that the patient's Advanced Care Plan is present, code status is documented, or surrogate decision maker is listed in patient medical record.: Yes Medication Reconciliation I have utilized all available resources to obtain, update and review the patients current medications (includes all prescriptions, OTC, herbals, cannabis, and nutritional supplements).: Yes The patient is not eligible for med reconciliation; the patient is in a emergent medical situation where delaying treatment would jeopardize the patients health.: Yes
[2024-09-03] MEDS: LORazepam INJ (*CRX) 2 MG/ML VIAL 0.5 MG IV PUSH (00:41)
[2024-09-03 06:17] LABS: Basophils Percent Auto 0.3 % (0.2-1.2); Eosinophils Percent Auto 0.1 % (0-4.4); Hematocrit 32.7 % (37.0-47.0); Hemoglobin 10.7 g/dL (12.0-15.0); Immature Granulocyte Absolute 0.04 K/mm3 (0.00-0.031); Immature Granulocyte Percent A 0.4 % (0-0.5); Immature Platelet Fraction Pct 12.1 % (0.9-11.2); Lymphocytes Absolute Auto 0.68 K/mm3 (0.9-3.2); Lymphocytes Percent Auto 6.2 % (18.3-44.2); Mean Corpuscular HGB Conc 32.7 g/dl (32-36); Mean Corpuscular Hemoglobin 31.5 pg (26-34); Mean Corpuscular Volume 96.2 fl (80-100); Mean Platelet Volume 13.7 fl (7.4-10.4); Monocytes Absolute Auto 0.6 K/mm3 (0.1-0.6); Monocytes Percent Auto 5.5 % (2.6-8.5); Neutrophils Absolute Auto 9.6 K/mm3 (1.3-6.7); Neutrophils Percent Auto 87.5 % (45.5-73.1); Platelet Count Result 120 k/mm3 (150-375); Red Cell Distribution Width 14.6 % (11.5-14.5); White Blood Count 10.9 K/mm3 (4.5-10.0)
[2024-09-03 06:32] LABS: Alanine Aminotransferase 20 U/L (6-35); Albumin Level 3.6 g/dL (3.5-5.1); Alkaline Phosphatase 70 U/L (38-126); Aspartate Amino Transferase 32 U/L (14-36); Bilirubin,Total 1.3 mg/dL (0.2-1.3); Blood Urea Nitrogen 39 mg/dL (7-17); Calcium 9.4 mg/dL (8.4-10.2); Carbon Dioxide > 40 mmol/L (22-30); Chloride 93 mmol/L (98-107); Estimated CRCL calculation 13 ml/min; Estimated Glomerular Filt Rate 39; Glucose 131 mg/dL (65-110); Potassium 3.2 mmol/L (3.4-5.0); Sodium 140 mmol/L (137-145)
--- NOTE | 2024-09-03 07:18 | P.PNIM_ITS ---
Progress Note: A&P Assessment and Plan (1) Chronic respiratory failure with hypoxia: Code(s): J96.11 - Chronic respiratory failure with hypoxia Status: Acute Assessment and Plan: Chronic, baseline oxygen supplementation of 3 L NC (2) Multiple falls: Code(s): R29.6 - Repeated falls Status: Acute Assessment and Plan: Patient had a fall of unknown etiology. - Chest XR: Subsegmental bibasilar atelectasis/consolidation. Moderate bilateral pleural effusions. - Knee XR: No acute osseous finding in the left knee. - Hip/pelvis XR: Transcervical left femoral neck fracture with superior displacement. - Head CT: No acute intracranial process. - C spine CT:No acute fracture or traumatic malalignment in the cervical spine. - Remain on bed rest until further decision is made about surgical intervention (3) Closed fracture of left hip: Code(s): S72.002A - Fracture of unspecified part of neck of left femur, initial encounter for closed fracture Status: Acute Assessment and Plan: - Hip/pelvis XR: Transcervical left femoral neck fracture with superior displacement. - Analgesics - DVT ppx - Diet: NPO pending ortho evaluation - Ortho consulted, appreciate recommendations Patient would require a left hip bipolar hip replacement. Dr. Murphy discussed treatment options with family. Family would like to further consider options. Patient may resume diet. Remain on bed rest until further decision is made. Possible surgical intervention tomorrow pending family decision, NPO at midnight. (4) UTI (urinary tract infection): Code(s): N39.0 - Urinary tract infection, site not specified Status: Acute Assessment and Plan: Per patients hospice nurse, she was recently diagnosed with a UTI and finished her course of macrobid on 08/28. - UA: cloudy appearance with 1+ protein, trace non hemolyzed blood, 3+ leukocytes, 3-5 RBC, > 100 WBC, 4+ bacteria. - UC obtained on 09/02: pending - No previous micro to be reviewed - started on Rocephin on 09/02/24 (5) Essential (primary) hypertension: Code(s): I10 - Essential (primary) hypertension Status: Acute Assessment and Plan: Chronic, continue home medications - Carvedilol 6.25 mg BID - Lasix 40 mg daily - Monitor Time Spent With Patient Time with patient: 25 - 35 minutes Subjective Date/time seen: 09/03/24 07:18 Interval history: 88 year old female with past medical history of paroxysmal afib, DM type 2, HTN, CHF, chronic respiratory failure with hypoxia and currently undergoing hospice care for CHF presents to the hospital following a fall. Patient is pleasant lying comfortably in bed with family at bedside. She has no complaints at this time however unsure accuracy as patients is altered at baseline. Per family she has not been complaining about anything to them. Patient evaluated by ortho. Patient would require a left hip bipolar hip replacement. Dr. Murphy discussed treatment options with family. Family would like to further consider options. Possible surgical intervention tomorrow pending family decision, NPO at midnight. Review of Systems Review of Systems: ROS unobtainable: Yes unobtainable due to mental status Exam Narrative: AF HR 73 RR 18 SPO2 100 3L NC BP 155/90 General: female in no acute respiratory distress who is nontoxic appearing, lying semi recumbent in bed. HEENT: Normocephalic. Atraumatic. Extraocular movement intact. Sclera clear and anicteric. No facial asymmetry. Chest: Lungs are clear to auscultation bilaterally. No wheezes or crackles. CV: Heart was regular rate and rhythm. S1-S2. No murmurs, gallops, or rubs. Abd: Abdomen was soft. Nontender. Nondistended. Postive bowel sounds. No organomegaly or masses. Ext: No clubbing, cyanosis, or edema. 2+ DP pulses bilaterally. Left lower extremity externally rotated and shortened. Neuro: Patient is alert. Cranial nerves 2-12 are intact. Speech is clear. Objective Data Vital Signs Vital Signs: Vital Signs - 24 hr 09/02/24 19:44 09/02/24 21:23 09/02/24 21:24 Temperature 98.7 F Pulse Rate 116 H 122 H 130 H Respiratory Rate 18 17 31 H Blood Pressure 144/90 H 120/107 H 130/99 H Pulse Oximetry 99 100 99 Oxygen Delivery Room Air Oxygen Flow Rate 09/02/24 22:31 09/02/24 22:36 09/02/24 23:13 Temperature 98.3 F Pulse Rate 140 H 91 Respiratory Rate 18 18 Blood Pressure 136/81 150/97 H Pulse Oximetry 100 100 98 Oxygen Delivery Nasal Cannula Oxygen Flow Rate 3 09/02/24 23:17 09/03/24 00:29 09/03/24 04:00 Temperature Pulse Rate 91 132 H 79 Respiratory Rate 18 Blood Pressure Pulse Oximetry 98 Oxygen Delivery Nasal Cannula Oxygen Flow Rate 3 09/03/24 06:00 Temperature 98.3 F Pulse Rate 73 Respiratory Rate 18 Blood Pressure 155/90 H Pulse Oximetry 100 Oxygen Delivery Oxygen Flow Rate Intake/Output Intake/Output: Intake & Output 08/31/24 09/01/24 09/02/24 09/03/24 23:59 23:59 23:59 23:59 Output Total 700 Balance -700 Meds/Results Medications: Active Medications Generic Name Dose Route Start Last Admin Trade Name Freq PRN Reason Stop Dose Admin Alprazolam 1 mg 09/03/24 05:51 Alprazolam (*Crx) 0.5 Mg Tablet PO Q4H PRN Anxiety Bisacodyl 10 mg 09/03/24 00:05 Bisacodyl 10 Mg Suppository RECTAL ONCE PRN Constipation Carvedilol 6.25 mg 09/03/24 09:00 Carvedilol 6.25 Mg Tablet PO Q12HR [facility] Docusate Sodium 100 mg 09/03/24 09:00 Docusate Sodium 100 Mg Capsule PO BID [facility] Heparin Sodium (Porcine) 5,000 units 09/03/24 09:00 Heparin Sodium 5,000 Units/Ml Vial SUB-Q Q12HR [facility] Ceftriaxone Sodium 1 gm in 50 mls @ 100 mls/hr 09/03/24 06:00 09/03/24 07:01 Rocephin 1 Gm/Ns 50 Ml IVPB 100 mls/hr Q24H HERNANDEZ Administration Morphine Sulfate 2 mg 09/02/24 21:59 09/02/24 23:31 Morphine Sulfate (*Crx) 2 Mg/Ml Inj IV PUSH 2 mg Q2H PRN Administration Pain Rated 7-10 Ondansetron HCl 4 mg 09/02/24 21:59 09/02/24 23:31 Ondansetron Inj 4 Mg/2 Ml Vial IV PUSH 4 mg Q4H PRN Administration Nausea Radiology Results: ITS Impressions Knee X-Ray 09/02/24 20:20 IMPRESSION: No acute osseous finding in the left knee. Chest X-Ray 09/02/24 20:22 IMPRESSION: Subsegmental bibasilar atelectasis/consolidation. Moderate bilateral pleural effusions. Hip/Pelvis X-Ray 09/02/24 20:23 IMPRESSION: Transcervical left femoral neck fracture with superior displacement. Head CT 09/02/24 20:40 IMPRESSION: No acute intracranial process. Cervical Spine CT 09/02/24 20:41 IMPRESSION: No acute fracture or traumatic malalignment in the cervical spine. Labs Labs: Laboratory Results - last 24 hr 09/02/24 09/02/24 09/03/24 20:56 21:27 05:45 WBC 14.8 H 10.9 H RBC 3.51 L 3.40 L Hgb 11.1 L 10.7 L Hct 33.2 L 32.7 L MCV 94.6 96.2 MCH 31.6 31.5 MCHC 33.4 32.7 RDW 14.6 H 14.6 H Plt Count 152 120 L MPV 13.3 H 13.7 H Immature Gran % (Auto) 0.5 0.4 Neut % (Auto) 93.1 H 87.5 H Lymph % (Auto) 2.2 L 6.2 L C[place]y % (Auto) 3.9 5.5 Eos % (Auto) 0.0 0.1 Baso % (Auto) 0.3 0.3 Lymph # (Auto) 0.32 L 0.68 L [place]y # (Auto) 0.6 0.6 Eos # (Auto) 0.0 0.0 Baso # (Auto) 0.0 0.0 Abs Immat Gran (auto) 0.08 H 0.04 H Absolute Neuts (auto) 13.8 H 9.6 H Absolute Nucleated RBC 0.000 0.000 Nucleated RBC % 0.0 0.0 Platelet Estimate Adequate Large Platelets Present % Immature Plt Fraction 11.2 12.1 H Anisocytosis 1+ Schistocytes None seen PT 15.8 H INR 1.2 APTT 28.8 Sodium 139 140 Potassium 3.2 L 3.2 L Chloride 91 L 93 L Carbon Dioxide > 40 H > 40 H Anion Gap BUN 40 H D 39 H Creatinine 1.30 H 1.30 H Estim Creat Clear Calc 21 13 Estimated GFR 39 L 39 L Glucose 170 H 131 H Calcium 9.4 9.4 Total Bilirubin 1.4 H 1.3 AST 35 32 ALT 21 20 Alkaline Phosphatase 81 70 Total Protein 7.0 7.0 Albumin 3.8 3.6 Urine Color Yellow Urine Appearance Cloudy H Urine pH 6.0 Ur Specific [place] 1.012 Urine Protein 1+ H Urine Glucose (UA) Negative Urine Ketones Negative Ur Blood (Man) Non-hemolyzed trace H Urine Nitrate Negative Urine Bilirubin Negative Urine Urobilinogen 1.0 Leukocyte Esterase Rfl 3+ H Urine RBC 3-5 H Urine WBC >100 H Ur Squamous Epith Cells Occasional Urine Bacteria 4+ H Urine Casts 3-5 Quality VTE Prophylaxis VTE prophylaxis: pharmacologic ordered
[2024-09-03] MEDS: KCL 20 MEQ/SW 100 ML 100 ML 50 MEQ IVPB (08:08)
--- NOTE | 2024-09-03 09:04 | P.CONOP_ITS ---
Assessment and Plan Assessment and plan (1) Closed fracture of left hip: Qualifiers: Encounter type: initial encounter Qualified Code(s): S72.002A - Fracture of unspecified part of neck of left femur, initial encounter for closed fracture Code(s): S72.002A - Fracture of unspecified part of neck of left femur, initial encounter for closed fracture Status: Acute Assessment and Plan: Radiographs of the left hip reveal a transcervical left femoral neck fracture with superior displacement. Discussed with the patient's POA via telephone. The fracture type and injury as well as radiographs discussed with the family. Operative and nonoperative treatment options reviewed. Dr. Murphy has also discussed surgical and nonoperative treatment options with the family. Patient would require a left hip bipolar hip replacement. They would like to further consider at this time. Patient may resume diet. Remain on bed rest until further decision is made. Possible surgical intervention tomorrow pending family decision, NPO at midnight. Continue pain control. Limit narcotics. Plan Reviewed history, exam, radiographs and current labs with attending MD and covering surgeon, Dr. Murphy, who agrees with current plan as indicated above. No further recommendations from Dr. Murphy at this time. History of Present Illness HPI Consult date: 09/03/24 Chief complaint: Left femoral neck fracture Narrative: 88-year-old female with a history of CHF on hospice for 3.5 years currently residing at home. Per the POA, the patient has been doing well overall for the last 3 years; however, over the last 6 months she has been having increased falls and confusion/hallucinations at times. She is currently A&O x 1-2. She w as admitted after a fall at home which resulted in a left hip fracture. Radiographs of the left hip reveal a transcervical left femoral neck fracture with superior displacement. Patient was admitted for further evaluation orthopedic consult. Review of Systems Review of Systems: ROS unobtainable: Yes unobtainable due to mental status PMFSH Past Medical History Medical History Anxiety disorder, unspecified Bilateral primary osteoarthritis of knee Cardiomyopathy Cholelithiasis s/p cholecystectomy Chronic respiratory failure with hypoxia Congestive heart failure Essential (primary) hypertension History of GI bleed 03/2019 Iron deficiency anemia due to chronic blood loss Paroxysmal atrial fibrillation Tachycardia Type 2 diabetes mellitus without complications Surgical History Surgical History History of appendectomy History of back surgery History of cholecystectomy History of hysterectomy History of knee surgery Family History Family History Mother Family history of lung cancer Hypertension Sibling Family history of diabetes mellitus in first degree relative Family history of malignant neoplasm of breast in first degree relative Grandparent Diabetes mellitus Acute myocardial infarction Other Carcinoma of colon Family history of malignant neoplasm of breast Social History Social History Social History: Patient lives at home alone with daughter occasionally checking in. Wishes her Daughter to be surrogate MDM. She wishes to be DNR. Smoking status: Never smoker Second hand tobacco smoke exposure: No Alcohol intake: never Substance use: never Do You Feel Safe in your Home?: Yes Lack of Transportation: No Lack of Food: Never True Current Housing: I Have Housing Concerned About Future Housing: No Difficulty Paying Gas/Electric Bills: No Difficulty Paying for Meds: No Currently Unemployed: No Education: High School Diploma/GED Difficulty w/ Childcare or Family Care: No Gender identity (if verbalized by the patient): Female Spiritual care concerns: No Meds Home Medications and Allergies Home Medications Medication Instructions Recorded Confirmed Type pantoprazole 40 mg tablet,delayed 40 mg PO QAM #90 tabs 03/05/20 09/02/24 Rx release carvedilol 6.25 mg tablet (Coreg) 6.25 mg PO Q12HR 90 days #180 tabs 09/11/20 09/02/24 Rx escitalopram oxalate 20 mg tablet 20 mg PO DAILY #90 tabs 09/15/20 09/02/24 Rx (Lexapro) alprazolam 0.5 mg tablet 1 mg PO Q4H PRN Anxiety 03/25/21 09/02/24 History acetaminophen 325 mg tablet 650 mg PO Q6H PRN Pain 09/02/24 09/02/24 History bisacodyl 5 mg tablet,delayed 5 mg PO DAILY 09/02/24 09/02/24 History release (Dulcolax (bisacodyl)) furosemide 20 mg tablet 40 mg PO DAILY 09/02/24 09/02/24 History hydrocodone 5 mg-acetaminophen 325 1 tablet PO Q4H PRN Pain 09/02/24 09/02/24 History mg tablet hyoscyamine sulfate 0.125 mg 0.125 mg PO Q4H PRN excess 09/02/24 09/02/24 History tablet (Levsin) secretions meclizine 25 mg tablet (Dramamine 25 mg PO DAILY PRN Dizziness 09/02/24 09/02/24 History (meclizine)) melatonin 3 mg tablet 6 mg PO HS PRN Insomnia 09/02/24 09/02/24 History morphine 20 mg/5 mL (4 mg/mL) oral 5 mg PO Q4H PRN pain/dyspnea 09/02/24 09/02/24 History solution ondansetron HCl 4 mg tablet 4 mg PO Q4H PRN nausea/vomiting 09/02/24 09/02/24 History polyethylene glycol 3350 17 gram 17 g PO DAILY 09/02/24 09/02/24 History oral powder packet (Miralax) sennosides 8.6 mg-docusate sodium 1 tab-cap PO DAILY PRN Constipation 09/02/24 09/02/24 History 50 mg tablet (Senna-S) Allergies Allergy/AdvReac Type Severity Reaction Status Date / Time duloxetine Allergy Severe ENTIRE Verified 09/02/24 19:57 BODY BECAME RED AND HOT W/ WEAKNESS, N/V acetaminophen Allergy Unknown Verified 09/02/24 19:57 hydrocodone Allergy Unknown Verified 09/02/24 19:57 meperidine AdvReac Unknown Confusion Verified 09/02/24 19:57 Vital Signs Vital Signs - 24 hr 09/02/24 19:44 09/02/24 21:23 09/02/24 21:24 Temperature 37.1 C Pulse Rate 116 H 122 H 130 H Respiratory Rate 18 17 31 H Blood Pressure 144/90 H 120/107 H 130/99 H Pulse Oximetry 99 100 99 Oxygen Delivery Room Air Oxygen Flow Rate 09/02/24 22:31 09/02/24 22:36 09/02/24 23:13 Temperature 36.8 C Pulse Rate 140 H 91 Respiratory Rate 18 18 Blood Pressure 136/81 150/97 H Pulse Oximetry 100 100 98 Oxygen Delivery Nasal Cannula Oxygen Flow Rate 3 09/02/24 23:17 09/03/24 00:29 09/03/24 04:00 Temperature Pulse Rate 91 132 H 79 Respiratory Rate 18 Blood Pressure Pulse Oximetry 98 Oxygen Delivery Nasal Cannula Oxygen Flow Rate 3 09/03/24 06:00 Temperature 36.8 C Pulse Rate 73 Respiratory Rate 18 Blood Pressure 155/90 H Pulse Oximetry 100 Oxygen Delivery Oxygen Flow Rate Exam Const: General: cooperative, comfortable and average body habitus Nutritional Appearance: average body habitus HENMT: Head: normal to inspection and No palpable skull fracture present Ears: hearing grossly normal bilaterally and external ears normal Face/Nose/Sinus: Normal external nose present, Normal nares present, Normal nasal mucous membranes and turbinates present and normal facial exam Face and sinus: normal facial exam Mouth: Yes Normal oral and palatal mucosa present Teeth and gingiva: dentition normal Eyes: General: appearance normal, both eyes and all related structures Sclera: sclerae normal Pupils: Equal, round and reactive pupils present Neck: Neck: normal visual inspection and full ROM Resp: Effort & Inspection: normal respiratory effort and able to speak in complete sentences Cardio: Jugular venous distension: no JVD Rate: regular rate Rhythm: regular rhythm GI: Inspection: normal to inspection GI Palp: No abdominal tenderness Urinary Catheter: Urinary Catheter: patent and draining and urine clear Back/Spine/Pelvis: Back: no CVA tenderness Skin: General skin exam: normal color and no rashes or lesions noted Wounds: no wounds Neuro: General: No gait normal (NWB ) and Unable to assess gait (bedrest ) Cranial nerves: Yes Equal, round and reactive pupils present Cognition (Neuro): normal cognition Speech: normal speech Gait exam (Neuro): Unable to assess gait (bedrest ) Sensory Exam: normal sensation Extrem: Right upper extremity: normal to inspection, full ROM and normal capillary refill Left upper extremity: normal to inspection, full ROM and normal capillary refill Right lower extremity: normal to inspection, full ROM, normal capillary refill, hip/thigh Details: normal to inspection and normal ROM; no tenderness and no swelling and knee Details: normal to inspection and normal ROM; no tenderness and no swelling Left lower extremity: hip/thigh Details: abnormal to inspection Details: foreshortened and externally rotated, tenderness Location: of the hip Location: laterally, anteromedially and over the great trochanter, swelling Location: of the hip and of the proximal upper leg and abnormal ROM ( Limited due to fracture); ROM abnormal ( Range of motion strength testing deferred due to fracture.), ankle ( positive ankle dorsiflexion /plantar flexion) Details: normal to inspection and no edema; no tenderness and no swelling and foot Details: normal capillary refill, vascular exam Details: dorsalis pedis pulse present and motor-sensory exam light-touch normal Results Labs 09/03/24 05:45 09/03/24 05:45 Labs: Abnormal lab results 09/02/24 09/02/24 09/03/24 Range/Units 20:56 21:27 05:45 WBC 14.8 H 10.9 H (4.5-10.0) K/mm3 RBC 3.51 L 3.40 L (4.2-5.4) M/mm3 Hgb 11.1 L 10.7 L (12.0-15.0) g/dL Hct 33.2 L 32.7 L (37.0-47.0) % RDW 14.6 H 14.6 H (11.5-14.5) % Plt Count 120 L (150-375) k/mm3 MPV 13.3 H 13.7 H (7.4-10.4) fl Neut % (Auto) 93.1 H 87.5 H (45.5-73.1) % Lymph % (Auto) 2.2 L 6.2 L (18.3-44.2) % Lymph # (Auto) 0.32 L 0.68 L (0.9-3.2) K/mm3 Abs Immat Gran (auto) 0.08 H 0.04 H (0.00-0.031) K/mm3 Absolute Neuts (auto) 13.8 H 9.6 H (1.3-6.7) K/mm3 % Immature Plt Fraction 12.1 H (0.9-11.2) % PT 15.8 H (11.1-14.7) Seconds Potassium 3.2 L 3.2 L (3.4-5.0) mmol/L Chloride 91 L 93 L (98-107) mmol/L Carbon Dioxide > 40 H > 40 H (22-30) mmol/L BUN 40 H D 39 H (7-17) mg/dL Creatinine 1.30 H 1.30 H (0.7-1.0) mg/dL Estimated GFR 39 L 39 L (59 - ) Glucose 170 H 131 H (65-110) mg/dL Total Bilirubin 1.4 H (0.2-1.3) mg/dL Urine Appearance Cloudy H (Clear) Urine Protein 1+ H (Negative) mg/dL Ur Blood (Man) Non-hemolyzed trace H (Negative) Leukocyte Esterase Rfl 3+ H (Negative) ROSA/UL Urine RBC 3-5 H (0-2) /hpf Urine WBC >100 H (0-3) /hpf Urine Bacteria 4+ H /hpf H & H 09/02/24 09/03/24 Range/Units 20:56 05:45 Hgb 11.1 L 10.7 L (12.0-15.0) g/dL Hct 33.2 L 32.7 L (37.0-47.0) % Coagulation 09/02/24 Range/Units 20:56 INR 1.2 All other labs normal.
[2024-09-03] MEDS: DOCUSATE SODIUM 100 MG CAPSULE PO (09:41)
[2024-09-03] MEDS: FUROSEMIDE 40 MG TABLET PO (09:41)
[2024-09-03] MEDS: carvediloL 6.25 MG TABLET PO ×2 (09:42→20:27)
[2024-09-03] MEDS: ESCITALOPRAM OXALATE 10 MG TABLET 20 MG PO (09:42)
[2024-09-03] MEDS: PANTOPRAZOLE 40 MG TABLET PO (09:42)
[2024-09-03] MEDS: MORPHINE SULFATE (*CRX) 2 MG/ML INJ IV PUSH (17:02)
[2024-09-04] VITALS (13 sets, daily range): BP systolic 85–142; BP diastolic 57–64; PULSE 68–98; RESP 16–18; TEMP 36.2–36.8; O2SAT 78–100; BMI 11.2
[2024-09-04] MEDS: MORPHINE SULFATE (*CRX) 2 MG/ML INJ IV PUSH ×2 (05:45→15:26)
[2024-09-04 06:15] LABS: Basophils Percent Auto 0.3 % (0.2-1.2); Eosinophils Absolute Auto 0.1 K/mm3 (0-0.3); Eosinophils Percent Auto 1.1 % (0-4.4); Hemoglobin 10.1 g/dL (12.0-15.0); Immature Granulocyte Absolute 0.06 K/mm3 (0.00-0.031); Immature Granulocyte Percent A 0.6 % (0-0.5); Immature Platelet Fraction Pct 12.3 % (0.9-11.2); Lymphocytes Absolute Auto 0.66 K/mm3 (0.9-3.2); Lymphocytes Percent Auto 6.6 % (18.3-44.2); Mean Corpuscular HGB Conc 32.6 g/dl (32-36); Mean Corpuscular Hemoglobin 31.7 pg (26-34); Mean Corpuscular Volume 97.2 fl (80-100); Mean Platelet Volume 13.6 fl (7.4-10.4); Monocytes Absolute Auto 0.4 K/mm3 (0.1-0.6); Monocytes Percent Auto 4.1 % (2.6-8.5); Neutrophils Absolute Auto 8.8 K/mm3 (1.3-6.7); Neutrophils Percent Auto 87.3 % (45.5-73.1); Platelet Count Result 114 k/mm3 (150-375); Red Blood Count 3.19 M/mm3 (4.2-5.4); Red Cell Distribution Width 14.8 % (11.5-14.5)
[2024-09-04 06:31] LABS: Alanine Aminotransferase 19 U/L (6-35); Albumin Level 3.2 g/dL (3.5-5.1); Alkaline Phosphatase 64 U/L (38-126); Aspartate Amino Transferase 34 U/L (14-36); Bilirubin,Total 1.1 mg/dL (0.2-1.3); Blood Urea Nitrogen 45 mg/dL (7-17); Carbon Dioxide > 40 mmol/L (22-30); Chloride 95 mmol/L (98-107); Estimated CRCL calculation 12 ml/min; Estimated Glomerular Filt Rate 36; Glucose 89 mg/dL (65-110); Potassium 3.3 mmol/L (3.4-5.0); Sodium 143 mmol/L (137-145)
[2024-09-04] MEDS: carvediloL 6.25 MG TABLET PO ×2 (08:41→21:45)
[2024-09-04] MEDS: PANTOPRAZOLE 40 MG TABLET PO (08:41)
[2024-09-04] MEDS: ESCITALOPRAM OXALATE 10 MG TABLET 20 MG PO (08:42)
--- NOTE | 2024-09-04 08:42 | PM.IMPN ---
Progress Note: A&P Assessment and Plan (1) Chronic respiratory failure with hypoxia: Code(s): J96.11 - Chronic respiratory failure with hypoxia Status: Acute Assessment and Plan: Chronic, baseline oxygen supplementation of 3 L NC (2) Multiple falls: Code(s): R29.6 - Repeated falls Status: Acute Assessment and Plan: Patient had a fall of unknown etiology. - Chest XR: Subsegmental bibasilar atelectasis/consolidation. Moderate bilateral pleural effusions. - Knee XR: No acute osseous finding in the left knee. - Hip/pelvis XR: Transcervical left femoral neck fracture with superior displacement. - Head CT: No acute intracranial process. - C spine CT:No acute fracture or traumatic malalignment in the cervical spine. - Remain on bed rest until further decision is made about surgical intervention (3) Closed fracture of left hip: Qualifiers: Encounter type: initial encounter Qualified Code(s): S72.002A - Fracture of unspecified part of neck of left femur, initial encounter for closed fracture Code(s): S72.002A - Fracture of unspecified part of neck of left femur, initial encounter for closed fracture Status: Acute Assessment and Plan: - Hip/pelvis XR: Transcervical left femoral neck fracture with superior displacement. - Analgesics - DVT ppx - Diet: NPO pending ortho evaluation - Ortho consulted, appreciate recommendations Patient would require a left hip bipolar hip replacement. Dr. Murphy discussed treatment options with family. Plan for surgery on 09/05 NPO at midnight (4) UTI (urinary tract infection): Code(s): N39.0 - Urinary tract infection, site not specified Status: Acute Assessment and Plan: Per patients hospice nurse, she was recently diagnosed with a UTI and finished her course of macrobid on 08/28. - UA: cloudy appearance with 1+ protein, trace non hemolyzed blood, 3+ leukocytes, 3-5 RBC, > 100 WBC, 4+ bacteria. - UC obtained on 09/02: pending - No previous micro to be reviewed - started on Rocephin on 09/02/24 (5) Essential (primary) hypertension: Code(s): I10 - Essential (primary) hypertension Status: Acute Assessment and Plan: Chronic, continue home medications - Carvedilol 6.25 mg BID - Lasix 40 mg daily - Monitor Time Spent With Patient Time with patient: 25 - 35 minutes Subjective Date/time seen: 09/04/24 08:42 Interval history: 88 year old female with past medical history of paroxysmal afib, DM type 2, HTN, CHF, chronic respiratory failure with hypoxia and currently undergoing hospice care for CHF presents to the hospital following a fall. Patient is pleasant with family at bedside. She is more alert today and able hold conversation. She has no complaints denies chest pain, shortness a breath, nausea/ vomiting, and abdominal pain. She also denies urinary symptoms. States her back pain/hip pain is currently well controlled on current regimen. Plan is for surgery tomorrow with Dr. Murphy. Review of Systems Review of Systems: All systems reviewed & are unremarkable except as noted in HPI and below Exam Narrative: AF HR 83 RR 18 SPO2 95 3L NC BP 142/64 General: Female in no acute respiratory distress who is nontoxic appearing, lying semi recumbent in bed. HEENT: Normocephalic. Atraumatic. Extraocular movement intact. Sclera clear and anicteric. No facial asymmetry. Chest: Lungs are clear to auscultation bilaterally. No wheezes or crackles. CV: Heart was regular rate and rhythm. S1-S2. No murmurs, gallops, or rubs. Abd: Abdomen was soft. Nontender. Nondistended. Positive bowel sounds. No organomegaly or masses. Ext: No clubbing, cyanosis, or edema. 2+ DP pulses bilaterally. Left lower extremity externally rotated and shortened. Neuro: Patient is alert. Cranial nerves 2-12 are intact. Speech is clear. Objective Data Vital Signs Vital Signs: Vital Signs - 24 hr 09/03/24 09:36 09/03/24 09:42 09/03/24 12:01 Temperature Pulse Rate 95 71 Respiratory Rate Blood Pressure Pulse Oximetry 99 Oxygen Delivery Nasal Cannula Oxygen Flow Rate 3 Fraction of Inspired Oxygen 32 09/03/24 14:00 09/03/24 16:03 09/03/24 20:07 Temperature 98.5 F 98.2 F Pulse Rate 71 92 105 H Respiratory Rate 14 18 Blood Pressure 123/59 L 125/60 Pulse Oximetry 99 100 Oxygen Delivery Oxygen Flow Rate Fraction of Inspired Oxygen 09/03/24 20:27 09/03/24 20:00 09/03/24 20:00 Temperature Pulse Rate 96 93 Respiratory Rate Blood Pressure Pulse Oximetry 100 Oxygen Delivery Nasal Cannula Oxygen Flow Rate 3 Fraction of Inspired Oxygen 09/04/24 00:00 09/04/24 03:38 09/04/24 04:00 Temperature 98.2 F Pulse Rate 73 68 71 Respiratory Rate 18 Blood Pressure 142/64 H Pulse Oximetry 100 Oxygen Delivery Oxygen Flow Rate Fraction of Inspired Oxygen 09/04/24 08:03 09/04/24 08:03 Temperature Pulse Rate 73 Respiratory Rate 18 Blood Pressure Pulse Oximetry 100 Oxygen Delivery Nasal Cannula Oxygen Flow Rate 3 Fraction of Inspired Oxygen Intake/Output Intake/Output: Intake & Output 09/01/24 09/02/24 09/03/24 09/04/24 23:59 23:59 23:59 23:59 Intake Total 160 50 Output Total 1130 250 Balance -970 -200 Meds/Results Medications: Active Medications Generic Name Dose Route Start Last Admin Trade Name Freq PRN Reason Stop Dose Admin Alprazolam 1 mg 09/03/24 05:51 Alprazolam (*Crx) 0.5 Mg Tablet PO Q4H PRN Anxiety Bisacodyl 10 mg 09/03/24 00:05 Bisacodyl 10 Mg Suppository RECTAL ONCE PRN Constipation Carvedilol 6.25 mg 09/03/24 09:00 09/03/24 20:27 Carvedilol 6.25 Mg Tablet PO 6.25 mg Q12HR [facility] Administration Docusate Sodium 100 mg 09/03/24 21:00 09/04/24 08:39 Docusate Sodium Liq 100 Mg/10 Ml Udc PO Not Given Q12HR [facility] Escitalopram Oxalate 20 mg 09/03/24 09:00 09/03/24 09:42 Escitalopram Oxalate 10 Mg Tablet PO 20 mg DAILY HERNANDEZ Administration Furosemide 40 mg 09/03/24 09:00 09/04/24 08:39 Furosemide 40 Mg Tablet PO Not Given DAILY [facility] Heparin Sodium (Porcine) 5,000 units 09/03/24 09:00 09/04/24 08:38 Heparin Sodium 5,000 Units/Ml Vial SUB-Q Not Given Q12HR [facility] Ceftriaxone Sodium 1 gm in 50 mls @ 100 mls/hr 09/03/24 06:00 09/04/24 05:47 Rocephin 1 Gm/Ns 50 Ml IVPB Infused Q24H [facility] Infusion Morphine Sulfate 2 mg 09/02/24 21:59 09/04/24 05:45 Morphine Sulfate (*Crx) 2 Mg/Ml Inj IV PUSH 2 mg Q2H PRN Administration Pain Rated 7-10 Ondansetron HCl 4 mg 09/02/24 21:59 09/02/24 23:31 Ondansetron Inj 4 Mg/2 Ml Vial IV PUSH 4 mg Q4H PRN Administration Nausea Pantoprazole Sodium 40 mg 09/03/24 09:00 09/03/24 09:42 Pantoprazole 40 Mg Tablet PO 40 mg QAM HERNANDEZ Administration Radiology Results: ITS Impressions Knee X-Ray 09/02/24 20:20 IMPRESSION: No acute osseous finding in the left knee. Chest X-Ray 09/02/24 20:22 IMPRESSION: Subsegmental bibasilar atelectasis/consolidation. Moderate bilateral pleural effusions. Hip/Pelvis X-Ray 09/02/24 20:23 IMPRESSION: Transcervical left femoral neck fracture with superior displacement. Head CT 09/02/24 20:40 IMPRESSION: No acute intracranial process. Cervical Spine CT 09/02/24 20:41 IMPRESSION: No acute fracture or traumatic malalignment in the cervical spine. Labs Labs: Laboratory Results - last 24 hr 09/04/24 05:50 WBC 10.0 RBC 3.19 L Hgb 10.1 L Hct 31.0 L MCV 97.2 MCH 31.7 MCHC 32.6 RDW 14.8 H Plt Count 114 L MPV 13.6 H Immature Gran % (Auto) 0.6 H Neut % (Auto) 87.3 H Lymph % (Auto) 6.6 L [place] % (Auto) 4.1 Eos % (Auto) 1.1 Baso % (Auto) 0.3 Lymph # (Auto) 0.66 L [place] # (Auto) 0.4 Eos # (Auto) 0.1 Baso # (Auto) 0.0 Abs Immat Gran (auto) 0.06 H Absolute Neuts (auto) 8.8 H Absolute Nucleated RBC 0.000 Nucleated RBC % 0.0 % Immature Plt Fraction 12.3 H Sodium 143 Potassium 3.3 L Chloride 95 L Carbon Dioxide > 40 H Anion Gap BUN 45 H Creatinine 1.40 H Estim Creat Clear Calc 12 Estimated GFR 36 L Glucose 89 Calcium 9.0 Total Bilirubin 1.1 AST 34 ALT 19 Alkaline Phosphatase 64 Total Protein 6.0 L Albumin 3.2 L Quality VTE Prophylaxis VTE prophylaxis: pharmacologic ordered
--- NOTE | 2024-09-04 09:39 | P.PNOP_ITS ---
Progress Note: A&P Assessment and Plan (1) Closed fracture of left hip: Qualifiers: Encounter type: initial encounter Qualified Code(s): S72.002A - Fracture of unspecified part of neck of left femur, initial encounter for closed fracture Code(s): S72.002A - Fracture of unspecified part of neck of left femur, initial encounter for closed fracture Status: Acute Assessment and Plan: Radiographs of the left hip reveal a transcervical left femoral neck fracture with superior displacement. Discussed with the patient's POA today. The fracture type and injury as well as radiographs discussed with the family. Operative and nonoperative treatment options reviewed. Dr. Murphy has also discussed surgical and nonoperative treatment options with the family. Patient would require a left hip bipolar hip replacement. POA would like to proceed at this time. Risks of surgery including but not limited to neurovascular damage, wound complications, blood clot, pulmonary embolus, stroke, myocardial infarction, anesthetic risks up to and including were reviewed. Continued pain and possible dysfunction were explained. No guarantees were offered. The patient understands and wishes to proceed. Plan: Left Hip Bipolar by Dr. Murphy Patient may resume diet today if approved by medicine team. NPO at midnight. Bedrest. Obtain consent. Pain control. Limit narcotics. Ice. Plan Reviewed history, exam, radiographs and current labs with attending MD and covering surgeon, Dr. Murphy, who agrees with current plan as indicated above. No further recommendations from Dr. Murphy at this time. Subjective Subjective Date/Time Seen: 09/04/24 09:39 Interval history: Patient awake. Alert to location but disoriented to person, time and situation. Patient winces in pain when being moved due to the left hip fracture. POA, Carmela at bedside. Review of Systems Review of Systems: ROS unobtainable: Yes unobtainable due to mental status Exam Const: General: cooperative and comfortable Nutritional Appearance: average body habitus HENMT: Head: normal to inspection Ears: hearing grossly normal bilaterally and external ears normal Face/Nose/Sinus: Normal external nose present, Normal nares present, Normal nasal mucous membranes and turbinates present and normal facial exam Face and sinus: normal facial exam Mouth: Yes Normal oral and palatal mucosa present Teeth and gingiva: dentition normal Eyes: General: appearance normal, both eyes and all related structures Sclera: sclerae normal Pupils: Equal, round and reactive pupils present Neck: Neck: normal visual inspection and full ROM Resp: Effort & Inspection: normal respiratory effort and able to speak in complete sentences Cardio: Jugular venous distension: no JVD Rate: regular rate Rhythm: regular rhythm GI: Inspection: normal to inspection GI Palp: No abdominal tenderness Urinary Catheter: Urinary Catheter: patent and draining and urine clear Skin: General skin exam: normal color and no rashes or lesions noted Wounds: no wounds Neuro: General: No gait normal (NWB ) and Unable to assess gait (bedrest ) Cranial nerves: Yes Equal, round and reactive pupils present Cognition (Neuro): normal cognition Speech: normal speech Gait exam (Neuro): Unable to assess gait (bedrest ) Sensory Exam: normal sensation Extrem: Right upper extremity: normal to inspection, full ROM and normal capillary refill Left upper extremity: normal to inspection, full ROM and normal capillary refill Right lower extremity: normal to inspection, full ROM, normal capillary refill, hip/thigh Details: normal to inspection and normal ROM; no tenderness and no swelling and knee Details: normal to inspection and normal ROM; no tenderness and no swelling Left lower extremity: hip/thigh Details: abnormal to inspection Details: foreshortened and externally rotated, tenderness Location: of the hip Location: laterally, anteromedially and over the great trochanter, swelling Location: of the hip and of the proximal upper leg and abnormal ROM ( Limited due to fracture); ROM abnormal ( Range of motion strength testing deferred due to fracture.), ankle ( positive ankle dorsiflexion /plantar flexion) Details: normal to inspection and no edema; no tenderness and no swelling and foot Details: normal capillary refill, vascular exam Details: dorsalis pedis pulse present and motor-sensory exam light-touch normal Objective Data Vital Signs Vital Signs: Vital Signs - 24 hr 09/03/24 09:42 09/03/24 12:01 09/03/24 14:00 Temperature 36.9 C Pulse Rate 95 71 71 Respiratory Rate 14 Blood Pressure 123/59 L Pulse Oximetry 99 Oxygen Delivery Oxygen Flow Rate 09/03/24 16:03 09/03/24 20:07 09/03/24 20:27 Temperature 36.8 C Pulse Rate 92 105 H 96 Respiratory Rate 18 Blood Pressure 125/60 Pulse Oximetry 100 Oxygen Delivery Oxygen Flow Rate 09/03/24 20:00 09/03/24 20:00 09/04/24 00:00 Temperature Pulse Rate 93 73 Respiratory Rate Blood Pressure Pulse Oximetry 100 Oxygen Delivery Nasal Cannula Oxygen Flow Rate 3 09/04/24 03:38 09/04/24 04:00 09/04/24 08:03 Temperature 36.8 C Pulse Rate 68 71 Respiratory Rate 18 18 Blood Pressure 142/64 H Pulse Oximetry 100 100 Oxygen Delivery Nasal Cannula Oxygen Flow Rate 3 09/04/24 08:03 09/04/24 08:41 09/04/24 09:17 Temperature Pulse Rate 73 76 Respiratory Rate Blood Pressure Pulse Oximetry 98 Oxygen Delivery Nasal Cannula Oxygen Flow Rate 3 09/04/24 09:31 Temperature Pulse Rate Respiratory Rate Blood Pressure Pulse Oximetry 78 L Oxygen Delivery Room Air Oxygen Flow Rate Intake/Output Intake/Output: Intake & Output 09/01/24 09/02/24 09/03/24 09/04/24 23:59 23:59 23:59 23:59 Intake Total 160 50 Output Total 1130 250 Balance -970 -200 Meds/Results Medications: Active Medications Generic Name Dose Route Start Last Admin Trade Name Freq PRN Reason Stop Dose Admin Alprazolam 1 mg 09/03/24 05:51 Alprazolam (*Crx) 0.5 Mg Tablet PO Q4H PRN Anxiety Bisacodyl 10 mg 09/03/24 00:05 Bisacodyl 10 Mg Suppository RECTAL ONCE PRN Constipation Carvedilol 6.25 mg 09/03/24 09:00 09/04/24 08:41 Carvedilol 6.25 Mg Tablet PO 6.25 mg Q12HR HERNANDEZ Administration Docusate Sodium 100 mg 09/03/24 21:00 09/04/24 08:39 Docusate Sodium Liq 100 Mg/10 Ml Udc PO Not Given Q12HR [facility] Escitalopram Oxalate 20 mg 09/03/24 09:00 09/04/24 08:42 Escitalopram Oxalate 10 Mg Tablet PO 20 mg DAILY HERNANDEZ Administration Furosemide 40 mg 09/03/24 09:00 09/04/24 08:39 Furosemide 40 Mg Tablet PO Not Given DAILY [facility] Heparin Sodium (Porcine) 5,000 units 09/03/24 09:00 09/04/24 08:38 Heparin Sodium 5,000 Units/Ml Vial SUB-Q Not Given Q12HR HERNANDEZ Ceftriaxone Sodium 1 gm in 50 mls @ 100 mls/hr 09/03/24 06:00 09/04/24 05:47 Rocephin 1 Gm/Ns 50 Ml IVPB Infused Q24H HERNANDEZ Infusion Tranexamic Acid/Sodium Chloride 1,000 mg in 100 mls @ 200 mls/hr 09/04/24 09:34 Tranexamic Acid 1,000mg/[id number] IVPB 09/04/24 10:03 ONCE ONE Cefazolin Sodium 2 gm in 50 mls @ 100 mls/hr 09/04/24 09:34 Ancef 2 Gm/D5w 50 Ml IVPB 09/04/24 10:03 ONCE ONE Morphine Sulfate 2 mg 09/02/24 21:59 09/04/24 05:45 Morphine Sulfate (*Crx) 2 Mg/Ml Inj IV PUSH 2 mg Q2H PRN Administration Pain Rated 7-10 Ondansetron HCl 4 mg 09/02/24 21:59 09/02/24 23:31 Ondansetron Inj 4 Mg/2 Ml Vial IV PUSH 4 mg Q4H PRN Administration Nausea Pantoprazole Sodium 40 mg 09/03/24 09:00 09/04/24 08:41 Pantoprazole 40 Mg Tablet PO 40 mg QAM HERNANDEZ Administration Radiology Results: ITS Impressions Knee X-Ray 09/02/24 20:20 IMPRESSION: No acute osseous finding in the left knee. Chest X-Ray 09/02/24 20:22 IMPRESSION: Subsegmental bibasilar atelectasis/consolidation. Moderate bilateral pleural effusions. Hip/Pelvis X-Ray 09/02/24 20:23 IMPRESSION: Transcervical left femoral neck fracture with superior displacement. Head CT 09/02/24 20:40 IMPRESSION: No acute intracranial process. Cervical Spine CT 09/02/24 20:41 IMPRESSION: No acute fracture or traumatic malalignment in the cervical spine. Labs Labs: Laboratory Results - last 24 hr 09/04/24 05:50 WBC 10.0 RBC 3.19 L Hgb 10.1 L Hct 31.0 L MCV 97.2 MCH 31.7 MCHC 32.6 RDW 14.8 H Plt Count 114 L MPV 13.6 H Immature Gran % (Auto) 0.6 H Neut % (Auto) 87.3 H Lymph % (Auto) 6.6 L [place] % (Auto) 4.1 Eos % (Auto) 1.1 Baso % (Auto) 0.3 Lymph # (Auto) 0.66 L [place] # (Auto) 0.4 Eos # (Auto) 0.1 Baso # (Auto) 0.0 Abs Immat Gran (auto) 0.06 H Absolute Neuts (auto) 8.8 H Absolute Nucleated RBC 0.000 Nucleated RBC % 0.0 % Immature Plt Fraction 12.3 H Sodium 143 Potassium 3.3 L Chloride 95 L Carbon Dioxide > 40 H Anion Gap BUN 45 H Creatinine 1.40 H Estim Creat Clear Calc 12 Estimated GFR 36 L Glucose 89 Calcium 9.0 Total Bilirubin 1.1 AST 34 ALT 19 Alkaline Phosphatase 64 Total Protein 6.0 L Albumin 3.2 L
--- NOTE | 2024-09-04 14:52 | PCSTNOTE ---
Therapist attempted evaluation however patient was NPO for surgery today. Will try again tomorrow.
[2024-09-04] MEDS: ALPRAZolam (*CRX) 0.5 MG TABLET 1 MG PO (18:10)
[2024-09-05 05:35] VITALS: BP 92/54; PULSE 92; RESP 16; TEMP 36.3; O2SAT 91
[2024-09-05 06:01] LABS: Basophils Percent Auto 0.3 % (0.2-1.2); Eosinophils Percent Auto 0.1 % (0-4.4); Hematocrit 33.5 % (37.0-47.0); Hemoglobin 10.5 g/dL (12.0-15.0); Immature Granulocyte Absolute 0.05 K/mm3 (0.00-0.031); Immature Granulocyte Percent A 0.4 % (0-0.5); Immature Platelet Fraction Pct 13.7 % (0.9-11.2); Lymphocytes Absolute Auto 0.84 K/mm3 (0.9-3.2); Lymphocytes Percent Auto 7.1 % (18.3-44.2); Mean Corpuscular HGB Conc 31.3 g/dl (32-36); Mean Corpuscular Hemoglobin 30.5 pg (26-34); Mean Corpuscular Volume 97.4 fl (80-100); Mean Platelet Volume 13.2 fl (7.4-10.4); Monocytes Absolute Auto 0.5 K/mm3 (0.1-0.6); Neutrophils Absolute Auto 10.5 K/mm3 (1.3-6.7); Neutrophils Percent Auto 88.1 % (45.5-73.1); Platelet Count Result 142 k/mm3 (150-375); Red Blood Count 3.44 M/mm3 (4.2-5.4); Red Cell Distribution Width 14.7 % (11.5-14.5); White Blood Count 11.9 K/mm3 (4.5-10.0)
[2024-09-05 06:15] LABS: Alanine Aminotransferase 30 U/L (6-35); Albumin Level 3.3 g/dL (3.5-5.1); Alkaline Phosphatase 77 U/L (38-126); Aspartate Amino Transferase 55 U/L (14-36); Bilirubin,Total 1.1 mg/dL (0.2-1.3); Blood Urea Nitrogen 64 mg/dL (7-17); Calcium 8.9 mg/dL (8.4-10.2); Carbon Dioxide > 40 mmol/L (22-30); Chloride 94 mmol/L (98-107); Estimated CRCL calculation 10 ml/min; Estimated Glomerular Filt Rate 30; Glucose 104 mg/dL (65-110); Potassium 3.4 mmol/L (3.4-5.0); Sodium 143 mmol/L (137-145)
--- NOTE | 2024-09-05 07:24 | WPDHPUPDATE1 ---
History and Physical Update Update Date/Time: 09/05/24 07:24 History and Physical has been reviewed, including an updated exam of the patient. There are NO changes in the patient's condition. Risks, benefits, and alternatives have been discussed and questions answered. Patient agrees to proceed with procedure.
--- NOTE | 2024-09-05 08:52 | ECG_ITS ---
Test Date: 2024-09-05 09:31:10 Measurements Intervals [place] Rate: 77 P: 0 WI: 0 QRS: -57 QRSD: 132 T: 256 QT: 416 QTc: 471 Interpretive Statements ATRIAL FIBRILLATION INTRAVENTRICULAR CONDUCTION DELAY [130+ ms QRS DURATION] POSSIBLE ANTERIOR MYOCARDIAL INFARCTION , OF INDETERMINATE AGE [30 ms Q WAVE IN V3/V4, OR R < 0.2 mV IN V4] LEFT AXIS DEVIATION NONSPECIFIC ST AND T-WAVE ABNORMALITY ABNORMAL ECG No previous ECG available for comparison Electronically Signed On 09-05-2024 11:00:41 [employer] QUALIFIED by Giovanny Davidson M.D.
--- NOTE | 2024-09-05 09:11 | PM.IMPN ---
Progress Note: A&P Assessment and Plan (1) Chronic respiratory failure with hypoxia: Code(s): J96.11 - Chronic respiratory failure with hypoxia Status: Acute Assessment and Plan: Chronic, baseline oxygen supplementation of 3 L NC (2) Multiple falls: Code(s): R29.6 - Repeated falls Status: Acute Assessment and Plan: Patient had a fall of unknown etiology. - Chest XR: Subsegmental bibasilar atelectasis/consolidation. Moderate bilateral pleural effusions. - Knee XR: No acute osseous finding in the left knee. - Hip/pelvis XR: Transcervical left femoral neck fracture with superior displacement. - Head CT: No acute intracranial process. - C spine CT:No acute fracture or traumatic malalignment in the cervical spine. - Remain on bed rest until further decision is made about surgical intervention (3) Closed fracture of left hip: Qualifiers: Encounter type: initial encounter Qualified Code(s): S72.002A - Fracture of unspecified part of neck of left femur, initial encounter for closed fracture Code(s): S72.002A - Fracture of unspecified part of neck of left femur, initial encounter for closed fracture Status: Acute Assessment and Plan: - Hip/pelvis XR: Transcervical left femoral neck fracture with superior displacement. - Analgesics - DVT ppx - Diet: NPO pending ortho evaluation - Ortho consulted, appreciate recommendations Patient would require a left hip bipolar hip replacement. Dr. Murphy discussed treatment options with family. Plan for surgery on 09/05 NPO at midnight initially anticipated surgery- but cancelled. pt is DNR and no acute interventions pr daughter POA. will resume diet appropriate for pt (4) UTI (urinary tract infection): Code(s): N39.0 - Urinary tract infection, site not specified Status: Acute Assessment and Plan: Per patients hospice nurse, she was recently diagnosed with a UTI and finished her course of macrobid on 08/28. - UA: cloudy appearance with 1+ protein, trace non hemolyzed blood, 3+ leukocytes, 3-5 RBC, > 100 WBC, 4+ bacteria. - UC obtained on 09/02: pending - No previous micro to be reviewed - started on Rocephin on 09/02/24 stopped rocephine based on ua and started on cefepime. continue iV (5) Essential (primary) hypertension: Code(s): I10 - Essential (primary) hypertension Status: Acute Assessment and Plan: Chronic, continue home medications - Carvedilol 6.25 mg BID - Lasix 40 mg daily - Monitor Time Spent With Patient Time with patient: Greater than 35 minutes Subjective Date/time seen: 09/05/24 09:11 Interval history: 88 year old female with past medical history of paroxysmal afib, DM type 2, HTN, CHF, chronic respiratory failure with hypoxia and currently undergoing hospice care for CHF presents to the hospital following a fall. Patient is pleasant with family at bedside. She is more alert today and able hold conversation. She has no complaints denies chest pain, shortness a breath, nausea/ vomiting, and abdominal pain. She also denies urinary symptoms. States her back pain/hip pain is currently well controlled on current regimen. Plan is for surgery tomorrow with Dr. Murphy. 09/05- assuming care. Pt is pulling her tele off- will d/c as had been stable. no surgery is scheduled. Comfort care. Review of Systems Review of Systems: All systems reviewed & are unremarkable except as noted in HPI and below ROS unobtainable: Yes unobtainable due to mental status Exam Narrative: AF HR 83 RR 18 SPO2 95 3L NC BP 142/64 General: Female in no acute respiratory distress who is nontoxic appearing, lying semi recumbent in bed. HEENT: Normocephalic. Atraumatic. Extraocular movement intact. Sclera clear and anicteric. No facial asymmetry. Chest: Lungs are clear to auscultation bilaterally. No wheezes or crackles. CV: Heart was regular rate and rhythm. S1-S2. No murmurs, gallops, or rubs. Abd: Abdomen was soft. Nontender. Nondistended. Positive bowel sounds. No organomegaly or masses. Ext: No clubbing, cyanosis, or edema. 2+ DP pulses bilaterally. Left lower extremity externally rotated and shortened. Neuro: Patient is alert. Cranial nerves 2-12 are intact. Speech is clear. Const: General: in distress and uncomfortable HENMT: Mouth: Yes moist mucous membranes and Yes dry mucous membranes Eyes: General: appearance normal, both eyes and all related structures Sclera: sclerae normal Pupils: Equal, round and reactive pupils present Neck: Neck: supple Resp: Effort & Inspection: normal respiratory effort Auscultation: diminished lung sounds : General: Yes bladder normal to palpation Bimanual exam- vagina & uterus: bladder normal to palpation Skin: General skin exam: normal color Neuro: Cranial nerves: Yes Equal, round and reactive pupils present Other: could not assess bob to confused state Objective Data Vital Signs Vital Signs: Vital Signs - 24 hr 09/04/24 09:17 09/04/24 09:31 09/04/24 09:54 Temperature Pulse Rate Respiratory Rate Blood Pressure Pulse Oximetry 98 78 L 95 Oxygen Delivery Nasal Cannula Room Air Nasal Cannula Oxygen Flow Rate 3 3 09/04/24 12:01 09/04/24 16:00 09/04/24 20:09 Temperature 97.2 F L Pulse Rate 83 98 78 Respiratory Rate 16 Blood Pressure 85/57 L Pulse Oximetry 92 Oxygen Delivery Oxygen Flow Rate 09/04/24 20:00 09/04/24 21:45 09/05/24 05:35 Temperature 97.4 F L Pulse Rate 80 92 Respiratory Rate 16 Blood Pressure 92/54 L Pulse Oximetry 92 91 Oxygen Delivery Nasal Cannula Oxygen Flow Rate 3 Intake/Output Intake/Output: Intake & Output 09/02/24 09/03/24 09/04/24 09/05/24 23:59 23:59 23:59 23:59 Intake Total 160 50 50 Output Total 1130 650 175 Balance -970 -600 -125 Meds/Results Medications: Active Medications Generic Name Dose Route Start Last Admin Trade Name Freq PRN Reason Stop Dose Admin Alprazolam 1 mg 09/03/24 05:51 09/04/24 18:10 Alprazolam (*Crx) 0.5 Mg Tablet PO 1 mg Q4H PRN Administration Anxiety Bisacodyl 10 mg 09/03/24 00:05 Bisacodyl 10 Mg Suppository RECTAL ONCE PRN Constipation Carvedilol 6.25 mg 09/03/24 09:00 09/04/24 21:45 Carvedilol 6.25 Mg Tablet PO 6.25 mg Q12HR HERANNDEZ Administration Docusate Sodium 100 mg 09/03/24 21:00 09/04/24 21:45 Docusate Sodium Liq 100 Mg/10 Ml Udc PO Not Given Q12HR HERNANDEZ Escitalopram Oxalate 20 mg 09/03/24 09:00 09/04/24 08:42 Escitalopram Oxalate 10 Mg Tablet PO 20 mg DAILY HERNANDEZ Administration Furosemide 40 mg 09/03/24 09:00 09/04/24 08:39 Furosemide 40 Mg Tablet PO Not Given DAILY [facility] Heparin Sodium (Porcine) 5,000 units 09/03/24 09:00 09/04/24 08:38 Heparin Sodium 5,000 Units/Ml Vial SUB-Q Not Given Q12HR [facility] Ceftriaxone Sodium 1 gm in 50 mls @ 100 mls/hr 09/03/24 06:00 09/05/24 05:44 Rocephin 1 Gm/Ns 50 Ml IVPB Infused Q24H HERNANDEZ Infusion Tranexamic Acid/Sodium Chloride 1,000 mg in 100 mls @ 200 mls/hr 09/05/24 06:30 Tranexamic Acid 1,000mg/[id number] IVPB 09/05/24 06:59 ONCE ONE Miscellaneous Information 0 each 09/04/24 00:01 Tranexamic Acid- Recommend Dose Of 10-15 Mg/Kg- Recommend 400mg Iv X1 Preop XX 10/04/24 00:00 CLARIFY [facility] Morphine Sulfate 2 mg 09/02/24 21:59 09/04/24 15:26 Morphine Sulfate (*Crx) 2 Mg/Ml Inj IV PUSH 2 mg Q2H PRN Administration Pain Rated 7-10 Ondansetron HCl 4 mg 09/02/24 21:59 09/02/24 23:31 Ondansetron Inj 4 Mg/2 Ml Vial IV PUSH 4 mg Q4H PRN Administration Nausea Pantoprazole Sodium 40 mg 09/03/24 09:00 09/04/24 08:41 Pantoprazole 40 Mg Tablet PO 40 mg QAM HERNANDEZ Administration Radiology Results: ITS Impressions Knee X-Ray 09/02/24 20:20 IMPRESSION: No acute osseous finding in the left knee. Chest X-Ray 09/02/24 20:22 IMPRESSION: Subsegmental bibasilar atelectasis/consolidation. Moderate bilateral pleural effusions. Hip/Pelvis X-Ray 09/02/24 20:23 IMPRESSION: Transcervical left femoral neck fracture with superior displacement. Head CT 09/02/24 20:40 IMPRESSION: No acute intracranial process. Cervical Spine CT 09/02/24 20:41 IMPRESSION: No acute fracture or traumatic malalignment in the cervical spine. Labs Labs: Laboratory Results - last 24 hr 09/05/24 05:46 WBC 11.9 H RBC 3.44 L Hgb 10.5 L Hct 33.5 L MCV 97.4 MCH 30.5 MCHC 31.3 L RDW 14.7 H Plt Count 142 L MPV 13.2 H Immature Gran % (Auto) 0.4 Neut % (Auto) 88.1 H Lymph % (Auto) 7.1 L [place] % (Auto) 4.0 Eos % (Auto) 0.1 Baso % (Auto) 0.3 Lymph # (Auto) 0.84 L [place] # (Auto) 0.5 Eos # (Auto) 0.0 Baso # (Auto) 0.0 Abs Immat Gran (auto) 0.05 H Absolute Neuts (auto) 10.5 H Absolute Nucleated RBC 0.000 Nucleated RBC % 0.0 % Immature Plt Fraction 13.7 H Sodium 143 Potassium 3.4 Chloride 94 L Carbon Dioxide > 40 H Anion Gap BUN 64 H D Creatinine 1.60 H Estim Creat Clear Calc 10 Estimated GFR 30 L Glucose 104 Calcium 8.9 Total Bilirubin 1.1 AST 55 H ALT 30 Alkaline Phosphatase 77 Total Protein 7.0 Albumin 3.3 L Quality VTE Prophylaxis VTE prophylaxis: pharmacologic ordered
[2024-09-05] MEDS: MORPHINE SULFATE (*CRX) 2 MG/ML INJ IV PUSH ×2 (13:02→22:00)
[2024-09-05] MEDS: CEFEPIME 1 GM/NS 50 ML 1 GM/50 ML BAG IVPB (13:02)
[2024-09-05 14:00] VITALS: BP 111/63; PULSE 75; RESP 14; TEMP 36.4; O2SAT 93
--- NOTE | 2024-09-05 16:12 | PCSTNOTE ---
Please refer to the Bedside Swallow Evaluation in the EMR. Please note, silent aspiration cannot be ruled out at bedside.
[2024-09-05 22:00] VITALS: BP 121/60; PULSE 78; RESP 16; TEMP 36.8; O2SAT 100
[2024-09-06 06:00] VITALS: RESP 18
[2024-09-06 06:16] LABS: Basophils Percent Auto 0.2 % (0.2-1.2); Eosinophils Absolute Auto 0.2 K/mm3 (0-0.3); Eosinophils Percent Auto 1.7 % (0-4.4); Hematocrit 33.6 % (37.0-47.0); Hemoglobin 10.7 g/dL (12.0-15.0); Immature Granulocyte Absolute 0.06 K/mm3 (0.00-0.031); Immature Granulocyte Percent A 0.5 % (0-0.5); Immature Platelet Fraction Pct 15.6 % (0.9-11.2); Lymphocytes Absolute Auto 1.12 K/mm3 (0.9-3.2); Lymphocytes Percent Auto 9.1 % (18.3-44.2); Mean Corpuscular HGB Conc 31.8 g/dl (32-36); Mean Corpuscular Hemoglobin 30.9 pg (26-34); Mean Corpuscular Volume 97.1 fl (80-100); Mean Platelet Volume 13.9 fl (7.4-10.4); Monocytes Absolute Auto 0.9 K/mm3 (0.1-0.6); Neutrophils Absolute Auto 10.1 K/mm3 (1.3-6.7); Neutrophils Percent Auto 81.5 % (45.5-73.1); Platelet Count Result 173 k/mm3 (150-375); Red Blood Count 3.46 M/mm3 (4.2-5.4); Red Cell Distribution Width 14.6 % (11.5-14.5); White Blood Count 12.3 K/mm3 (4.5-10.0)
[2024-09-06 06:32] LABS: Alanine Aminotransferase 24 U/L (6-35); Albumin Level 3.4 g/dL (3.5-5.1); Alkaline Phosphatase 74 U/L (38-126); Aspartate Amino Transferase 42 U/L (14-36); Blood Urea Nitrogen 79 mg/dL (7-17); Calcium 8.7 mg/dL (8.4-10.2); Carbon Dioxide > 40 mmol/L (22-30); Chloride 92 mmol/L (98-107); Estimated CRCL calculation 10 ml/min; Estimated Glomerular Filt Rate 30; Glucose 91 mg/dL (65-110); Potassium 3.6 mmol/L (3.4-5.0); Sodium 136 mmol/L (137-145)
--- NOTE | 2024-09-06 07:27 | P.PNIM_ITS ---
Progress Note: A&P Assessment and Plan (1) Chronic respiratory failure with hypoxia: Code(s): J96.11 - Chronic respiratory failure with hypoxia Status: Acute Assessment and Plan: Chronic, baseline oxygen supplementation of 3 L NC (2) Multiple falls: Code(s): R29.6 - Repeated falls Status: Acute Assessment and Plan: Patient had a fall of unknown etiology. - Chest XR: Subsegmental bibasilar atelectasis/consolidation. Moderate bilateral pleural effusions. - Knee XR: No acute osseous finding in the left knee. - Hip/pelvis XR: Transcervical left femoral neck fracture with superior displacement. - Head CT: No acute intracranial process. - C spine CT:No acute fracture or traumatic malalignment in the cervical spine. - Remain on bed rest until further decision is made about surgical intervention (3) Closed fracture of left hip: Qualifiers: Encounter type: initial encounter Qualified Code(s): S72.002A - Fracture of unspecified part of neck of left femur, initial encounter for closed fracture Code(s): S72.002A - Fracture of unspecified part of neck of left femur, initial encounter for closed fracture Status: Acute Assessment and Plan: - Hip/pelvis XR: Transcervical left femoral neck fracture with superior displacement. - Analgesics - DVT ppx - Diet: NPO pending ortho evaluation - Ortho consulted, appreciate recommendations Patient would require a left hip bipolar hip replacement. Dr. Murphy discussed treatment options with family. Plan for surgery on 09/05 NPO at midnight initially anticipated surgery- but cancelled. pt is DNR and no acute interventions pr daughter POA. will resume diet appropriate for pt (4) UTI (urinary tract infection): Code(s): N39.0 - Urinary tract infection, site not specified Status: Acute Assessment and Plan: Per patients hospice nurse, she was recently diagnosed with a UTI and finished her course of macrobid on 08/28. - UA: cloudy appearance with 1+ protein, trace non hemolyzed blood, 3+ leukocytes, 3-5 RBC, > 100 WBC, 4+ bacteria. - UC obtained on 09/02: pending - No previous micro to be reviewed - started on Rocephin on 09/02/24 stopped rocephine based on ua and started on cefepime. continue iV (5) Essential (primary) hypertension: Code(s): I10 - Essential (primary) hypertension Status: Acute Assessment and Plan: Chronic, continue home medications - Carvedilol 6.25 mg BID - Lasix 40 mg daily - Monitor Time Spent With Patient Time with patient: Greater than 35 minutes Subjective Date/time seen: 09/06/24 07:27 Interval history: 88 year old female with past medical history of paroxysmal afib, DM type 2, HTN, CHF, chronic respiratory failure with hypoxia and currently undergoing hospice care for CHF presents to the hospital following a fall. Patient is pleasant with family at bedside. She is more alert today and able hold conversation. She has no complaints denies chest pain, shortness a breath, nausea/ vomiting, and abdominal pain. She also denies urinary symptoms. States her back pain/hip pain is currently well controlled on current regimen. Plan is for surgery tomorrow with Dr. Murphy. 09/05- assuming care. Pt is pulling her tele off- will d/c as had been stable. no surgery is scheduled. Comfort care. 09/06- seen and examined. swallow studies completed- will try to find a diet for pt to limit aspiration. proceeding with comfort measures per pt and family wishes Review of Systems Review of Systems: All systems reviewed & are unremarkable except as noted in HPI and below ROS unobtainable: Yes unobtainable due to mental status Exam Narrative: AF HR 83 RR 18 SPO2 95 3L NC BP 142/64 General: Female in no acute respiratory distress who is nontoxic appearing, lying semi recumbent in bed. HEENT: Normocephalic. Atraumatic. Extraocular movement intact. Sclera clear and anicteric. No facial asymmetry. Chest: Lungs are clear to auscultation bilaterally. No wheezes or crackles. CV: Heart was regular rate and rhythm. S1-S2. No murmurs, gallops, or rubs. Abd: Abdomen was soft. Nontender. Nondistended. Positive bowel sounds. No organomegaly or masses. Ext: No clubbing, cyanosis, or edema. 2+ DP pulses bilaterally. Left lower extremity externally rotated and shortened. Neuro: Patient is alert. Cranial nerves 2-12 are intact. Speech is clear. Const: General: in distress and uncomfortable HENMT: Mouth: Yes moist mucous membranes and Yes dry mucous membranes Eyes: General: appearance normal, both eyes and all related structures Sclera: sclerae normal Pupils: Equal, round and reactive pupils present Neck: Neck: supple Resp: Effort & Inspection: normal respiratory effort Auscultation: diminished lung sounds : General: Yes bladder normal to palpation Bimanual exam- vagina & uterus: bladder normal to palpation Skin: General skin exam: normal color Neuro: Cranial nerves: Yes Equal, round and reactive pupils present Other: could not assess bob to confused state Objective Data Vital Signs Vital Signs: Vital Signs - 24 hr 09/05/24 14:00 09/05/24 22:00 09/06/24 06:00 Temperature 97.6 F 98.2 F Pulse Rate 75 78 Respiratory Rate 14 16 18 Blood Pressure 111/63 121/60 Pulse Oximetry 93 100 Intake/Output Intake/Output: Intake & Output 09/03/24 09/04/24 09/05/24 09/06/24 23:59 23:59 23:59 23:59 Intake Total 160 50 650 100 Output Total 1130 650 725 400 Balance -970 -600 -75 -300 Meds/Results Medications: Active Medications Generic Name Dose Route Start Last Admin Trade Name Freq PRN Reason Stop Dose Admin Alprazolam 1 mg 09/03/24 05:51 09/04/24 18:10 Alprazolam (*Crx) 0.5 Mg Tablet PO 1 mg Q4H PRN Administration Anxiety Bisacodyl 10 mg 09/03/24 00:05 Bisacodyl 10 Mg Suppository RECTAL ONCE PRN Constipation Heparin Sodium (Porcine) 5,000 units 09/03/24 09:00 09/04/24 08:38 Heparin Sodium 5,000 Units/Ml Vial SUB-Q Not Given Q12HR HERNANDEZ Cefepime HCl 1 gm in 50 mls @ 100 mls/hr 09/05/24 13:00 09/05/24 13:02 Maxipime 1 Gm/Ns 50 Ml IVPB 100 mls/hr DAILY HERNANDEZ Administration Morphine Sulfate 2 mg 09/02/24 21:59 09/05/24 22:00 Morphine Sulfate (*Crx) 2 Mg/Ml Inj IV PUSH 2 mg Q2H PRN Administration Pain Rated 7-10 Ondansetron HCl 4 mg 09/02/24 21:59 09/02/24 23:31 Ondansetron Inj 4 Mg/2 Ml Vial IV PUSH 4 mg Q4H PRN Administration Nausea Radiology Results: ITS Impressions Knee X-Ray 09/02/24 20:20 IMPRESSION: No acute osseous finding in the left knee. Chest X-Ray 09/02/24 20:22 IMPRESSION: Subsegmental bibasilar atelectasis/consolidation. Moderate bilateral pleural effusions. Hip/Pelvis X-Ray 09/02/24 20:23 IMPRESSION: Transcervical left femoral neck fracture with superior displacement. Head CT 09/02/24 20:40 IMPRESSION: No acute intracranial process. Cervical Spine CT 09/02/24 20:41 IMPRESSION: No acute fracture or traumatic malalignment in the cervical spine. Labs Labs: Laboratory Results - last 24 hr 09/05/24 09/06/24 09:08 05:22 WBC 12.3 H RBC 3.46 L Hgb 10.7 L Hct 33.6 L MCV 97.1 MCH 30.9 MCHC 31.8 L RDW 14.6 H Plt Count 173 MPV 13.9 H Immature Gran % (Auto) 0.5 Neut % (Auto) 81.5 H Lymph % (Auto) 9.1 L [place] % (Auto) 7.0 Eos % (Auto) 1.7 Baso % (Auto) 0.2 Lymph # (Auto) 1.12 [place] # (Auto) 0.9 H Eos # (Auto) 0.2 Baso # (Auto) 0.0 Abs Immat Gran (auto) 0.06 H Absolute Neuts (auto) 10.1 H Absolute Nucleated RBC 0.000 Nucleated RBC % 0.0 % Immature Plt Fraction 15.6 H Sodium 136 L Potassium 3.6 Chloride 92 L Carbon Dioxide > 40 H Anion Gap BUN 79 H D Creatinine 1.60 H Estim Creat Clear Calc 10 Estimated GFR 30 L Glucose 91 Calcium 8.7 Total Bilirubin 1.0 AST 42 H ALT 24 Alkaline Phosphatase 74 Total Protein 7.0 Albumin 3.4 L Blood Type O Positive Antibody Screen Negative Quality VTE Prophylaxis VTE prophylaxis: pharmacologic ordered
[2024-09-06] MEDS: CEFEPIME 1 GM/NS 50 ML 1 GM/50 ML BAG IVPB (08:29)
[2024-09-06 08:35] VITALS: O2SAT 99
[2024-09-06] MEDS: ALPRAZolam (*CRX) 0.5 MG TABLET 1 MG PO (12:02)
[2024-09-06] MEDS: MORPHINE SULFATE (*CRX) 2 MG/ML INJ IV PUSH (12:06)
--- NOTE | 2024-09-06 12:13 | PCNFU ---
Nutrition Follow-Up Complete: Severe protein calorie malnutrition related to chronic illness, loss of appetite as evidenced by intakes <75% needs >1 month; severe muscle wasting and fat loss goal: Improve PO intake to at least 50% meals and supplements We will continue current goal. Limited progress. Pt current nutrition is Minced and Moist, Level 5/Heart Healthy with Moderately Thick liquids, Level 2. Last recorded weight is 28.7 kg, down from 30.1 kg on admit. Bowel Motility: No BM reported. Labs Reviewed: Cr 1.6, BUN 79, GFR 30, Na 136, Hct 33.6, Hgb 10.7 Meds Noted: Zofran, Cefepime. Skin: WNL Additional Notes: Patient remains on a Minced and Moist, Level 5 diet with Moderately Thick liquids, Level 2 with diet supplements of Ensure Compact BID. Intake fair. Spoke with nursing today patient is comfort measures and discussions regarding home with hospice. Agree with diet orders. Monitoring intakes, weights, labs, supplement tolerance, plan of care Follow up in 3 days
--- NOTE | 2024-09-06 12:52 | PM.DS ---
DS: Admitting Diagnosis Discharge Date 09/06 Admitting Diagnosis fall DS: Discharge Diagnosis Discharge Diagnosis (1) Chronic respiratory failure with hypoxia: Code(s): J96.11 - Chronic respiratory failure with hypoxia Status: Acute (2) Multiple falls: Code(s): R29.6 - Repeated falls Status: Acute (3) Closed fracture of left hip: Qualifiers: Encounter type: initial encounter Qualified Code(s): S72.002A - Fracture of unspecified part of neck of left femur, initial encounter for closed fracture Code(s): S72.002A - Fracture of unspecified part of neck of left femur, initial encounter for closed fracture Status: Acute (4) UTI (urinary tract infection): Code(s): N39.0 - Urinary tract infection, site not specified Status: Acute (5) Essential (primary) hypertension: Code(s): I10 - Essential (primary) hypertension Status: Acute DS: Summary Hospital Course Hospital Course: 88 year old female with past medical history of paroxysmal afib, DM type 2, HTN, CHF, chronic respiratory failure with hypoxia and currently undergoing hospice care for CHF presents to the hospital following a fall. Patient is pleasant with family at bedside. She is more alert today and able hold conversation. She has no complaints denies chest pain, shortness a breath, nausea/ vomiting, and abdominal pain. She also denies urinary symptoms. States her back pain/hip pain is currently well controlled on current regimen. Plan is for surgery tomorrow with Dr. Murphy. Initially, surgery was scheduled but cancelled per pt's family wishes. she was started on Rocephin for uti,then switched to cefepime based on lab results- mucin producing Ps aerugenosa. Today, 09/06 downgraded to cipro for 5 more doses to complete the treatment- last dose 09/11 at 0900 am We will complete UTI treatment and further management would be directed per hospice team. Status at Discharge Functional status at discharge: bed bound Overall status at discharge: patient is not back to baseline Time Spent with Patient Time attestation: Total time spent providing and/or coordinating discharge services: Time spent: Greater than 30 minutes Exam Narrative: General: Female in no acute respiratory distress who is nontoxic appearing, lying semi recumbent in bed. HEENT: Normocephalic. Atraumatic. Extraocular movement intact. Sclera clear and anicteric. No facial asymmetry. Chest: Lungs are clear to auscultation bilaterally. No wheezes or crackles. CV: Heart was regular rate and rhythm. S1-S2. No murmurs, gallops, or rubs. Abd: Abdomen was soft. Nontender. Nondistended. Positive bowel sounds. No organomegaly or masses. Ext: No clubbing, cyanosis, or edema. 2+ DP pulses bilaterally. Left lower extremity externally rotated and shortened. Neuro: Patient is alert. Cranial nerves 2-12 are intact. Speech is clear. Const: General: in distress and uncomfortable HENMT: Mouth: Yes moist mucous membranes and Yes dry mucous membranes Eyes: General: appearance normal, both eyes and all related structures Sclera: sclerae normal Pupils: Equal, round and reactive pupils present Neck: Neck: supple Resp: Effort & Inspection: normal respiratory effort Auscultation: diminished lung sounds : General: Yes bladder normal to palpation Bimanual exam- vagina & uterus: bladder normal to palpation Skin: General skin exam: normal color Neuro: Cranial nerves: Yes Equal, round and reactive pupils present Other: could not assess bob to confused state DS: Data Data Completed and Pending Labs on day of discharge: Labs from last 24 hours 09/06/24 09/06/24 12:31 05:22 WBC 12.3 H RBC 3.46 L Hgb 10.7 L Hct 33.6 L MCV 97.1 MCH 30.9 MCHC 31.8 L RDW 14.6 H Plt Count 173 MPV 13.9 H Immature Gran % (Auto) 0.5 Neut % (Auto) 81.5 H Lymph % (Auto) 9.1 L [place] % (Auto) 7.0 Eos % (Auto) 1.7 Baso % (Auto) 0.2 Lymph # (Auto) 1.12 [place] # (Auto) 0.9 H Eos # (Auto) 0.2 Baso # (Auto) 0.0 Abs Immat Gran (auto) 0.06 H Absolute Neuts (auto) 10.1 H Absolute Nucleated RBC 0.000 Nucleated RBC % 0.0 % Immature Plt Fraction 15.6 H Sodium 136 L Potassium 3.6 Chloride 92 L Carbon Dioxide > 40 H Anion Gap BUN 79 H D Creatinine 1.60 H Estim Creat Clear Calc 10 Estimated GFR 30 L Glucose 91 Calcium 8.7 Total Bilirubin 1.0 AST 42 H ALT 24 Alkaline Phosphatase 74 Total Protein 7.0 Albumin 3.4 L SARS-CoV-2 RNA (RT-PCR) Pending Discharge Plan Discharge Consulting providers: Miles Murphy Discharging Clinician: Gloria Estrada Patient Disposition: Other Activity: may shower Diet: as tolerated and regular Discharge Instructions: discharge to [facility] with [facility] Patient Instructions: Antibiotic Form, Pain Management (DC) Stand Alone Forms: General Discharge Information Discharge Medications: New ciprofloxacin HCl 500 mg Tablet 500 mg PO DAILY Qty: 5 0RF Continued alprazolam 0.5 mg tablet 1 mg PO Q4H PRN (Reason: Anxiety) acetaminophen 325 mg Tablet 650 mg PO Q6H PRN (Reason: Pain) polyethylene glycol 3350 [Miralax] 17 gram Powder In Packet 17 g PO DAILY hydrocodone-acetaminophen [[place]] 5-325 mg Tablet 1 tablet PO Q4H PRN (Reason: Pain) ondansetron HCl [Zofran] 4 mg Tablet 4 mg PO Q4H PRN (Reason: nausea/vomiting) melatonin 3 mg Tablet 6 mg PO HS PRN (Reason: Insomnia) morphine [Roxanol] 20 mg/5 mL (4 mg/mL) Solution 5 mg PO Q4H PRN (Reason: pain/dyspnea) meclizine [Dramamine (meclizine)] 25 mg Tablet 25 mg PO DAILY PRN (Reason: Dizziness) hyoscyamine sulfate [Levsin] 0.125 mg Tablet 0.125 mg PO Q4H PRN (Reason: excess secretions) bisacodyl [Dulcolax (bisacodyl)] 5 mg Tablet,Delayed Release (Dr/Ec) 5 mg PO DAILY Held carvedilol [Coreg] 6.25 mg Tablet 6.25 mg PO Q12HR 90 Days Qty: 180 0RF Hold Instructions: Resume on 09/10/24. further med manegement poer hospice team sennosides-docusate sodium [Senna-S] 8.6-50 mg Tablet 1 tab-cap PO DAILY PRN (Reason: Constipation) Hold Instructions: Resume on 09/10/24. further med manegement poer hospice team furosemide 20 mg tablet 40 mg PO DAILY Hold Instructions: Resume on 09/10/24. further [facility] hospice team pantoprazole 40 mg tablet,delayed release (DR/EC) 40 mg PO QAM Qty: 90 1RF Hold Instructions: Resume on 09/10/24. further [facility] hospice team escitalopram oxalate [Lexapro] 20 mg tablet 20 mg PO DAILY Qty: 90 1RF Hold Instructions: Resume on 09/10/24. further [facility] hospice team Date of admission: 09/03/24 08:28 Primary Care Provider: UNKNOWN,DOCTOR Admitting Provider: Benjamin Banks Attending physician on admission: Candi Lucas Condition: Stable Quality VTE Prophylaxis VTE prophylaxis: pharmacologic ordered Hospitalist MIPS Heart Failure (Exclusion) Patient has history of Heart Transplant or Left Ventricular Assistive Device?: No IF YES, STOP HERE Heart Failure (Qualifier) Patient has current or prior documentation of LVEF less than or equal to 40%, or mod/servere depressed LVSF?: No IF NO, STOP HERE
[2024-09-06 13:19] LABS: SARS-CoV-2 RNA PCR Negative (Negative)
== END 2024-09-06 15:20 | disposition hospice, inpatient (51) | DRG 536 ==
LOC: ANHED 21:12 → ANH2MED 22:28
PROVIDERS: Admitting Provider Internal Medicine; Emergency Provider Emergency Medicine; Visit Provider Nurse Practitioner
DX: S72.032A Displaced midcervical fracture of left femur, initial encounter for closed fracture (principal); I42.9 Cardiomyopathy, unspecified; J96.11 Chronic respiratory failure with hypoxia; N39.0 Urinary tract infection, site not specified; I50.9 Heart failure, unspecified; I48.0 Paroxysmal atrial fibrillation; E11.9 Type 2 diabetes mellitus without complications; R29.6 Repeated falls; M17.0 Bilateral primary osteoarthritis of knee; F41.9 Anxiety disorder, unspecified; W19.XXXA Unspecified fall, initial encounter; Z11.52 Encounter for screening for COVID-19; Z51.5 Encounter for palliative care
CPT/HCPCS: 36415; 70450; 71045; 72125; 73502; 73562; 80053; 81001; 85025; 85055; 85610; 85730; 86850; 86900; 86901; 87077; 87086; 87088; 87186; 87635; 92610; 93005; 96374; 96375; 99285; A9270; G0378; J0692; J0696; J2060; J2270; J2405; J3480